=== PATIENT | male | born 1945 | race Caucasian/White ===

== ENCOUNTER → 2017-01-02 | Outpatient (CLI) | payer MEDICARE ==
[2017-01-02 13:09] VITALS: BP 129/74; PULSE 84; TEMP 98.2; BMI 38.0
--- NOTE | 2017-01-02 14:06 | P.HPBAR ---
Bariatric H&P - History & Physicial H&P Date: 01/02/17 History & Physicial: Visit/CC: inital bariatric visit Patient initial contact: Initial weight: Initial weight in pounds: Height: 6 ft 1 in Initial BMI: Last weight: Current weight: 130.952 kg Current weight in pounds: 288.70 Current BMI: 38.0 Marine body weight (based on NIH guidelines): 83.461 kg Excess body weight loss: The patient is a 71 year-old M who presents for Bariatric Assessment. Patient seen in the office today as a new patient for bariatric surgery. He is interested in sleeve gastrectomy. He has a niece who had a gastric bypass. He is not interested in that procedure because of the long-term changes to his body. He does have other individuals that he knows through his niece that had the sleeve and has done well. Denies DVT or dysphagia. No significant reflux symptoms. The patient is on Plavix for a suspected TIA in the past. He has a history of a previous open: E and has a small epigastric incisional hernia related to that. The patient's of her strong hypertension, type 2 diabetes which is diet controlled, hyper cholesterolemia, and chronic back pain. The patient's hopeful that ongoing weight loss will improve the symptoms. He is currently undergoing a supervised weight loss program. Over the last 2 months he has lost approximately 20 pounds. Most recent hemoglobin A1c was 7. He is leaving for [place] in June and will be gone for 3 months so he was hoping to have this done in early April. Review of Systems The patient denies any acute changes in vision or hearing, no dysphagia or odynophagia, no chest pain or shortness of breath, no dysuria or hematuria, no headache, no runny nose, no rectal bleeding or melena Past Medical History Past Medical History: Diabetes Mellitus, Hypertension, Thyroid Disorder Additional Past Medical History / Comment(s): FELL 7-20-15(HIT HEAD HAD CONCUSSION BUT CT SCAN WAS OK), PSORIASES, HEMORRHOIDS, LT SHOULDER IMPINGMENT SYBDROME, HAD THRYOID NODLUE ON LT SIDE AND CYST ON RT SIDE OF THYROID-HAD BPH, SCIATICA History of Any Multi-Drug Resistant Organisms: None Reported Past Surgical History: Cholecystectomy, Hernia Repair Additional Past Surgical History / Comment(s): thyroidECTOMT, RK LASIK, COLONOSCOPY, LT INGUINAL HERNIA, UMBILICAL HERNIA Past Anesthesia/Blood Transfusion Reactions: No Reported Reaction Smoking Status: Never smoker - Past Family History Mother Family Medical History: Liver Disease Additional Family Medical History / Comment(s): MOM WHEN PT WAS 9 YEARS OLD FROM CIRRHOSIS Father Family Medical History: Myocardial Infarction ([place]) Additional Family Medical History / Comment(s): AGE 69 FROM [place] Surgical - Exam Vital Signs Temp Pulse BP 98.2 F 84 129/74 01/02/17 13:04 01/02/17 13:04 01/02/17 13:04 Physical exam: General: Well-developed, well-nourished HEENT: Normocephalic, sclerae nonicteric Abdomen: Nontender, nondistended, right subcostal incision noted, small umbilical and small to moderate incisional hernia noted Extremities: No edema Neuro: Alert and oriented Bariatric Assessment & Plan (1) Morbid obesity Narrative/Plan: The clinical scenario was discussed in detail with the patient. He is interested in sleeve gastrectomy. He and I both agree that he will continue his supervised diet and if he continues to lose weight he may consider holding off on surgery for now. The risks of surgery were discussed in detail but will be discussed with the patient again prior to surgery. We'll proceed with upper endoscopy in March in anticipation for surgery in April. Status: Acute Bariatric Checklist Checklist: Plan: Checklist: EGD: 1. Hiatal hernia: 2. H. Pylori: HgbA1c: Vitamin D: Smoking: Never smoker Primary care physician referral: dr lee Psychiatry clearance: Cardiology clearance: Sleep study: Diet journal: VTE risk score: VTE risk level: Rehab needs at discharge:
== END ==
LOC: BARWHC3 12:46
PROVIDERS: ATTEND Surgery
DX: Z48.815 Encounter for surgical aftercare following surgery on the digestive system (principal); E66.01 Morbid (severe) obesity due to excess calories; Z98.84 Bariatric surgery status
CPT/HCPCS: 99211

== ENCOUNTER 2017-03-03 15:19 | Inpatient (IN) | payer MEDICARE ==
[2017-03-03] MEDS ORDERED: NITROGLYCERIN OINT 1 INCH/GM PACKET TOPICAL STA (15:33)
[2017-03-03] MEDS ORDERED: SODIUM CHLORIDE 0.9% 500 ML IV STA (15:33)
[2017-03-03] MEDS ORDERED: ASPIRIN 81 MG PO STA (15:33)
[2017-03-03] MEDS ORDERED: ACETAMINOPHEN TAB 500 MG TAB PO STA (15:35)
--- NOTE | 2017-03-03 15:37 | ED ---
General Adult HPI - General Chief complaint: Chest Pain Stated complaint: Chest Pain Time Seen by Provider: 03/03/17 15:20 Source: patient, RN notes reviewed Mode of arrival: wheelchair Limitations: no limitations - History of Present Illness Initial comments: This is a 71-year-old male who presents emergency department with past medical history significant for diabetes hypertension high cholesterol. Patient also strong family history of heart disease. Patient presents today with chest pain in the middle of his chest radiating to his back. Patient states it started on and it gets worse with exertion. 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 Patient states currently lying in bed resting with oxygen on and is better than it has been. Patient denies any recent fever chills or cough. Patient denies any diaphoresis. Patient denies vomiting but has some nausea. Patient denies any headache patient denies any numbness or weakness. Patient denies lightheadedness dizziness or near syncopal episode. - Related Data Home Medications Medication Instructions Recorded Confirmed Levothyroxine Sodium [Synthroid] 200 mcg PO DAILY 06/23/14 03/03/17 amLODIPine BESYLATE/BENAZEPRIL 1 tab PO DAILY 03/03/15 03/03/17 [Amlodipine-Benazepril 10-20 mg] Previous Rx's Medication Instructions Recorded Atorvastatin Calcium [Lipitor] 10 mg PO DAILY #90 tab 03/05/15 Clopidogrel [Plavix] 75 mg PO DAILY #90 tablet 03/05/15 Allergies Allergy/AdvReac Type Severity Reaction Status Date / Time No Known Allergies Allergy Verified 03/03/17 15:35 Review of Systems ROS Statement: Those systems with pertinent positive or pertinent negative responses have been documented in the HPI. ROS Other: All systems not noted in ROS Statement are negative. Past Medical History Past Medical History: Diabetes Mellitus, Hypertension, Thyroid Disorder Additional Past Medical History / Comment(s): FELL 01-11-15(HIT HEAD HAD CONCUSSION BUT CT SCAN WAS OK), PSORIASES, HEMORRHOIDS, LT SHOULDER IMPINGMENT SYBDROME, HAD THRYOID NODLUE ON LT SIDE AND CYST ON RT SIDE OF THYROID-HAD BPH, SCIATICA History of Any Multi-Drug Resistant Organisms: None Reported Past Surgical History: Cholecystectomy, Hernia Repair Additional Past Surgical History / Comment(s): thyroidECTOMT, RK LASIK, COLONOSCOPY, LT INGUINAL HERNIA, UMBILICAL HERNIA Past Anesthesia/Blood Transfusion Reactions: No Reported Reaction Past Psychological History: No Psychological Hx Reported Smoking Status: Never smoker Past Alcohol Use History: Occasional Past Drug Use History: None Reported - Past Family History Mother Family Medical History: Liver Disease Additional Family Medical History / Comment(s): MOM WHEN PT WAS 9 YEARS OLD FROM CIRRHOSIS Father Family Medical History: Myocardial Infarction ([place]) Additional Family Medical History / Comment(s): AGE 69 FROM [place] General Exam - General Exam Comments Initial Comments: GENERAL: Patient is well-developed and well-nourished. Patient is nontoxic and well- hydrated and is in mild distress. ENT: Neck is soft and supple. No significant lymphadenopathy is noted. Oropharynx is clear. Moist mucous membranes. Neck has full range of motion without eliciting any pain. EYES: The sclera were anicteric and conjunctiva were pink and moist. Extraocular movements were intact and pupils were equal round and reactive to light. Eyelids were unremarkable. PULMONARY: Unlabored respirations. Good breath sounds bilaterally. No audible rales rhonchi or wheezing was noted. CARDIOVASCULAR: There is a regular rate and rhythm without any murmurs gallops or rubs. ABDOMEN: Soft and nontender with normal bowel sounds. SKIN: Skin is clear with no lesions or rashes and otherwise unremarkable. NEUROLOGIC: Patient is alert and oriented x3. Cranial nerves II through XII are grossly intact. Motor and sensory are also intact. Normal speech, volume and content. Symmetrical smile. MUSCULOSKELETAL: Normal extremities with adequate strength and full range of motion. LYMPHATICS: No significant lymphadenopathy is noted PSYCHIATRIC: Normal psychiatric evaluation. Normal interpersonal interactions appears functionally intact in deals appropriately with others. No signs of depression. No signs of anxiety. Limitations: no limitations Course Vital Signs 03/03/17 15:21 Temperature 97.8 F Pulse Rate 90 Respiratory 18 Rate Blood Pressure 138/74 O2 Sat by Pulse 95 Oximetry Medical Decision Making - Medical Decision Making EKG shows normal sinus rhythm at 95 bpm OK interval 260 QRS is 92 QT interval 356 QTC is 447. Patient's EKG shows no ST segment elevation or depression. Patient has Q waves in inferior leads II, III, and F aVF compared to an old EKG there are no new changes. Chest x-ray shows no acute abnormality. Patient's troponin was mildly elevated so started the patient on troponin. I spoke with Dr. Ramirez he agreed to admit the patient. I spoke with Dr. Beth and he wanted the patient put on heparin as well as nitroglycerin a beta cecilia as well as a statin. I spoke with Dr. Ramirez he agreed to admit the patient he admitted the patient I wrote admitting orders I consult cardiology and I continued heparin Nitropaste and aspirin on the floor. - Lab Data Result diagrams: 03/03/17 15:30 03/03/17 15:30 Lab Results 03/03/17 03/03/17 03/03/17 Range/Units 15:30 15:30 15:30 WBC 9.7 (3.8-10.6) k/uL RBC 4.78 (4.30-5.90) m/uL Hgb 16.0 (13.0-17.5) gm/dL Hct 45.2 (39.0-53.0) % MCV 94.5 (80.0-100.0) fL MCH 33.5 (25.0-35.0) pg MCHC 35.4 (31.0-37.0) g/dL RDW 12.3 (11.5-15.5) % Plt Count 297 (150-450) k/uL Neutrophils % 59 % Lymphocytes % 28 % Monocytes % 8 % Eosinophils % 3 % Basophils % 1 % Neutrophils # 5.7 (1.3-7.7) k/uL Lymphocytes # 2.8 (1.0-4.8) k/uL Monocytes # 0.7 (0-1.0) k/uL Eosinophils # 0.3 (0-0.7) k/uL Basophils # 0.1 (0-0.2) k/uL PT (9.0-12.0) sec INR (<1.2) APTT (22.0-30.0) sec Sodium 141 (137-145) mmol/L Potassium 4.3 (3.5-5.1) mmol/L Chloride 106 (98-107) mmol/L Carbon Dioxide 22 (22-30) mmol/L Anion Gap 13 mmol/L BUN 24 H (9-20) mg/dL Creatinine 1.67 H (0.66-1.25) mg/dL Est GFR (MDRD) Af Amer 50 (>60 ml/min/1.73 sqM) Est GFR (MDRD) Non-Af 41 (>60 ml/min/1.73 sqM) Glucose 119 H (74-99) mg/dL Calcium 9.8 (8.4-10.2) mg/dL Magnesium 1.9 (1.6-2.3) mg/dL Total Bilirubin 0.8 (0.2-1.3) mg/dL AST 37 (17-59) U/L ALT 46 (21-72) U/L Alkaline Phosphatase 69 (38-126) U/L Total Creatine Kinase 364 H (55-170) U/L CK-MB (CK-2) 5.0 H* (0.0-2.4) ng/mL CK-MB (CK-2) Rel Index 1.4 Troponin I 0.278 H* (0.000-0.034) ng/mL Total Protein 7.4 (6.3-8.2) g/dL Albumin 4.5 (3.5-5.0) g/dL 03/03/17 Range/Units 15:30 WBC (3.8-10.6) k/uL RBC (4.30-5.90) m/uL Hgb (13.0-17.5) gm/dL Hct (39.0-53.0) % MCV (80.0-100.0) fL MCH (25.0-35.0) pg MCHC (31.0-37.0) g/dL RDW (11.5-15.5) % Plt Count (150-450) k/uL Neutrophils % % Lymphocytes % % Monocytes % % Eosinophils % % Basophils % % Neutrophils # (1.3-7.7) k/uL Lymphocytes # (1.0-4.8) k/uL Monocytes # (0-1.0) k/uL Eosinophils # (0-0.7) k/uL Basophils # (0-0.2) k/uL PT 10.8 (9.0-12.0) sec INR 1.1 (<1.2) APTT 22.6 (22.0-30.0) sec Sodium (137-145) mmol/L Potassium (3.5-5.1) mmol/L Chloride (98-107) mmol/L Carbon Dioxide (22-30) mmol/L Anion Gap mmol/L BUN (9-20) mg/dL Creatinine (0.66-1.25) mg/dL Est GFR (MDRD) Af Amer (>60 ml/min/1.73 sqM) Est GFR (MDRD) Non-Af (>60 ml/min/1.73 sqM) Glucose (74-99) mg/dL Calcium (8.4-10.2) mg/dL Magnesium (1.6-2.3) mg/dL Total Bilirubin (0.2-1.3) mg/dL AST (17-59) U/L ALT (21-72) U/L Alkaline Phosphatase (38-126) U/L Total Creatine Kinase (55-170) U/L CK-MB (CK-2) (0.0-2.4) ng/mL CK-MB (CK-2) Rel Index Troponin I (0.000-0.034) ng/mL Total Protein (6.3-8.2) g/dL Albumin (3.5-5.0) g/dL Critical Care Time Critical Care Time: Yes Total Critical Care Time: 35 Disposition Clinical Impression: Non-STEMI (non-ST elevated myocardial infarction) Disposition: ADMITTED IP TO THIS HOSP Referrals: Alan Butler DO [Primary Care Provider] - 1-2 days Time of Disposition: 16:34
[2017-03-03 15:43] LABS: Basophils # (A) 0.1 k/uL (0-0.2); Basophils % (A) 1 %; CH 33.5; CHCM 35.5; Eosinophils # (A) 0.3 k/uL (0-0.7); Eosinophils % (A) 3 %; HCT 45.2 % (39.0-53.0); HDW 2.55; Luc # (Auto) 0.17; Luc % (Auto) 2; Lymphocytes # (A) 2.8 k/uL (1.0-4.8); Lymphocytes % (A) 28 %; MCH 33.5 pg (25.0-35.0); MCHC 35.4 g/dL (31.0-37.0); MCV 94.5 fL (80.0-100.0); Mean Platelet Volume 7.1; Monocytes # (A) 0.7 k/uL (0-1.0); Monocytes % (A) 8 %; Neutrophils # (A) 5.7 k/uL (1.3-7.7); Neutrophils % (A) 59 %; RBC 4.78 m/uL (4.30-5.90); RDW 12.3 % (11.5-15.5); WBC 9.7 k/uL (3.8-10.6); WBC (Perox) 9.17
[2017-03-03 15:53] LABS: Calcium 9.8 mg/dL (8.4-10.2); Magnesium 1.9 mg/dL (1.6-2.3); Potassium 4.3 mmol/L (3.5-5.1); Total Bilirubin 0.8 mg/dL (0.2-1.3); Total Protein 7.4 g/dL (6.3-8.2)
[2017-03-03 15:56] LABS: INR 1.1 (<1.2); Partial Thromboplastin Time 22.6 sec (22.0-30.0); Prothrombin Time 10.8 sec (9.0-12.0)
--- NOTE | 2017-03-03 16:05 | XR ---
EXAMINATION TYPE: XR chest 2V DATE OF EXAM: 03/03/2017 COMPARISON: NONE HISTORY: Chest pain TECHNIQUE: Frontal and lateral views of the chest are obtained on 4 images. FINDINGS: There is no focal air space opacity, pleural effusion, or pneumothorax seen. The cardiac silhouette size is Enlarged. There are overlying cardiac leads. Patient is rotated. Surgical clips present in the upper abdomen. The osseous structures are intact. IMPRESSION: Prominence of the cardiac silhouette could be technical.
[2017-03-03 16:18] LABS: Troponin I 0.278 ng/mL (0.000-0.034)
[2017-03-03] MEDS ORDERED: HEPARIN SODIUM,PORCINE 5,000 UNIT/ML 1 ML VIAL IV ONE (16:26)
[2017-03-03] MEDS ORDERED: HEPARIN SODIUM,PORCINE/D5W PMX 25,000 UNIT in DEXTROSE/WATER 1 500ML.BAG IV SCH (16:30)
[2017-03-03] MEDS ORDERED: NITROGLYCERIN SL TABS 0.4 MG TAB SUBLINGUAL PRN (16:35)
[2017-03-03] MEDS ORDERED: ALPRAZolam 0.25 MG TAB PO PRN (18:19)
[2017-03-03] MEDS ORDERED: TEMAZEPAM 15 MG CAP PO PRN (18:19)
[2017-03-03] MEDS: HYDROmorphone 1 MG/ML 1 ML SYRINGE IVP PRN (19:15)
[2017-03-03] MEDS: ATORVASTATIN 40 MG TAB PO SCH (19:40)
[2017-03-03] MEDS: NITROGLYCERIN OINT 1 INCH/GM PACKET TOPICAL SCH ×2 (19:40→23:19)
[2017-03-03] MEDS: METOPROLOL TARTRATE 25 MG TAB PO SCH (19:40)
[2017-03-03] MEDS: SODIUM CHLORIDE 0.9% 1,000 ML IV SCH (19:41)
[2017-03-03 21:19] LABS: Creatine Kinase MB 15.5 ng/mL (0.0-2.4); Troponin I 1.31 ng/mL (0.000-0.034)
[2017-03-03 21:28] LABS: Glucose,Whole Blood 155 mg/dL (75-99)
[2017-03-03 21:34] LABS: Appearance,Urine Clear (Clear); Bilirubin,Urine Negative (Negative); Glucose,Urine (UA) Negative (Negative); Ketones,Urine Negative (Negative); Leukocyte Esterase,Urine Negative (Negative); Nitrite,Urine Negative (Negative); Protein,Urine Negative (Negative); UA Billing (MACRO vs. MICRO) CHEM; Urobilinogen,Urine <2.0 mg/dL (<2.0)
[2017-03-03 21:40] VITALS: BMI 38.0
[2017-03-03] MEDS ORDERED: HEPARIN SODIUM,PORCINE 5,000 UNIT/ML 1 ML VIAL IV PRN (23:18)
[2017-03-03] MEDS: ACETAMINOPHEN TAB 325 MG TAB PO PRN (23:24)
[2017-03-04 03:46] LABS: Basophils # (A) 0.1 k/uL (0-0.2); Basophils % (A) 1 %; CH 33.9; CHCM 35.2; Eosinophils # (A) 0.3 k/uL (0-0.7); Eosinophils % (A) 4 %; HCT 41.7 % (39.0-53.0); HDW 2.46; HGB 14.3 gm/dL (13.0-17.5); Luc # (Auto) 0.14; Luc % (Auto) 2; Lymphocytes # (A) 2.2 k/uL (1.0-4.8); Lymphocytes % (A) 33 %; MCHC 34.2 g/dL (31.0-37.0); MCV 96.5 fL (80.0-100.0); Mean Platelet Volume 7.7; Monocytes # (A) 0.6 k/uL (0-1.0); Monocytes % (A) 9 %; Neutrophils # (A) 3.5 k/uL (1.3-7.7); Neutrophils % (A) 51 %; RBC 4.32 m/uL (4.30-5.90); RDW 13.3 % (11.5-15.5); WBC 6.7 k/uL (3.8-10.6); WBC (Perox) 7.43
[2017-03-04 04:20] LABS: Anion Gap 9 mmol/L; Blood Urea Nitrogen 22 mg/dL (9-20); Calcium 9.1 mg/dL (8.4-10.2); Carbon Dioxide 24 mmol/L (22-30); Chloride 106 mmol/L (98-107); Cholesterol 132 mg/dL (<200); Glucose 109 mg/dL (74-99); HDL Cholesterol 32 mg/dL (40-60); Non-African American GFR(MDRD) 60 (>60 ml/min/1.73 sqM); Potassium 4.2 mmol/L (3.5-5.1); Sodium 139 mmol/L (137-145)
[2017-03-04 04:47] LABS: Creatine Kinase MB 21.5 ng/mL (0.0-2.4); Troponin I 4.03 ng/mL (0.000-0.034)
[2017-03-04] MEDS: HYDROmorphone 1 MG/ML 1 ML SYRINGE IVP PRN (04:56)
[2017-03-04] MEDS: NITROGLYCERIN OINT 1 INCH/GM PACKET TOPICAL SCH ×2 (04:56→10:01)
[2017-03-04] MEDS: SODIUM CHLORIDE 0.9% 1,000 ML IV SCH ×2 (06:09→13:43)
[2017-03-04] MEDS: LEVOTHYROXINE 100 MCG TAB PO SCH (06:09)
[2017-03-04] MEDS: PANTOPRAZOLE 40 MG TABLET PO SCH (06:09)
[2017-03-04 06:55] LABS: Glucose,Whole Blood 124 mg/dL (75-99)
[2017-03-04] MEDS: amLODIPine 10 MG TAB PO SCH (08:33)
[2017-03-04] MEDS: CLOPIDOGREL 75 MG TAB PO SCH (08:33)
[2017-03-04] MEDS: METOPROLOL TARTRATE 25 MG TAB PO SCH (08:33)
[2017-03-04] MEDS: LISINOPRIL 20 MG TAB PO SCH (08:34)
[2017-03-04] MEDS ORDERED: ASPIRIN 325 MG TAB PO SCH (09:00)
--- NOTE | 2017-03-04 09:02 | P.CRDCN ---
History of Present Illness Consult date: 03/04/17 Consult reason: non-Q-wave [place] History of present illness: 71-year-old gentleman with history of hypertension hypothyroidism and dyslipidemia and TIA comes to Hospital complaining of chest pain. He has been having on and off episodes of chest pressure moderate intensity precordial that radiated to his back from . It was worse yesterday and hence patient came to hospital. It is associated with some shortness of breath. There is no diaphoresis. There is no prior history of coronary artery disease or congestive heart failure. There is no history of leg edema from cystoscopy nocturnal dyspnea or orthopnea. His EKG shows evidence of prior inferior wall myocardial infarction. However this was noted on an EKG done in 2014. On his initial presentation the troponin was slightly elevated the peak troponin was 4. At the time of my evaluation this morning he still has some chest discomfort but this has improved significantly from his initial presentation. His creatinine is slightly elevated at 1.2. Given his clinical presentation abnormal EKG and elevated cardiac enzymes I advised the patient to undergo cardiac catheterization. Given the ongoing chest discomfort I am going to perform the heart catheterization this morning . Patient had been explained of risk benefits and alternatives understood and accepted Coronary risk factors are in the form of hypertension and dyslipidemia Review of Systems Constitutional: Denies chills. Denies fever. Eyes: Denies blurred vision. Denies pain. Ears, nose, mouth and throat: Denies headache. Denies sore throat. Cardiovascular: has chest pain. Denies shortness of breath. Respiratory: Denies cough. Gastrointestinal: Denies abdominal pain. Denies diarrhea. Denies nausea. Denies vomiting. Musculoskeletal: Denies myalgias. Integumentary: Denies pruritus. Denies rash. Neurological: Denies numbness. Denies weakness. Psychiatric: Denies anxiety. Denies depression. Endocrine: Denies fatigue. Denies weight change. Genitourinary: Denies burning, hematuria, frequency of urination. Hematological: No anemia or excess bleeding. Past Medical History Past Medical History: Diabetes Mellitus, Hypertension, Thyroid Disorder Additional Past Medical History / Comment(s): FELL 7-20-15(HIT HEAD HAD CONCUSSION BUT CT SCAN WAS OK), PSORIASES, HEMORRHOIDS, LT SHOULDER IMPINGMENT SYBDROME, HAD THRYOID NODLUE ON LT SIDE AND CYST ON RT SIDE OF THYROID-HAD BPH, SCIATICA History of Any Multi-Drug Resistant Organisms: None Reported Past Surgical History: Cholecystectomy, Hernia Repair Additional Past Surgical History / Comment(s): thyroidectomy, RK LASIK, COLONOSCOPY, LT INGUINAL HERNIA, UMBILICAL HERNIA Past Anesthesia/Blood Transfusion Reactions: No Reported Reaction Past Psychological History: No Psychological Hx Reported Smoking Status: Never smoker Past Alcohol Use History: Occasional Past Drug Use History: None Reported - Past Family History Mother Family Medical History: Liver Disease Additional Family Medical History / Comment(s): MOM WHEN PT WAS 9 YEARS OLD FROM CIRRHOSIS Father Family Medical History: Myocardial Infarction ([place]) Additional Family Medical History / Comment(s): AGE 69 FROM [place] Medications and Allergies Home Medications Medication Instructions Recorded Confirmed Type Levothyroxine Sodium [Synthroid] 200 mcg PO DAILY 06/23/14 03/03/17 History amLODIPine BESYLATE/BENAZEPRIL 1 tab PO DAILY 03/03/15 03/03/17 History [Amlodipine-Benazepril 10-20 mg] Atorvastatin Calcium [Lipitor] 10 mg PO DAILY #90 tab 03/05/15 03/03/17 Rx Clopidogrel [Plavix] 75 mg PO DAILY #90 tablet 03/05/15 03/03/17 Rx Allergies Allergy/AdvReac Type Severity Reaction Status Date / Time No Known Allergies Allergy Verified 03/03/17 15:35 Physical Exam Vitals: Vital Signs Temp Pulse Pulse Resp BP BP Pulse Ox 03/04/17 03:46 97.0 F L 61 16 106/67 95 03/04/17 00:00 63 16 102/53 94 L 03/03/17 20:00 97.1 F L 71 18 120/72 94 L 03/03/17 16:58 74 18 130/74 96 03/03/17 16:48 97.1 F L 71 18 120/72 94 L 03/03/17 16:30 82 18 113/66 94 L 03/03/17 16:00 84 16 137/77 93 L 03/03/17 15:21 97.8 F 90 18 138/74 95 Intake and Output 03/03/17 03/04/17 03/04/17 22:59 06:59 14:59 Intake Total 360 131.667 Output Total 300 250 Balance 60 -118.333 Intake: Intake, IV Titration 131.667 Amount Heparin Sodium,Porcine/ 131.667 D5w Pmx 25,000 unit In Dextrose/Water 1 500ml. bag @ 7.875 UNITS/KG/HR 20 mls/hr IV .Q24H [facility] Rx #:[id number] Oral 360 Output: Urine 300 250 Other: Voiding Method Toilet Urinal # Voids 1 Weight 127.006 kg 130.3 kg General: The patient is awake and alert, in no distress, and does not appear acutely ill. Skin: Skin is warm and dry and no rashes or lesions are noted. Eye: Pupils are equal, round and reactive to light, extra-ocular movements are intact; there is normal conjunctiva bilaterally. Ears, nose, mouth and throat: There are moist mucous membranes and no oral lesions. Neck: The neck is supple, there is no tenderness or JVD. Cardiovascular: There is a regular rate and rhythm. No murmur, rub or gallop is appreciated. Respiratory: Lungs are clear to auscultation, respirations are non-labored, breath sounds are equal. Gastrointestinal: Soft, non-distended, non-tender abdomen without masses or organomegaly noted. There is no rebound or guarding present. Bowel sounds are unremarkable. Back: There is no tenderness to palpation in the midline. There is no obvious deformity. Musculoskeletal: Normal ROM, no tenderness, There is no pedal edema. There is no calf tenderness or swelling. Extremities: No edema. Vascular: Femoral pulse is normal. Posterior tibial pulses are normal .Dorsalis pedis is palpable. Neurological: CN II-XII intact. There are no obvious motor or sensory deficits. Speech is normal. Psychiatric: Cooperative, appropriate mood & affect, normal judgment. Results 03/04/17 03:21 03/04/17 03:21 Cardiac Enzymes 03/03/17 03/03/17 03/03/17 Range/Units 15:30 15:30 20:17 AST 37 (17-59) U/L CK-MB (CK-2) 5.0 H* 15.5 H* (0.0-2.4) ng/mL Troponin I 0.278 H* 1.310 H* (0.000-0.034) ng/mL 03/04/17 Range/Units 03:21 AST (17-59) U/L CK-MB (CK-2) 21.5 H* (0.0-2.4) ng/mL Troponin I 4.030 H* (0.000-0.034) ng/mL Coagulation 03/03/17 03/03/17 03/04/17 Range/Units 15:30 22:36 05:35 PT 10.8 (9.0-12.0) sec APTT 22.6 32.0 H 52.2 H (22.0-30.0) sec Lipids 03/04/17 Range/Units 03:21 Triglycerides 114 (<150) mg/dL Cholesterol 132 (<200) mg/dL HDL Cholesterol 32 L (40-60) mg/dL CBC 03/03/17 03/04/17 Range/Units 15:30 03:21 WBC 9.7 6.7 (3.8-10.6) k/uL RBC 4.78 4.32 (4.30-5.90) m/uL Hgb 16.0 14.3 (13.0-17.5) gm/dL Hct 45.2 41.7 (39.0-53.0) % Plt Count 297 241 (150-450) k/uL Comprehensive Metabolic Panel 03/03/17 03/04/17 Range/Units 15:30 03:21 Sodium 141 139 (137-145) mmol/L Potassium 4.3 4.2 (3.5-5.1) mmol/L Chloride 106 106 (98-107) mmol/L Carbon Dioxide 22 24 (22-30) mmol/L BUN 24 H 22 H (9-20) mg/dL Creatinine 1.67 H 1.20 (0.66-1.25) mg/dL Glucose 119 H 109 H (74-99) mg/dL Calcium 9.8 9.1 (8.4-10.2) mg/dL AST 37 (17-59) U/L ALT 46 (21-72) U/L Alkaline Phosphatase 69 (38-126) U/L Total Protein 7.4 (6.3-8.2) g/dL Albumin 4.5 (3.5-5.0) g/dL Current Medications Generic Name Dose Route Start Last Admin Trade Name Freq PRN Reason Stop Dose Admin Acetaminophen 650 mg 03/03/17 23:07 03/03/17 23:24 Tylenol Tab PO 650 mg Q6HR PRN Administration Fever and/ or MILD Pain Alprazolam 0.25 mg 03/03/17 18:19 Xanax PO TID PRN Anxiety Amlodipine Besylate 10 mg 03/04/17 09:00 03/04/17 08:33 Norvasc PO 10 mg DAILY [facility] Administration Aspirin 325 mg 03/04/17 09:00 03/04/17 08:34 Aspirin PO 325 mg DAILY [facility] Administration Atorvastatin Calcium 40 mg 03/03/17 21:00 03/03/17 19:40 Lipitor PO 40 mg HS [facility] Administration Clopidogrel Bisulfate 75 mg 03/04/17 09:00 03/04/17 08:33 Plavix PO 75 mg DAILY [facility] Administration Heparin Sodium (Porcine) 0 unit 03/03/17 23:18 03/03/17 23:25 Heparin IV 4,000 unit PER PROTOCOL PRN Administration Low PTT Protocol Hydromorphone HCl 0.5 mg 03/03/17 18:43 03/04/17 04:56 Dilaudid IVP 0.5 mg Q4HR PRN Administration Moderate to Severe Pain Heparin Sodium/Dextrose 25,000 500 mls @ 20 mls/hr 03/03/17 16:30 03/03/17 23 :28 unit/ IV Solution IV 10.8 units/kg/hr .Q24H [facility] 27.43 mls/hr Protocol Titration 7.875 UNITS/KG/HR Sodium Chloride 1,000 mls @ 75 mls/hr 03/03/17 18:45 03/04/17 06:09 Saline 0.9% IV 75 mls/hr .[id number] [facility] Administration Levothyroxine Sodium 200 mcg 03/04/17 06:30 03/04/17 06:09 Synthroid PO 200 mcg DAILY@0630 [facility] Administration Lisinopril 20 mg 03/04/17 09:00 03/04/17 08:34 Zestril PO 20 mg DAILY [facility] Administration Metoprolol Tartrate 25 mg 03/03/17 21:00 03/04/17 08:33 Lopressor PO 25 mg BID [facility] Administration Nitroglycerin 1 inch 03/03/17 20:00 03/04/17 04:56 Nitro-Bid Oint TOPICAL 1 inch Q6HR [facility] Administration Nitroglycerin 0.4 mg 03/03/17 16:35 Nitrostat SUBLINGUAL Q5M PRN Chest Pain Pantoprazole Sodium 40 mg 03/04/17 07:30 03/04/17 06:09 Protonix PO 40 mg [id number] [facility] Administration Temazepam 15 mg 03/03/17 18:19 Restoril PO HS PRN Insomnia Intake and Output 03/03/17 03/04/17 03/04/17 22:59 06:59 14:59 Intake Total 360 131.667 Output Total 300 250 Balance 60 -118.333 Intake: Intake, IV Titration 131.667 Amount Heparin Sodium,Porcine/ 131.667 D5w Pmx 25,000 unit In Dextrose/Water 1 500ml. bag @ 7.875 UNITS/KG/HR 20 mls/hr IV .Q24H [facility] Rx #:[id number] Oral 360 Output: Urine 300 250 Other: Voiding Method Toilet Urinal # Voids 1 Weight 127.006 kg 130.3 kg 03/04/17 03:21 03/04/17 03:21 EKG Interpretations (text) Normal sinus rhythm with inferior wall myocardial infarction old Assessment and Plan Plan: Acute non-ST segment elevation [place] Hypertension Dyslipidemia Patient is stable hemodynamically I advised him to undergo cardiac catheterization to evaluate his coronary anatomy and streamline his management. I have explained to him risk benefits and alternatives. Patient in the meantime we'll continue aspirin Plavix statins and papi inhibitors and beta blockers.
[2017-03-04] MEDS ORDERED: NITROGLYCERIN SL TABS 0.4 MG TAB SUBLINGUAL PRN ×2 (09:03→12:07)
[2017-03-04] MEDS ORDERED: ASPIRIN 325 MG TAB PO STA (09:03)
[2017-03-04] MEDS ORDERED: ALPRAZolam 0.25 MG TAB PO PRN (09:03)
[2017-03-04] MEDS ORDERED: ATORVASTATIN 80 MG TAB PO STA (09:03)
[2017-03-04] MEDS ORDERED: SODIUM CHLORIDE 0.9% 1,000 ML in EMPTY BAG 1 BAG IV ONE (09:03)
--- NOTE | 2017-03-04 10:28 | HP ---
HISTORY AND PHYSICAL I am covering for Dr. Butler. CHIEF COMPLAINT: Chest pain DATE OF SERVICE: 03/03/2017 HISTORY OF PRESENT ILLNESS: This 71-year-old gentleman with a past medical history of hypertension, hyperlipidemia, diabetes being followed by Dr. Alan Butler in the outpatient setting complaining of chest discomfort which is ongoing for the 2-3 days. This is felt in the anterior part of the chest, which was radiating to the back and the pain is getting worse on exertion and because of worsening pain the patient came to [facility] and admitted for further evaluation and treatment. EKG showed right bundle branch block as well as QS complexes in the II, III and aVF reported as inferior myocardial infarction but almost similar to the previous EKG. The creatinine was found to be 1.67, troponin 0.278. Cardiology was consulted from the ER and patient admitted for further evaluation and treatment. Dr. Mariscal talked to about the case with heat and frost insulator helper. There is no history of fever, rigors. No history of headache, loss of consciousness, seizures. The patient is started on IV heparin, nitroglycerin and patient is rating the pain as 2/10 at this time. PAST MEDICAL HISTORY: History of diabetes mellitus, hypertension, hyperlipidemia, hypothyroidism, cholecystectomy. MEDICATIONS: Prior to admission include: 1. Amlodipine benazepril 10/20 p.o. daily. 2. Synthroid 200 mcg daily. 3. Plavix 75 mg. 4. Lipitor 10 mg daily. ALLERGIES: None. FAMILY HISTORY: History of liver disease and cirrhosis. SOCIAL HISTORY: Occasional alcohol. No history of smoking. REVIEW OF SYSTEMS: ENT: No diminished hearing or vision. CARDIOVASCULAR: As mentioned earlier. RESPIRATORY: No cough or hemoptysis. GI: No nausea. : No dysuria. NERVOUS SYSTEM: No numbness or weakness. ALLERGY/IMMUNOLOGY: No asthma or hayfever. MUSCULOSKELETAL: As mentioned early. HEMATOLOGY: No history of anemia. ENDOCRINE: As mentioned earlier. CONSTITUTIONAL: As mentioned earlier. DERMATOLOGY: Negative. RHEUMATOLOGY: Negative. PSYCHIATRY: As mentioned earlier. PHYSICAL EXAMINATION: Alert and oriented x3. Pulse 75, blood pressure 127/74, respiration 18, temperature 97.8, pulse ox 94% on 2 L. HEENT: Conjunctivae normal. Oral mucosa moist. NECK: No jugular venous distention. No carotid bruit. No lymph node enlargement. CARDIOVASCULAR: S1, S2 muffled. No S3, no S4. RESPIRATORY: Breath sounds diminished in the bases. No rhonchi. No crackles. ABDOMEN: Soft, nontender. No mass palpable. No hepatosplenomegaly. LEGS: No edema. No swelling. NERVOUS SYSTEM: Higher functions as mentioned earlier. Moves all four limbs. No focal motor sensory deficits. LYMPHATICS: No lymphadenopathy in the neck, axillae or groin. SKIN: No rash, ulcer or bleeding. LAB: CBC within normal limits. Creatinine 1.67. Troponin 0.278. The chest x-ray reviewed showed no acute abnormality. ASSESSMENT: 1. Chest pain, possible unstable angina, for acute non ST-segment elevation myocardial infarction. 2. Troponin 0.278. 3. Right bundle branch block as well as QS complex in inferior leads. 4. Increased creatinine with possibly chronic kidney disease stage III. 5. Diabetes mellitus type 2. 6. Hypertension. 7. Hyperlipidemia. 8. Hypothyroidism. 9. Cholecystectomy. RECOMMENDATIONS AND DISCUSSION: In this 71-year-old gentleman who presented with multiple complex medical issues, will monitor the patient closely. Continue the current medications, continue symptomatic treatment. Resume the the home medications. Antiplatelet agents otherwise. Unstable angina protocol. Prognosis guarded because of multiple complex medical issues. Discussed with the patient who understands and agrees. Will follow the patient closely with Cardiology, who was consulted by Dr. Mariscal in the ER and further recommendations to follow. ELMA / IGORN: [id number] /
[2017-03-04] MEDS ORDERED: IV FLUID CONTINUATION 1,000 ML IV ONE (10:47)
[2017-03-04] MEDS ORDERED: LIDOCAINE 2% INJ 20 MG/ML (20 ML MDV) ONE ×2 (11:02→11:56)
[2017-03-04] MEDS ORDERED: MIDAZOLAM 2 MG/2 ML VIAL ONE (11:08)
[2017-03-04] MEDS ORDERED: diphenhydrAMINE 50 MG/ML 1 ML VIAL ONE (11:08)
[2017-03-04] MEDS ORDERED: MIDAZOLAM 2 MG/2 ML VIAL IV ONE (11:09)
[2017-03-04] MEDS ORDERED: diphenhydrAMINE 50 MG/ML 1 ML VIAL IVP ONE (11:11)
[2017-03-04] MEDS ORDERED: LIDOCAINE 2% INJ 20 MG/ML SQ ONE ×2 (11:14→11:58)
[2017-03-04] MEDS ORDERED: fentaNYL (PF) 50 MCG/ML 2 ML AMP ONE (11:15)
[2017-03-04] MEDS ORDERED: fentaNYL (PF) 50 MCG/ML 2 ML AMP IV ONE (11:16)
[2017-03-04] MEDS ORDERED: BIVALIRUDIN BOLUS 250 MG/50 ML IV ONE (11:33)
[2017-03-04] MEDS ORDERED: BIVALIRUDIN 250 MG in SODIUM CHLORIDE 0.9% 50 ML IV ONE (11:35)
[2017-03-04] MEDS ORDERED: NITROGLYCERIN 1000MCG/10ML SYRINGE INTRACORON ONE (11:52)
[2017-03-04] MEDS ORDERED: CLOPIDOGREL 75 MG TAB ONE (11:55)
[2017-03-04] MEDS ORDERED: IOHEXOL 350 MG/ML 125ML BOTTLE INJ ONE (12:00)
[2017-03-04] MEDS ORDERED: CLOPIDOGREL 75 MG TAB PO ONE (12:03)
[2017-03-04] MEDS ORDERED: RX INFO: IV CONTRAST WAS GIVEN 1 EACH MISC MISCELLANE PRN (12:07)
[2017-03-04] MEDS ORDERED: ATROPINE SULFATE 0.1 MG/ML 10ML SYRINGE IV PRN (12:07)
[2017-03-04] MEDS ORDERED: ZOLPIDEM 5 MG TAB PO PRN (12:07)
[2017-03-04] MEDS ORDERED: MAG HYDROX/AL HYDROX/SIMETH 30 ML CUP PO PRN (12:07)
--- NOTE | 2017-03-04 12:10 | P.OP ---
Date of Procedure: 03/04/17 Preoperative Diagnosis: Postoperative Diagnosis: Procedure(s) Performed: Implants: Anesthesia: MAC (Total sedation time was 15 minutes) Indications for Procedure: Non-ST segment elevation CA Operative Findings: Referring Physician: Indication: Non-ST segment elevation CA Procedure Note: After obtaining informed consent left heart catheterization and coronary angiogram were performed via the right femoral artery using standard Ángel catheters. Patient tolerated the procedure well without any obvious immediate complications. 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
--- NOTE | 2017-03-04 12:46 | LTR ---
Date: Dear Dr. Butler: Thank you for the opportunity to participate in the care of Mr. Duy Lyons. This gentleman presented with acute non ST elevation [place]. He underwent stenting of LAD. Excellent angiographic result was achieved. I expect he should be able to be discharged in next 48 hours if he remains stable. A 3.25 caliber 18 mm long drug-eluting stent was deployed. Thank you for your referral and please call for questions. With kindest regards, Sincerely yours. MMKEML / IJN: [id number] /
--- NOTE | 2017-03-04 12:52 | PTCA ---
PERCUTANEOUSTRANS CORORONARY ANGIOGRAPHY PROCEDURE PERFORMED: PTCA and stenting of mid LAD. PERFORMED BY: Dr. Srini Meyer. CLINICAL INFORMATION: Mr. Duy Lyons is a 71-year-old gentleman with history of hypertension, hyperlipidemia, who presented to hospital with chest pain and troponin elevation, was evaluated by Dr. Beth who performed a cardiac cath which revealed 95% mid LAD lesion involving an area of ulceration. This was a fairly long lesion. He was advised intervention in the same setting. PROCEDURE: The existing 6-Chinese introducer in the right femoral artery was used to perform the procedure. Standard left Ángel type guide catheter was used to cannulate the left coronary artery. A BMW wire was used to cross the lesion. Predilatation was performed using a 2.5 caliber 20 mm long Euphora balloon. I then deployed a 3.25 caliber 18 mm long Xience stent at 11-12 atmospheres. Patient did not have significant chest pain but had precordial ST elevation. Excellent angiographic result was achieved. Patient tolerated procedure well without complication. The sheath was taken out and I applied a Perclose device. I could not get a good hemostasis. The device was therefore not really applied and manual compression was used. Patient had transient vasovagal episode requiring IV fluids. Hemostasis was secured. A Femstop was applied. He was sent to the room in a stable condition. Excellent angiographic result without complication was achieved. The patient received Angiomax bolus and infusion as per protocol. He was already on Plavix and received an additional 300 units of Plavix orally as a loading dose. The patient was already on Plavix for a TIA that occurred about 2 years ago. Moderate conscious sedation was provided for a total duration of 45 minutes. Patient was monitored very closely. MMODL / IJN: [id number] /
[2017-03-04] MEDS: ACETAMINOPHEN TAB 325 MG TAB PO PRN ×2 (13:41→22:33)
[2017-03-04] MEDS: METOPROLOL TARTRATE 12.5 MG TAB PO SCH ×2 (13:42→20:00)
[2017-03-04 17:03] LABS: Glucose,Whole Blood 177 mg/dL (75-99)
[2017-03-04] MEDS: ALPRAZolam 0.5 MG TAB PO PRN (17:05)
[2017-03-04] MEDS: ATORVASTATIN 40 MG TAB PO SCH (20:00)
[2017-03-04 20:51] LABS: Glucose,Whole Blood 135 mg/dL (75-99)
--- NOTE | 2017-03-04 21:49 | PN ---
PROGRESS NOTE DATE OF SERVICE: 03/04/2017 This is a progress note. INTERVAL HISTORY: This 71-year-old gentleman who was admitted with chest pain. Had a possible acute non ST-segment elevation myocardial infarction. The patient underwent a cardiac catheterization. As well as stenting of the LAD. No chest pain. No palpitations. The patient is complaining of back pain but no chest pain. No palpitations at this time. Please refer to Cardiology note for further information. EXAM: Alert and oriented times three. Pulse 93, blood pressure is 119/72, respiration 18, temperature 97.4, pulse ox 94% on room air. HEENT: Conjunctivae normal. Oral mucosa moist. Neck is no jugular venous distention. No carotid bruit. No lymph node enlargement. Cardiovascular: S1, S2 muffled. Respiratory: Breath sounds diminished at the bases. No rhonchi. No crackles. ABDOMEN: Soft, nontender. Legs are no edema. No swelling. Central nervous system: No focal deficits. LABORATORY DATA: CBC within normal limits. Glucose 109, 124 and 77, troponin 4.030, HDL 32. ASSESSMENT: 1. Acute [id number] elevation anterior wall myocardial infarction, status post cardiac catheterization and LAD stenting. 2. Troponin 4.030. 3. Right bundle branch block as well as QRS complexes in the inferior leads. 4. Increased creatinine with possible chronic kidney disease stage 3. 5. Diabetes type 2. 6. Hypertension. 7. Hyperlipidemia. 8. Hypothyroidism. 9. History of cholecystectomy. RECOMMENDATIONS AND DISCUSSION: Continue current medications. Continue current management. Symptomatic treatment. Continue dual antiplatelet treatment. Continue with beta blockers. Closely follow with Cardiology and symptomatic treatment. Hemoglobin is 14.3 at this time. We will repeat the labs tomorrow as well. Further recommendations to follow. Dr. Butler will follow. Continue the telemetry and close monitoring. Dr. Butler will follow. MMODL / IJN: [id number] / MTDD
[2017-03-05] MEDS: SODIUM CHLORIDE 0.9% 1,000 ML IV SCH ×3 (01:14→18:13)
[2017-03-05] MEDS: ACETAMINOPHEN TAB 325 MG TAB PO PRN (05:38)
[2017-03-05 05:56] LABS: Basophils % (A) 0 %; CH 33.9; CHCM 35.5; Eosinophils # (A) 0.2 k/uL (0-0.7); Eosinophils % (A) 2 %; HCT 40.2 % (39.0-53.0); HDW 2.47; HGB 13.8 gm/dL (13.0-17.5); Luc % (Auto) 2; Lymphocytes # (A) 2.1 k/uL (1.0-4.8); Lymphocytes % (A) 23 %; MCH 32.9 pg (25.0-35.0); MCHC 34.4 g/dL (31.0-37.0); MCV 95.7 fL (80.0-100.0); Mean Platelet Volume 7.8; Monocytes # (A) 0.8 k/uL (0-1.0); Monocytes % (A) 8 %; Neutrophils # (A) 5.9 k/uL (1.3-7.7); Neutrophils % (A) 64 %; RBC 4.19 m/uL (4.30-5.90); RDW 13.2 % (11.5-15.5); WBC 9.3 k/uL (3.8-10.6); WBC (Perox) 8.91
[2017-03-05 06:30] LABS: Anion Gap 8 mmol/L; Blood Urea Nitrogen 17 mg/dL (9-20); Calcium 9.1 mg/dL (8.4-10.2); Carbon Dioxide 23 mmol/L (22-30); Chloride 105 mmol/L (98-107); Glucose 113 mg/dL (74-99); Non-African American GFR(MDRD) 60 (>60 ml/min/1.73 sqM); Potassium 4.5 mmol/L (3.5-5.1); Sodium 136 mmol/L (137-145)
[2017-03-05 06:41] LABS: Glucose,Whole Blood 116 mg/dL (75-99)
[2017-03-05] MEDS: PANTOPRAZOLE 40 MG TABLET PO SCH (06:50)
[2017-03-05] MEDS: LEVOTHYROXINE 100 MCG TAB PO SCH (06:50)
--- NOTE | 2017-03-05 09:18 | P.PN ---
Subjective Principal diagnosis: Non-ST segment elevation VA Patient presented to hospital with non-ST segment elevation VA underwent cardiac catheterization by me that revealed a 95% stenosis in mid LAD that was successfully stented. His post-stent course was complicated by problems with hemostasis. He developed a hematoma and extensive ecchymosis. The could not apply a Perclose device on him. This morning he has a firm stop on. And is free of symptoms otherwise. He is an optimal medical therapy including aspirin Plavix beta blockers nitrates and statins Objective - Vital Signs Vital signs: Vital Signs Temp 97.3 F L 03/05/17 04:45 Pulse 63 03/05/17 04:45 Resp 16 03/05/17 04:45 BP 104/55 03/05/17 04:45 Pulse Ox 95 03/05/17 04:45 Intake & Output 03/04/17 03/05/17 03/05/17 18:59 06:59 18:59 Intake Total 293.71 180 Output Total 0 400 Balance 293.71 -220 Intake: IV 293.71 Oral 180 Output: Urine 0 400 Other: Voiding Method Urinal # Voids 2 - Exam Patient is comfortable at rest vital signs are stable there is a jugular venous distention chest exam reveals good air entry bilaterally heart exam reveals first and second heart sounds no gallop abdomen is soft exam extremities did not reveal any edema per for pulses are felt right groin exam reveals extensive ecchymosis from stump is in place for pulses are intact. Hemoglobin is normal creatinine is 1.2 I'm going to review the EKG on him from this morning - Labs CBC & Chem 7: 03/05/17 05:40 03/05/17 05:40 Labs: Abnormal Lab Results - Last 24 Hours (Table) 03/04/17 03/04/17 03/05/17 Range/Units 16:57 20:49 05:40 RBC 4.19 L (4.30-5.90) m/uL Sodium (137-145) mmol/L Glucose (74-99) mg/dL POC Glucose (mg/dL) 177 H 135 H (75-99) mg/dL 03/05/17 03/05/17 Range/Units 05:40 06:39 RBC (4.30-5.90) m/uL Sodium 136 L (137-145) mmol/L Glucose 113 H (74-99) mg/dL POC Glucose (mg/dL) 116 H (75-99) mg/dL Assessment and Plan Plan: Acute non-ST segment elevation VA Status post cath and angioplasty of LAD Right groin hematoma Patient is doing well hemoglobin is stable on optimal medical therapy. Had been remote this morning. Ambulate him after couple of hours if he does well discharge home tomorrow
[2017-03-05] MEDS: CLOPIDOGREL 75 MG TAB PO SCH (09:32)
[2017-03-05] MEDS: METOPROLOL TARTRATE 12.5 MG TAB PO SCH ×2 (09:32→20:31)
[2017-03-05] MEDS: ASPIRIN 81 MG PO SCH (09:32)
[2017-03-05] MEDS: LISINOPRIL 20 MG TAB PO SCH (09:32)
[2017-03-05] MEDS: amLODIPine 10 MG TAB PO SCH (09:32)
--- NOTE | 2017-03-05 10:41 | P.PN ---
Subjective Principal diagnosis: This is a 71-year-old male seen and examined this morning on rounds with Dr. Butler. The patient was admitted for a NSTEMI. He underwent cardiac catheterization with stent placement. He states he is discouraged this morning because he thought he would be able to go home today. However, post cardiac catheterization there was difficulty achieving hemostasis. The patient developed a hematoma in the right groin and is currently wearing a fem-stop. He denies any chest pain or shortness of breath. He is tolerating his diet without nausea and vomiting. He states his appetite is fair. His laboratory values have been reviewed. He has been afebrile his vital signs have been stable. Objective - Vital Signs Vital signs: Vital Signs Temp 98.1 F 03/05/17 09:10 Pulse 66 03/05/17 09:10 Resp 16 03/05/17 09:10 BP 120/70 03/05/17 09:10 Pulse Ox 93 L 03/05/17 09:10 Intake & Output 03/04/17 03/05/17 03/05/17 18:59 06:59 18:59 Intake Total 293.71 180 Output Total 0 400 Balance 293.71 -220 Intake: IV 293.71 Oral 180 Output: Urine 0 400 Other: Voiding Method Urinal # Voids 2 - Exam GENERAL: Alert and oriented. Appears in no acute distress. Pleasant. RESPIRATORY: Lungs clear bilaterally. No use of accessory muscles. Patient maintaining oxygen saturation greater than 92% on room air. CARDIOVASCULAR: S1 and S2 noted. No murmurs auscultated. No JVD noted. EXTREMITIES: No edema noted. Palpable pedal pulses +2. ABDOMEN: No distention noted. Abdomen soft and round. Normal active bowel sounds auscultated 4 quadrants. No pain or tenderness noted upon palpation. SKIN: Large ecchymosis to right groin noted - Labs CBC & Chem 7: 03/06/17 05:57 03/05/17 05:40 Labs: Abnormal Lab Results - Last 24 Hours (Table) 03/04/17 03/04/17 03/05/17 Range/Units 16:57 20:49 05:40 RBC 4.19 L (4.30-5.90) m/uL Sodium (137-145) mmol/L Glucose (74-99) mg/dL POC Glucose (mg/dL) 177 H 135 H (75-99) mg/dL 03/05/17 03/05/17 Range/Units 05:40 06:39 RBC (4.30-5.90) m/uL Sodium 136 L (137-145) mmol/L Glucose 113 H (74-99) mg/dL POC Glucose (mg/dL) 116 H (75-99) mg/dL Assessment and Plan Plan: ASSESSMENT: NSTEMI, s/p cardiac catheterization with stent placement to the LAD Right groin hematoma, resolving, s/p cardiac catheterization and difficulty achieving hemostasis Elevated troponins, present on admission, related to NSTEMI History of diabetes mellitus, type II History of hyperlipidemia Essential hypertension Acute on chronic renal failure, baseline Cr. 1.2-1.4. Creatinine on admission 1.67 PLAN: -Continue to monitor right groin cardiac catheterization site -Continue Plavix, beta blockers, aspirin, and statin per cardiology recommendations -GI prophylaxis: Protonix 40 mg daily -DVT prophylaxis: Receiving aspirin and Plavix. Heparin on hold due to right groin hematoma and difficulty achieving hemostasis -Monitor labs -Monitor vital signs and address as appropriate -Anticipate discharge within the next 24 hours The above impression and plan of care have been discussed and directed by signing physician. Amira Obrien, nurse practitioner, acting as scribe for signing physician.
--- NOTE | 2017-03-05 11:27 | ECHOF ---
Referral Reason:Ant NSTEMI MEASUREMENTS -------- HEIGHT: 182.9 cm WEIGHT: 130.2 kg BP: 104/55 RVIDd: 2.7 cm (< 3.3) IVSd: 1.5 cm (0.6 - 1.1) LVIDd: 5.5 cm (3.9 - 5.3) LVPWd: 1.4 cm (0.6 - 1.1) IVSs: 1.7 cm LVIDs: 3.2 cm LVPWs: 1.4 cm Ao Diam: 3.3 cm (2.0 - 3.7) AV Cusp: 1.5 cm (1.5 - 2.6) LA Diam: 3.9 cm (2.7 - 3.8) MV EXCURSION: 16.898 mm (> 18.000) MV EF SLOPE: 52 mm/s (70 - 150) EPSS: 0.9 cm MV E Tip: 0.61 m/s MV DecT: 220 ms MV A Tip: 0.80 m/s MV E/A Ratio: 0.76 AV maxP.93 mmHg AV meanP.48 mmHg RAP: 5.00 mmHg RVSP: 14.84 mmHg FINDINGS -------- Sinus rhythm. Morbid Obesity The left ventricular size is normal. There is mild concentric left ventricular hypertrophy. Overall left ventricular systolic function is low-normal with, an EF between 50 - 55 %. Apical lateral LV wall motion is hypokinetic. The right ventricle is normal in size. The left atrial size is normal. The right atrial size is normal. There is mild aortic stenosis present. Peak/mean gradient across the Aortic Valve is 22.93mmHg / 12.48mmHg. Mild mitral annular calcification present. Mild mitral regurgitation is present. Mild tricuspid regurgitation present. There is no evidence of pulmonary hypertension. The right ventricular systolic pressure, as measured by Doppler, is 14.84mmHg. Trace/mild (physiologic) pulmonic regurgitation. The aortic root size is normal. Echo free space may represent effusion or a pericardial fat pad. CONCLUSIONS -------- 1. Morbid Obesity 2. Mild tricuspid regurgitation present. 3. There is no evidence of pulmonary hypertension. 4. The right ventricular systolic pressure, as measured by Doppler, is 14.84mmHg. 5. Trace/mild (physiologic) pulmonic regurgitation. 6. The aortic root size is normal. 7. Echo free space may represent effusion or a pericardial fat pad. 8. The left ventricular size is normal. 9. There is mild concentric left ventricular hypertrophy. 10. Overall left ventricular systolic function is low-normal with, an EF between 50 - 55 %. 11. Apical lateral LV wall motion is hypokinetic. 12. There is mild aortic stenosis present. 13. Peak/mean gradient across the Aortic Valve is 22.93mmHg / 12.48mmHg. 14. Mild mitral annular calcification present. 15. Mild mitral regurgitation is present. GLOVE STITCHER: Jenny Faye RDCS
[2017-03-05 11:47] LABS: Glucose,Whole Blood 151 mg/dL (75-99)
--- NOTE | 2017-03-05 14:20 | CDI ---
In responding to this query, please exercise your independent professional judgment. The [facility] Coding Staff and Clinical Documentation Specialists appreciate your assistance in clarifying documentation, maintaining compliance with coding guidelines, accurately documenting patients condition and capturing severity of illness. The fact that a question is asked does not imply that any particular answer is desired or expected. Communication forms are a method of clarifying documentation and are not made part of the Legal Health Record. Thank you in advance for your clarification. Last Revision, April 2015 Tommy Sotelo [address] [facility] [place] [address] Documentation Clarification Form Date: 03/05/2017 1:57:00 PM From: [facility] Admit Date: 03/03/2017 4:37:00 PM Patient Name: Duy Lyons Visit Number: [id number] Dr. Alan Butler/Amira Obrien NP Patient presents with a BUN/CR/GFR of: 24/1.67/41 History/Risk Factors: DM type 2, HTN, HLD, Hypothyroid, admitted with NSTEMI Clinical Indicators: Labs: see admitting above 03/05: 17/1.20/60 H&P and Progress note on 03/04: 'increased creatinine with possible CKD stage 3' Progress note on 03/05: 'elevated creatinine, poa, resolving' Treatment: IV fluids In order to capture the severity of condition, please clarify if the condition signifies: Acute renal failure Please specify (if known): Cortical, Medullary, or Tubular Necrosis? Acute on chronic renal failure Chronic kidney disease (CKD) and please stage Stage 2 GFR 60-89 Stage 3 GFR 30-59 Unable to determine Other, please specify Please document in your progress notes and discharge summary in order to capture severity of illness and risk of mortality. Include clinical findings that support your diagnosis. FYI: Press F11 to launch patient chart. ANSHU
[2017-03-05 16:38] LABS: Glucose,Whole Blood 107 mg/dL (75-99)
[2017-03-05] MEDS ORDERED: Acetaminophen-Codeine 300-30mg TAB PO PRN (16:47)
[2017-03-05] MEDS: ATORVASTATIN 40 MG TAB PO SCH (20:31)
[2017-03-05 21:19] LABS: Glucose,Whole Blood 111 mg/dL (75-99)
[2017-03-06 03:46] VITALS: RESP 16
[2017-03-06] MEDS: SODIUM CHLORIDE 0.9% 1,000 ML IV SCH (05:57)
[2017-03-06 06:15] LABS: Glucose,Whole Blood 116 mg/dL (75-99)
[2017-03-06] MEDS: LEVOTHYROXINE 100 MCG TAB PO SCH (06:55)
[2017-03-06 07:02] LABS: Basophils % (A) 0 %; CH 33.1; CHCM 35.2; Eosinophils # (A) 0.2 k/uL (0-0.7); Eosinophils % (A) 3 %; HCT 41.8 % (39.0-53.0); HDW 2.49; HGB 14.7 gm/dL (13.0-17.5); Luc # (Auto) 0.16; Luc % (Auto) 2; Lymphocytes # (A) 1.8 k/uL (1.0-4.8); Lymphocytes % (A) 21 %; MCH 33.2 pg (25.0-35.0); MCHC 35.1 g/dL (31.0-37.0); MCV 94.4 fL (80.0-100.0); Monocytes # (A) 0.8 k/uL (0-1.0); Monocytes % (A) 9 %; Neutrophils # (A) 5.5 k/uL (1.3-7.7); Neutrophils % (A) 65 %; RBC 4.43 m/uL (4.30-5.90); RDW 12.2 % (11.5-15.5); WBC 8.4 k/uL (3.8-10.6)
[2017-03-06 07:24] LABS: Anion Gap 9 mmol/L; Blood Urea Nitrogen 16 mg/dL (9-20); Calcium 9.1 mg/dL (8.4-10.2); Carbon Dioxide 23 mmol/L (22-30); Chloride 107 mmol/L (98-107); Glucose 111 mg/dL (74-99); Non-African American GFR(MDRD) >60 (>60 ml/min/1.73 sqM); Potassium 4.2 mmol/L (3.5-5.1); Sodium 139 mmol/L (137-145)
[2017-03-06 08:22] VITALS: TEMP 97.8
[2017-03-06] MEDS: amLODIPine 10 MG TAB PO SCH (08:23)
[2017-03-06] MEDS: LISINOPRIL 20 MG TAB PO SCH (08:23)
[2017-03-06] MEDS: CLOPIDOGREL 75 MG TAB PO SCH (08:23)
[2017-03-06] MEDS: ASPIRIN 81 MG PO SCH (08:23)
[2017-03-06] MEDS: METOPROLOL TARTRATE 12.5 MG TAB PO SCH (08:23)
[2017-03-06] MEDS: PANTOPRAZOLE 40 MG TABLET PO SCH (08:24)
--- NOTE | 2017-03-06 09:04 | US ---
EXAMINATION TYPE: US groin extremity RT DATE OF EXAM: 03/06/2017 COMPARISON: NONE CLINICAL HISTORY: r/o psuedoaneurysm. Right groin heart cath 2 days ago 4.3 x 1.4 x 2.5 cm pseudo within right groin that is predominantly thrombosed/ Small amount of flow visualized within pseudo at stalk/ To-Fro flow within stalk/ CFV flow wnl Grayscale, color Doppler, spectral Doppler imaging performed. IMPRESSION: Pseudoaneurysm is thrombosed however there is a tubular appearing area coursing towards this region which shows some persistent flow. No evident arteriovenous Doppler malformation. Suggest vascular surgery consult.
[2017-03-06] MEDS ORDERED: HEPARIN SODIUM,PORCINE 5,000 UNIT/ML 1 ML VIAL IV PRN (10:41)
[2017-03-06] MEDS: ALPRAZolam 0.5 MG TAB PO PRN (10:47)
--- NOTE | 2017-03-06 10:56 | P.PN ---
Subjective Principal diagnosis: NSTEMI This is a 71-year-old gentleman with history of diabetes, hypertension , hyperlipidemia, who presented to the hospital with a non-ST elevation myocardial infarction. He underwent angioplasty with stenting of the LAD. His post procedure course was complicated by hemostasis, requiring compression on several occasions. Patient did undergo an ultrasound of the right groin this morning which revealed evidence of a pseudoaneurysm which was thrombosed however there still was a remaining area showing some persistent flow. For this reason a consultation with Dr. Terrazas as been requested. Overall the patient feels well, denies any chest pain, no difficulty in breathing. Hemodynamically stable. Hemoglobin today 14.7, BUN 16, creatinine 1.1. Objective - Vital Signs Vital signs: Vital Signs Temp 97.8 F 03/06/17 08:21 Pulse 78 03/06/17 08:21 Resp 16 03/06/17 08:21 BP 130/75 03/06/17 08:21 Pulse Ox 92 L 03/06/17 08:21 Intake & Output 03/05/17 03/06/17 03/06/17 18:59 06:59 18:59 Intake Total 180 180 Output Total 400 1100 Balance -220 -1100 180 Weight 121.5 kg Intake: Oral 180 180 Output: Urine 400 1100 Other: Voiding Method Urinal Urinal # Voids 1 - Exam PHYSICAL EXAMINATION: HEENT: Head is atraumatic, normocephalic. Pupils equal, round. Neck is supple. There is no elevated jugular venous pressure. HEART EXAMINATION: Heart S1, S2 normal. No murmur or gallop heard. CHEST EXAMINATION: Lungs are clear to auscultation and precussion. No chest wall tenderness is noted on palpation or with deep breathing. ABDOMEN: Soft, nontender. Bowel sounds are heard. No organomegaly noted. Right groin, soft, significant area of ecchymosis, no evidence of any bruit or hematoma. EXTREMITIES: 2+ peripheral pulses with no evidence of peripheral edema and no calf tenderness noted. NEUROLOGIC patient is awake, alert and oriented -3. . - Labs CBC & Chem 7: 03/06/17 05:57 03/06/17 05:57 Labs: Abnormal Lab Results - Last 24 Hours (Table) 03/05/17 03/05/17 03/05/17 Range/Units 11:42 16:36 21:17 Glucose (74-99) mg/dL POC Glucose (mg/dL) 151 H 107 H 111 H (75-99) mg/dL 03/06/17 03/06/17 Range/Units 05:57 06:13 Glucose 111 H (74-99) mg/dL POC Glucose (mg/dL) 116 H (75-99) mg/dL Assessment and Plan (1) Presence of stent in LAD coronary artery Status: Acute (2) Diabetes Status: Acute (3) HTN (hypertension) Status: Acute (4) Hyperlipemia Status: Acute (5) Non-STEMI (non-ST elevated myocardial infarction) Status: Acute (6) Morbid obesity Status: Acute Plan: From cardiology's perspective, we will request Dr. Terrazas to see the patient regarding the pseudoaneurysm. Patient is to remain on bedrest until then. Further recommendations to follow. DNP note has been reviewed, I agree with a documented findings and plan of care. Patient was seen and examined.
[2017-03-06] MEDS ORDERED: HEPARIN SODIUM,PORCINE/D5W PMX 25,000 UNIT in DEXTROSE/WATER 1 500ML.BAG IV SCH (11:00)
--- NOTE | 2017-03-06 11:01 | P.PN ---
Subjective Principal diagnosis: This is a 71-year-old male seen and examined by Dr. Butler. The patient was admitted for a NSTEMI. He underwent cardiac catheterization with stent placement. Post cardiac catheterization there was difficulty achieving hemostasis. The patient developed a hematoma in the right groin. The patient had a fem-stop in place yesterday. It was noted that yesterday afternoon the patient asked to take a shower and a small hematoma was noted below the incision site. Pressure was held by nursing staff for 5 minutes. A doppler of the right groin was ordered and revealed: Pseudoaneurysm is thrombosed, however there is a tubular appearing area coursing towards this region which show some persistent flow. Vascular surgery was consulted to see the patient. He denies any chest pain or shortness of breath. He is tolerating his diet without nausea and vomiting. He states his appetite is fair. His laboratory values have been reviewed. He has been afebrile his vital signs have been stable. The patient is anxious to be discharged and frustrated about his condition. Objective - Vital Signs Vital signs: Vital Signs Temp 97.8 F 03/06/17 08:21 Pulse 78 03/06/17 08:21 Resp 16 03/06/17 08:21 BP 130/75 03/06/17 08:21 Pulse Ox 92 L 03/06/17 08:21 Intake & Output 03/05/17 03/06/17 03/06/17 18:59 06:59 18:59 Intake Total 180 180 Output Total 400 1100 Balance -220 -1100 180 Weight 121.5 kg Intake: Oral 180 180 Output: Urine 400 1100 Other: Voiding Method Urinal Urinal # Voids 1 - Exam GENERAL: Alert and oriented. Appears in no acute distress. Pleasant. RESPIRATORY: Lungs clear bilaterally. No use of accessory muscles. Patient maintaining oxygen saturation greater than 92% on room air. CARDIOVASCULAR: S1 and S2 noted. No murmurs auscultated. No JVD noted. EXTREMITIES: No edema noted. Palpable pedal pulses +2. ABDOMEN: No distention noted. Abdomen soft and round. Normal active bowel sounds auscultated 4 quadrants. No pain or tenderness noted upon palpation. SKIN: Large ecchymosis to right groin noted - Labs CBC & Chem 7: 03/06/17 05:57 03/06/17 05:57 Labs: Abnormal Lab Results - Last 24 Hours (Table) 03/05/17 03/05/17 03/05/17 Range/Units 11:42 16:36 21:17 Glucose (74-99) mg/dL POC Glucose (mg/dL) 151 H 107 H 111 H (75-99) mg/dL 03/06/17 03/06/17 Range/Units 05:57 06:13 Glucose 111 H (74-99) mg/dL POC Glucose (mg/dL) 116 H (75-99) mg/dL Assessment and Plan Plan: ASSESSMENT: NSTEMI, s/p cardiac catheterization with stent placement to the LAD Right groin hematoma, resolving, s/p cardiac catheterization and difficulty achieving hemostasis Elevated troponins, present on admission, related to NSTEMI History of diabetes mellitus, type II History of hyperlipidemia Essential hypertension Acute on chronic renal failure, baseline Cr. 1.2-1.4. Creatinine on admission 1.67 PLAN: -Vascular surgery consulted due to US of right groin results. Await recommendations and input. -Continue to monitor right groin cardiac catheterization site -Continue Plavix, beta blockers, aspirin, and statin per cardiology recommendations -GI prophylaxis: Protonix 40 mg daily -DVT prophylaxis: Receiving aspirin and Plavix. Heparin on hold due to right groin hematoma and difficulty achieving hemostasis -Monitor labs -Monitor vital signs and address as appropriate The above impression and plan of care have been discussed and directed by signing physician. Amira Obrien, nurse practitioner, acting as scribe for signing physician.
--- NOTE | 2017-03-06 14:04 | P.PN ---
Progress Note - Text This is an addendum to the cardiology progress note dictated earlier today. Consultation was requested with Dr. Terrazas who reviewed the patient's ultrasound and felt that the pseudoaneurysm was thrombosed with very minimal if any flow. His recommendation was to discharge the patient home. He will see the patient in follow-up in the office on at noon, repeat ultrasound will be performed at that time. Therefore patient may be able to be discharged home from our perspective and a follow-up appointment will be made with Dr. Beth in the office 2 weeks following. DNP note has been reviewed, I agree with a documented findings and plan of care. Patient was seen and examined.
--- NOTE | 2017-03-06 14:12 | P.DS ---
Providers Date of admission: 03/03/17 16:37 Expected date of discharge: 03/06/17 Attending physician: Alan Butler Consults: 03/03/17 16:35 Consult Physician Urgent Consulting Provider: [facility] Consult Reason/Comments: Non-STEMI Do you want consulting provider notified?: Yes 03/04/17 12:07 Consult Physician Routine Consulting Provider: [facility] Consult Reason/Comments: Post Interventional patient Do you want consulting provider notified?: Already Contacted 03/06/17 10:35 Consult Physician Stat Consulting Provider: Hernandez Terrazas Consult Reason/Comments: right groin psuedoaneurysm Do you want consulting provider notified?: Yes Primary care physician: Alan Butler [facility] Course: This is a 71 year old male who presented to the emergency room with chest pain on 03-03-17. The chest pain was in the middle of the patients chest and radiated to his back. The pain increased with exertion. His troponins were elevated in the ER. He was admitted with a NSTEMI. Cardiology was consulted. The patient underwent a cardiac catheterization on 03/04/17. A stent was placed in the mid LAD which was found to be 95% occluded. Post cardiac catheterization there was difficulty achieving hemostasis. The patient developed a hematoma in the right groin. The patient had a fem-stop in place yesterday. It was noted that yesterday afternoon the patient asked to take a shower and a small hematoma was noted below the incision site. Pressure was held by nursing staff for 5 minutes. A doppler of the right groin was ordered and revealed: Pseudoaneurysm is thrombosed, however there is a tubular appearing area coursing towards this region which show some persistent flow. Vascular surgery was consulted to see the patient. Dr Silver, vascular surgery, saw the patient today and stated he was okay to be discharged from his standpoint and to follow up with him in the office this week. Lexi Fried NP with cardiology stated patient is cleared to be discharged from their standpoint and to follow up with Dr. Beth in two weeks. The patient is medically cleared to be discharged from a medical standpoint. He is to follow up with Dr Butler this week as well. DISCHARGE DIAGNOSIS: NSTEMI, s/p cardiac catheterization with stent placement to the LAD Right groin hematoma, resolving, s/p cardiac catheterization and difficulty achieving hemostasis Elevated troponins, present on admission, related to NSTEMI History of diabetes mellitus, type II History of hyperlipidemia Essential hypertension Acute on chronic renal failure, baseline Cr. 1.2-1.4. Creatinine on admission 1.67 The above impression and plan of care have been discussed and directed by signing physician. Amira Obrien, nurse practitioner, acting as scribe for signing physician. Patient Condition at Discharge: Stable Plan - Discharge Summary New Discharge Prescriptions: New amLODIPine [Norvasc] 10 mg PO DAILY #30 tab Atorvastatin [Lipitor] 40 mg PO HS #30 tab Metoprolol Tartrate [Lopressor] 12.5 mg PO BID #60 tab Aspirin [Adult Low Dose Aspirin EC] 81 mg PO DAILY #30 tablet. Continue Levothyroxine Sodium [Synthroid] 200 mcg PO DAILY Clopidogrel [Plavix] 75 mg PO DAILY #90 tablet Discontinued amLODIPine BESYLATE/BENAZEPRIL [Amlodipine-Benazepril 10-20 mg] 1 tab PO DAILY Atorvastatin Calcium [Lipitor] 10 mg PO DAILY #90 tab Discharge Medication List Levothyroxine Sodium [Synthroid] 200 mcg PO DAILY 06/23/14 [History] Clopidogrel [Plavix] 75 mg PO DAILY #90 tablet 03/05/15 [Rx] Aspirin [Adult Low Dose Aspirin EC] 81 mg PO DAILY #30 tablet. 03/06/17 [Rx] Atorvastatin [Lipitor] 40 mg PO HS #30 tab 03/06/17 [Rx] Metoprolol Tartrate [Lopressor] 12.5 mg PO BID #60 tab 03/06/17 [Rx] amLODIPine [Norvasc] 10 mg PO DAILY #30 tab 03/06/17 [Rx] Follow up Appointment(s)/Referral(s): Alan Butler DO [Primary Care Provider] - 1-2 days Hernandez Terrazas MD [STAFF PHYSICIAN] - 03/08/17 12:30 pm Tu Beth MD [STAFF PHYSICIAN] - 03/22/17 11:00 am Patient Instructions/Handouts: *Surgery [facility] - After Heart Catheterization - Medical Registrar Instructions Activity/Diet/Wound Care/Special Instructions: Patient to have US of the groin with Dr. Navarro in his office at his follow up visit Discharge Disposition: HOME SELF-CARE
[2017-03-06 14:13] VITALS: BP 123/77; PULSE 66
[2017-03-06 15:54] LABS: Glucose,Whole Blood 123 mg/dL (75-99)
--- NOTE | 2017-03-06 18:18 | CONS ---
DATE OF CONSULTATION: 03/06/2017 This is a 71-year-old gentleman. I was consulted for pseudoaneurysm of the right common femoral artery post heart catheterization and coronary artery stent placement on Sunday. Patient developed some ecchymosis and ultrasound showed a pseudoaneurysm. I have reviewed the ultrasound with Dr. Sammy Carrero. The aneurysm has thrombosed. There is a trickle of flow. At this point, patient does not ( ) surgical intervention ; has to be watched very closely. MEDICAL HISTORY: 1. History of borderline diabetes. 2. Hypertension. 3. Post coronary artery stent. PERSONAL HISTORY: Non-smoker. SURGICAL HISTORY: Patient had thyroid surgery and gallbladder surgery in the past. PHYSICAL EXAMINATION: Patient was seen in his room, lying comfortably in bed. Neck is supple. No bruit appreciated. Chest is clear on auscultation. First and second sounds are normal. Abdomen is soft, nontender. Patient has inguinal masses noted in the right groin area. Femoral pulses are palpable. Posterior tibial pulses palpable. IMPRESSION: Pseudoaneurysm, thrombosed, post heart catheterization. PLAN: The patient is going home today and is advised to do no heavy lifting. Ice pack in the right groin. Will see him on . We will repeat the ultrasound. Discussed with Dr. Tu Beth, We all agreed. MMODL / IJN: [id number] / ANSHU
== END 2017-03-06 16:00 | disposition home or self-care (01) | DRG 247 ==
LOC: EC 15:19 → 6SEL 16:37
PROVIDERS: ADMIT Family Medicine; ATTEND Family Medicine
PROC: B2111ZZ Fluoroscopy of Multiple Coronary Arteries using Low Osmolar Contrast (ICD-10-PCS; 2017-03-04)
PROC: B2151ZZ Fluoroscopy of Left Heart using Low Osmolar Contrast (ICD-10-PCS; 2017-03-04)
PROC: 027034Z Dilation of Coronary Artery, One Artery with Drug-eluting Intraluminal Device, Percutaneous Approach (ICD-10-PCS; principal; 2017-03-04 11:00)
PROC: 4A023N7 Measurement of Cardiac Sampling and Pressure, Left Heart, Percutaneous Approach (ICD-10-PCS; 2017-03-04 11:00)
DX: I21.4 Non-ST elevation (NSTEMI) myocardial infarction (principal); N17.9 Acute kidney failure, unspecified; E11.22 Type 2 diabetes mellitus with diabetic chronic kidney disease; I45.10 Unspecified right bundle-branch block; E66.01 Morbid (severe) obesity due to excess calories; I97.630 Postprocedural hematoma of a circulatory system organ or structure following a cardiac catheterization; I12.9 Hypertensive chronic kidney disease with stage 1 through stage 4 chronic kidney disease, or unspecified chronic kidney disease; E78.5 Hyperlipidemia, unspecified; N18.3 Chronic kidney disease, stage 3 (moderate); I25.2 Old myocardial infarction; M54.9 Dorsalgia, unspecified; R11.0 Nausea; R55 Syncope and collapse; E89.0 Postprocedural hypothyroidism; N40.0 Benign prostatic hyperplasia without lower urinary tract symptoms; Z79.899 Other long term (current) drug therapy; Z79.02 Long term (current) use of antithrombotics/antiplatelets; Z82.49 Family history of ischemic heart disease and other diseases of the circulatory system; Z90.49 Acquired absence of other specified parts of digestive tract; Z86.73 Personal history of transient ischemic attack (TIA), and cerebral infarction without residual deficits; Z83.79 Family history of other diseases of the digestive system; Z91.81 History of falling; Z87.820 Personal history of traumatic brain injury; Z87.2 Personal history of diseases of the skin and subcutaneous tissue; Z87.19 Personal history of other diseases of the digestive system; Z87.39 Personal history of other diseases of the musculoskeletal system and connective tissue; Y83.8 Other surgical procedures as the cause of abnormal reaction of the patient, or of later complication, without mention of misadventure at the time of the procedure; Y71.3 Surgical instruments, materials and cardiovascular devices (including sutures) associated with adverse incidents
CPT/HCPCS: 36415; 71020; 80048; 80053; 80061; 81003; 82550; 82553; 83735; 84484; 85025; 85610; 85730; 93005; 93306; 93458; 93975; 96361; 96374; 99291

== ENCOUNTER 2017-06-28 05:53 | Day surgery (SDC) | payer MEDICARE ==
[2017-06-27 23:23] VITALS: BMI 38.9
[~2017-06-28 05:53] MED LIST: ALPRAZolam 0.5 MG TAB PO PRN
[2017-06-28] MEDS ORDERED: ASPIRIN 325 MG TAB PO ONE (06:00)
[2017-06-28] MEDS ORDERED: ALPRAZolam 0.25 MG TAB PO PRN (06:00)
[2017-06-28] MEDS ORDERED: SODIUM CHLORIDE 0.9% 1,000 ML in EMPTY BAG 1 BAG IV ONE (06:00)
[2017-06-28] MEDS ORDERED: SODIUM CHLORIDE 0.9% 1,000 ML IV SCH ×2 (06:00→08:30)
[2017-06-28] MEDS ORDERED: LIDOCAINE 2% INJ 20 MG/ML IV ONE (07:37)
[2017-06-28] MEDS ORDERED: fentaNYL (PF) 50 MCG/ML 2 ML AMP IV ONE (07:37)
[2017-06-28] MEDS: VERAPAMIL SYRINGE (5 MG/10 ML) INTRAARTER ONE ×2 (07:41→08:08)
[2017-06-28] MEDS ORDERED: HEPARIN SODIUM 1,000 UN/ML (10ML VL) IV ONE (07:50)
[2017-06-28] MEDS ORDERED: ADENOSINE 180 MG in SODIUM CHLORIDE 0.9% 30 ML IVP ONE (07:59)
[2017-06-28] MEDS ORDERED: IODIXANOL 320 MG/ML 100 ML INTRAARTER ONE (08:12)
[2017-06-28] MEDS ORDERED: RX INFO: IV CONTRAST WAS GIVEN 1 EACH MISC MISCELLANE PRN (08:26)
[2017-06-28] MEDS ORDERED: CLOPIDOGREL 75 MG TAB PO SCH (09:00)
[2017-06-28] MEDS ORDERED: NON-FORMULARY DRUG (Levothyroxine Sodium [Synthroid] 200 MCG) PO SCH (09:00)
[2017-06-28] MEDS ORDERED: amLODIPine 10 MG TAB PO SCH (09:00)
[2017-06-28] MEDS ORDERED: NON-FORMULARY DRUG (Aspirin [Adult Low Dose Aspirin Ec] 81 MG) PO SCH (09:00)
[2017-06-28] MEDS ORDERED: METOPROLOL TARTRATE 12.5 MG TAB PO SCH (09:00)
--- NOTE | 2017-06-28 09:45 | LTR ---
DATE OF SERVICE: 06/28/2017 RE: Duy Lyons Dear Dr. Butler; I had the pleasure to perform cardiac catheterization on Mr. Lyons at [facility] on June 28, 2017 and a full copy of the procedure note will be forwarded to you. In brief, he was found to have a moderate disease proximal to the stented segment in the LAD and because of that and his symptoms, he underwent fractional flow reserve measurement that revealed benign hemodynamic significant lesion and based on those findings, I have recommended to continue medical therapy with aggressive risk modifications being initiated. Thank you again for allowing me to participate in your patient's care. Please feel free to call for any questions. Sincerely yours, MD CINTIA ManzanaresL / IGORN: [id number] /
--- NOTE | 2017-06-28 09:45 | CC ---
CARDIAC CATHETERIZATION REPORT Mr. Lyons is a 71-year-old male with known history of hypertension, hyperlipidemia, diabetes mellitus, who has underwent stenting of his proximal LAD in February of this year. He has been complaining of episode of chest discomfort, at times exertional and he had a stress test recently when he had chest discomfort on the treadmill. In view of that, recommendation made regarding cardiac catheterization. The procedure, risks and complication were discussed with the patient who is in full understanding and agreement. PROCEDURE: Patient was brought to the [employer] in a fasting semi-sedated state after receiving fentanyl and Benadryl and achieving moderate conscious sedated state. Using Xylocaine anesthesia and Seldinger technique, a 6-Swedish sheath was introduced in the right radial artery. Selective right and left angiography performed using 5-Swedish 3.5 bend right and left Ángel catheter. Multiple views of the coronary artery including hemiaxial views obtained. Following that, a 6-Swedish 3.5 bend left Ángel catheter introduced into the system and after cannulating the left main, a Doppler flow wire was introduced in the LAD, positioned distally. Subsequently, IFR and FFR were measured after an infusion of adenosine per protocol intravenously. Following that, catheter removed and a 5-Swedish tight pigtail catheter was introduced into the left ventricle and pressures were calculated. Following that, catheter and sheath were removed. Hemostasis was obtained with deployment of a TR band. There was no immediate complication. Patient is returned to his room in stable condition. Of note, patient received 5000 units of intravenous heparin as well as intra-arterial verapamil. FINDINGS: 1. LEFT MAIN: This is a short-size vessel bifurcating into left circumflex, left anterior descending artery, left main coronary artery is without any evidence of high-grade stenosis. 2. LEFT ANTERIOR DESCENDING ARTERY: This is a large-sized vessel reaching toward the apex with a wraparound apex segment, giving rise to a diagonal branch of moderate caliber. The left anterior descending artery stented segment is patent without any evidence of restenosis. Proximal to the stent, there is an eccentric 50% plaque. The rest of the vessel has no high-grade stenosis. 3. LEFT CIRCUMFLEX: This is a nondominant vessel giving rise to a large obtuse marginal branch. The left circumflex as well as branches have no evidence of obstructive disease. 4. RIGHT CORONARY ARTERY: This is a large dominant vessel bifurcating distally into PDA, posterolateral segment and branches. The right coronary artery and its branches have no evidence of obstructive coronary disease. 5. Fractional flow reserve measurement of the LAD was 84% and IFR was 93%. 6. LEFT VENTRICULOGRAM: Left ventriculogram was not performed. 7. HEMODYNAMICS: There was no significant gradient across the aortic valve. The left ventricle end-diastolic pressure was 8 to 10 mmHg. CONCLUSION: Moderate disease proximal to the stented segment in the proximal left anterior descending artery with a non-hemodynamic significant IFR and FFR. RECOMMENDATION: In view of the finding., I do not see any evidence of significant obstructive disease. I would recommend medical therapy. Those findings and recommendation were discussed with the patient and his family who are in full understanding and agreement. DURATION OF THE PROCEDURE: 33 minutes. ELMA / IGORN: [id number] / ANSHU
[2017-06-28 16:27] VITALS: BP 128/72; PULSE 70; RESP 18; TEMP 98.1
[2017-06-28] MEDS ORDERED: ATORVASTATIN 40 MG TAB PO SCH (21:00)
== END 2017-06-28 13:22 | disposition home or self-care (01) ==
LOC: CATHCVL 05:53
PROVIDERS: ATTEND Internal Medicine Interventional Cardiology
DX: I25.10 Atherosclerotic heart disease of native coronary artery without angina pectoris (principal); R07.89 Other chest pain; R94.39 Abnormal result of other cardiovascular function study; E78.00 Pure hypercholesterolemia, unspecified; Z95.5 Presence of coronary angioplasty implant and graft; I10 Essential (primary) hypertension; E11.9 Type 2 diabetes mellitus without complications; E78.2 Mixed hyperlipidemia; Z82.49 Family history of ischemic heart disease and other diseases of the circulatory system; I25.2 Old myocardial infarction; Z79.02 Long term (current) use of antithrombotics/antiplatelets; Z79.82 Long term (current) use of aspirin; Z79.51 Long term (current) use of inhaled steroids; Z79.899 Other long term (current) drug therapy
CPT/HCPCS: 93458; C1887; C1894; C1769; J2001; Q9967; J3010; J1644; J0153

== ENCOUNTER → 2018-12-17 | Outpatient (CLI) | payer MEDICARE | END | disposition home or self-care (01) | LOC: LABWHC1 08:14 | PROVIDERS: ATTEND Nurse Practitioner Adult Health | DX: E78.2 Mixed hyperlipidemia (principal) | CPT/HCPCS: 36415; 80061; 84450; 84460 ==

== ENCOUNTER → 2020-12-28 | Outpatient (CLI) | payer MEDICARE ==
[2020-12-28 13:07] LABS: African American GFR (CKD) 62.3 (60.0-200.0); Albumin 4.2 g/dL (3.80-4.90); Anion Gap 6.8 mmol/L (4.00-12.00); BUN/Creat Ratio 14.62 Ratio (12.00-20.00); Carbon Dioxide 25.2 mmol/L (21.6-31.8); Chol/HDL Ratio 3.68; Globulin 2.1 g/dL (1.6-3.3); Non-African American GFR(CKD) 53.8 (60.0-200.0); Potassium 4.8 mmol/L (3.5-5.5); Total Bilirubin 0.7 mg/dL (0.2-1.2); Total Protein 6.3 g/dL (6.2-8.2)
== END | disposition home or self-care (01) ==
LOC: LABWHC1 07:57
PROVIDERS: ATTEND Internal Medicine Interventional Cardiology
DX: E78.2 Mixed hyperlipidemia (principal)
CPT/HCPCS: 36415; 80053; 80061

== ENCOUNTER 2021-04-01 09:16 | Day surgery (SDC) | payer MEDICARE ==
[2021-03-31 13:36] VITALS: BMI 35.9
[~2021-04-01 09:16] MED LIST changes: -ALPRAZolam 0.5 MG TAB PO PRN; +LACTATED RINGERS 1,000 ML IV SCH
[2021-04-01 10:33] VITALS: RESP 16; TEMP 98.4
[2021-04-01 10:56] LABS: Glucose,Whole Blood 133 mg/dL (75-99)
[2021-04-01] MEDS ORDERED: PROPOFOL 10 MG/ML 20 ML VIAL IV ONE (11:03)
--- NOTE | 2021-04-01 11:32 | P.HPIHPCON ---
History of Present Illness H&P Date: 04/01/21 75-year-old male presents today for screening colonoscopy. He denies any blood in his stool. He states he has had multiple colonoscopies in the past and has never had polyps. Consent for Procedure: I have explained the operation/procedure to the patient, including the risks, benefits, side effects, alternative therapies (including not receiving the proposed treatment or service), the likelihood of the patient achieving his/her goals, and potential recuperation problems for the procedure/sedation/analgesia, as well as any blood products, if indicated. I also explained to the patient the risks, benefits and side effects of the alternatives, as well as the risks rela mario to not receiving the proposed procedure, care, treatment, or services. - Review of Systems All systems: negative Past Medical History Past Medical History: Diabetes Mellitus, Hypertension, Musculoskeletal Disorder, Prostate Disorder, Thyroid Disorder Additional Past Medical History / Comment(s): covid May 2020,CONCUSSION 2014; PSORIASES, HEMORRHOIDS, LT SHOULDER IMPINGMENT SYNDROME,THRYOID NODLUE ;BPH,SCIATICA History of Any Multi-Drug Resistant Organisms: MRSA Date of last positivie culture/infection: 2014 MDRO Source:: Buttocks Past Surgical History: Cholecystectomy, Heart Catheterization With Stent, Hernia Repair Additional Past Surgical History / Comment(s): thyroidectomy, RK LASIK, COLONOSCOPY, LT INGUINAL HERNIA, UMBILICAL HERNIA,lt cataract Past Anesthesia/Blood Transfusion Reactions: No Reported Reaction Date of Last Stent Placement:: 2016 Smoking Status: Never smoker - Past Family History Mother Family Medical History: Liver Disease Additional Family Medical History / Comment(s): MOM WHEN PT WAS 9 YEARS OLD FROM CIRRHOSIS Father Family Medical History: Myocardial Infarction ([place]) Additional Family Medical History / Comment(s): AGE 69 FROM [place] Medications and Allergies Home Medications Medication Instructions Recorded Confirmed Type Levothyroxine Sodium [Synthroid] 200 mcg PO QAM 06/23/14 03/31/21 History Aspirin [Adult Low Dose Aspirin EC] 81 mg PO DAILY #30 tablet. 03/06/17 03/31/21 Rx Atorvastatin [Lipitor] 40 mg PO HS #30 tab 03/06/17 03/31/21 Rx Metoprolol Tartrate [Lopressor] 12.5 mg PO BID #60 tab 03/06/17 03/31/21 Rx Ezetimibe [Zetia] 10 mg PO DAILY 10/07/21 10/07/21 History Mirabegron [Myrbetriq] 50 mg PO DAILY 03/31/21 03/31/21 History Sertraline HCl [Zoloft] 25 mg PO QAM 03/31/21 03/31/21 History Tamsulosin HCl [Flomax] 0.4 mg PO HS 03/31/21 03/31/21 History amLODIPine [Norvasc] 10 mg PO QAM 03/31/21 03/31/21 History metFORMIN HCL 500 mg PO BID 03/31/21 03/31/21 History Allergies Allergy/AdvReac Type Severity Reaction Status Date / Time No Known Allergies Allergy Verified 03/31/21 13:08 Surgical - Exam Osteopathic Statement: *. No significant issues noted on an osteopathic structural exam other than those noted in the History and Physical/Consult. Vital Signs Temp Pulse Resp BP Pulse Ox 98.4 F 79 16 131/79 94 L 04/01/21 10:27 04/01/21 10:27 04/01/21 10:27 04/01/21 10:27 04/01/21 10:27 - General no distress - Eyes normal ocular movement - ENT normal mucosa - Neck trachea midline - Abdomen Abdomen: soft, non tender Results - Labs Abnormal Lab Results - Last 24 Hours (Table) 04/01/21 Range/Units 10:52 POC Glucose (mg/dL) 133 H (75-99) mg/dL Assessment and Plan Plan: 75-year-old male presents for scanning colonoscopy. Risks, benefits and alternatives were provided to the patient. Further recommendations after procedure.
--- NOTE | 2021-04-01 11:33 | P.PCN ---
Date of Procedure: 04/01/21 Preoperative Diagnosis: Screening Postoperative Diagnosis: Diverticulosis Procedure(s) Performed: Colonoscopy Anesthesia: MAC Surgeon: Fan Monte Pathology: none sent Condition: stable Disposition: same day Indications for Procedure: 75-year-old male presents for screening colonoscopy. Risks, benefits and alternatives were provided to the patient. He did provide consent prior to attending the endoscopy suite. Operative Findings: Diverticulosis Description of Procedure: The patient was brought to the endoscopy suite and placed in left lateral decubitus position and adequate sedation was achieved using conscious sedation. A digital rectal exam was performed and internal hemorrhoids palpated. An endoscope was then placed in the rectum and advanced to the cecum as identified by landmarks including the appendiceal orifice and the ileocecal valve. The prep was good. The colonoscope was then slowly withdrawn, examining for any mucosal malleus. The cecum, ascending, transverse, descending and sigmoid colon were visualized adequately. No large neoplastic lesion was noted. There were no obvious polyps noted throughout the. Moderate amount of diverticulosis was noted scattered throughout the sigmoid colon. Retroflexion was performed in the rectum and internal hemorrhoids were visible. Excess air was removed, the colonoscope withdrawn and the procedure terminated. The patient was then transferred to the recovery unit in stable condition. Repeat colonoscopy should be performed based on symptoms due to the patient's age.
[2021-04-01 11:57] VITALS: BP 114/71; PULSE 63
== END 2021-04-01 12:15 | disposition home or self-care (01) ==
LOC: ORWHC2ENDO 09:16
PROVIDERS: ATTEND Surgery
DX: Z12.11 Encounter for screening for malignant neoplasm of colon (principal); K57.90 Diverticulosis of intestine, part unspecified, without perforation or abscess without bleeding; I10 Essential (primary) hypertension; E07.9 Disorder of thyroid, unspecified; I25.2 Old myocardial infarction; E78.5 Hyperlipidemia, unspecified; I25.10 Atherosclerotic heart disease of native coronary artery without angina pectoris; F41.9 Anxiety disorder, unspecified; F32.9 Major depressive disorder, single episode, unspecified; E11.9 Type 2 diabetes mellitus without complications; Z79.84 Long term (current) use of oral hypoglycemic drugs; Z79.899 Other long term (current) drug therapy; Z79.890 Hormone replacement therapy; Z95.818 Presence of other cardiac implants and grafts
CPT/HCPCS: G0121; J2704

== ENCOUNTER → 2021-11-17 | Outpatient (CLI) | payer MEDICARE ==
--- NOTE | 2021-11-17 14:42 | XR ---
KUB HISTORY: Right flank pain Frontal KUB submitted on 3 images Correlation to prior abdomen dated 08/31/2012 Probable vascular calcifications are noted within the pelvis. Surgical clips present in the right upp er quadrant. No evident bowel obstruction or pneumoperitoneum. Degenerative disc changes are present in the visualized spine. Exam somewhat limited by patient body habitus. IMPRESSION: Exam is somewhat limited technically. Indeterminate pelvic calcifications, difficult to e xclude distal ureteral calcification.
[2021-11-17 23:03] LABS: HCT 44.8 % (39.6-50.0); HGB 14.8 g/dL (13.0-17.0); MCH 33.3 pg (27.0-32.0); MCV 100.9 fL (80.0-97.0); Mean Platelet Volume 10.2 fL (9.5-12.2); NRBC Per 100 WBC 0 /100 WBCS (0.0-0.0); Platelet Count 250 X 10*3/uL (140-440); RBC 4.44 X 10*6/uL (4.40-5.60); RDW 12.1 % (11.5-14.5); WBC 7.04 X 10*3/uL (4.50-10.00)
[2021-11-17 23:51] LABS: ALT 29 U/L (10-49); AST 22 U/L (14-35); African American GFR (CKD) 59.5 (60.0-200.0); Albumin 4.5 g/dL (3.8-4.9); Albumin/Globulin Ratio 2.02 (1.60-3.17); Alkaline Phosphatase 64 U/L (41-126); BUN/Creat Ratio 14.52 Ratio (12.00-20.00); Blood Urea Nitrogen 19.6 mg/dL (9.0-27.0); Calcium 9.6 mg/dL (8.7-10.3); Carbon Dioxide 23.6 mmol/L (20.0-27.5); Chloride 102 mmol/L (96-109); Chol/HDL Ratio 3.06 Ratio; Globulin 2.2 g/dL (1.6-3.3); Glucose 153 mg/dL (70-110); LDL Cholesterol,Calculated 43.7 mg/dL (0.0-131.0); Non-African American GFR(CKD) 51.4 (60.0-200.0); Potassium 4.9 mmol/L (3.5-5.5); Sodium 135 mmol/L (135-145); Total Protein 6.7 g/dL (6.2-8.2)
== END | disposition home or self-care (01) ==
LOC: LABWHC1 09:03
PROVIDERS: ATTEND Nurse Practitioner Adult Health
DX: Z00.00 Encounter for general adult medical examination without abnormal findings (principal); I10 Essential (primary) hypertension; R10.9 Unspecified abdominal pain; E03.9 Hypothyroidism, unspecified; E11.9 Type 2 diabetes mellitus without complications; E78.2 Mixed hyperlipidemia
CPT/HCPCS: 36415; 74018; 80053; 80061; 83036; 84153; 84439; 84443; 85027

== ENCOUNTER → 2022-04-11 | Outpatient (CLI) | payer MEDICARE ==
--- NOTE | 2022-04-11 13:35 | XR ---
EXAMINATION TYPE: XR abdomen 2V DATE OF EXAM: 04/11/2022 COMPARISON: NONE HISTORY: Constipation TECHNIQUE: Two view abdominal series FINDINGS: The osseous structures are intact. The bowel gas pattern is nonspecific. No evidence of obstruction. There is significant retained fecal debris throughout colon. Surgical clips. Hypertrophic and degene rative changes spine. No definite suspicious calcifications. Arthropathy of the hips. IMPRESSION: 1. Correlate for constipation
== END | disposition home or self-care (01) ==
LOC: RADXRMAIN 12:41
PROVIDERS: ATTEND Nurse Practitioner Family
DX: K59.00 Constipation, unspecified (principal)
CPT/HCPCS: 74019

== ENCOUNTER → 2022-11-14 | Outpatient (CLI) | payer MEDICARE ==
--- NOTE | 2022-11-15 00:39 | MR ---
EXAMINATION TYPE: MR brain and iac wo/w con DATE OF EXAM: 11/14/2022 COMPARISON: None HISTORY: Bilateral hearing loss, worse on right. Trouble with balance. CONTRAST: Performed utilizing 11.5 mL intravenous Gadavist gadolinium contrast. TECHNIQUE: Multiplanar, multiecho imaging on a 3.0 Kayla magnet is performed through the brain. Atte ntion is paid to the internal auditory canals with thin section imaging. Postcontrast imaging is per formed through the internal auditory canals. FINDINGS:Craniovertebral junction is normal. The pituitary is normal. Optic chiasm as visualized ap pear normal. Cerebellar pontine angles are normal. Diffusion-weighted imaging is performed. No suspicious hyperintensity is present to suggest an acute intracranial infarct or acute ischemic area. Signal within the brain has scattered areas of hyperintensity which are non-specific but could be rel ated to microvascular ischemic changes.. Some mild increased signal may be within the brainstem. Ther e is mild prominence of ventricles and sulci compatible with atrophy. Thin section imaging is performed through the internal auditory canals and cerebellar pontine angles. No cerebellar pontine angle masses are evident. The internal auditory canals appear normal without expansion or erosion. Small amount of fluid is within the inferior mastoid air cells. Remaining paranasal sinuses and some mild without air-fluid levels. Postcontrast imaging was performed. No suspicious enhancement is evident within the internal audito ry canals or the included portions of the brain. IMPRESSIONS: 1. Scattered deep white matter hyperintensities on T2 weighted sequences in amount. Chronic white mat ter ischemic change should be considered. 2. No suspicious abnormality of the internal auditory canals. 3. Mild fluid within the mastoid air cells. Correlate for mild bilateral mastoiditis.
== END | disposition home or self-care (01) ==
LOC: RADMRIMAIN 17:21
PROVIDERS: ATTEND Otolaryngology
DX: H91.93 Unspecified hearing loss, bilateral (principal); R90.82 White matter disease, unspecified; I67.82 Cerebral ischemia
CPT/HCPCS: 70553; A9585

== ENCOUNTER 2023-12-18 23:06 | Inpatient (IN) | payer OTHER, MEDICARE ==
--- NOTE | 2023-12-18 23:31 | ED ---
Extremity Problem HPI - General Chief complaint: Extremity Injury, Lower Stated complaint: Left Foot Infection Time Seen by Provider: 12/18/23 23:17 Source: patient, RN notes reviewed, old records reviewed Mode of arrival: wheelchair Limitations: no limitations - History of Present Illness Initial comments: This is a 78-year-old male to the ER for evaluation today. Patient presents today for evaluation regards to severe left foot pain swelling redness. Pains been going on for few days now getting progressively worse with redness swelling to the ankle. No trauma. No fevers. Patient does have diabetes MD Complaint: extremity pain, extremity swelling, cold extremity -: days(s) Location: left, toe, other (foot pain) -: Yes myalgia, Yes arthralgia Radiation: proximal Severity scale (1-10): 10 Quality: burning, stabbing Consistency: constant Improves with: nothing Worsens with: weight bearing Associated Symptoms: denies other symptoms - Related Data Home Medications Medication Instructions Recorded Confirmed Ezetimibe [Zetia] 10 mg PO DAILY@0803/31/21 12/19/23 Tamsulosin HCl [Flomax] 0.4 mg PO HS@209903/31/21 12/19/23 metFORMIN HCL 500 mg PO BID@0800,209903/31/21 12/19/23 Ascorbic Acid [Vitamin C] 500 mg PO DAILY@89912/19/23 12/19/23 Aspirin [Adult Low Dose Aspirin EC] 81 mg PO HS@209912/19/23 12/19/23 Atorvastatin [Lipitor] 40 mg PO HS@209912/19/23 12/19/23 Benazepril [Lotensin] 10 mg PO DAILY@79912/19/23 12/19/23 Cinnamon Bark [Cinnamon] 500 mg PO DAILY@89912/19/23 12/19/23 Cyanocobalamin [Vitamin B-12] 500 mcg PO DAILY@89912/19/23 12/19/23 Esomeprazole Magnesium [NexIUM] 20 mg PO DAILY@79912/19/23 12/19/23 L.acidoph,Paracasei, B.lactis 1 cap PO DAILY@89912/19/23 12/19/23 [Probiotic] Levothyroxine Sodium [Synthroid] 175 mcg PO DAILY@79912/19/23 12/19/23 Loratadine [Claritin] 10 mg PO HS@209912/19/23 12/19/23 Metoprolol Tartrate [Lopressor] 12.5 mg PO HS@209912/19/23 12/19/23 Multivitamins, Thera [Multivitamin 1 tab PO DAILY@0900 12/19/23 12/19/23 (formulary)] Sertraline [Zoloft] 50 mg PO DAILY@0812/19/23 12/19/23 Trospium Chloride 20 mg PO BID@0800,209912/19/23 12/19/23 Vitamin E Mixed [Vitamin E] 1,000 unit PO DAILY@0912/19/23 12/19/23 Zinc Gluconate [Zinc] 50 mg PO DAILY@0912/19/23 12/19/23 Previous Rx's Medication Instructions Recorded Amoxic-Pot Clav 875-125Mg 1 tab PO BID 10 Days #20 tab 12/25/23 [Augmentin 875-125] Sennosides-Docusate Sodium 2 each PO BID tab 12/25/23 [Senokot-S] polyethylene glycoL 3350 [Miralax] 17 gm PO DAILY packet 12/25/23 traMADol HCl [Ultram] 50 mg PO Q8H PRN #9 tab 12/25/23 Allergies Allergy/AdvReac Type Severity Reaction Status Date / Time No Known Allergies Allergy Verified 12/23/23 18:43 Review of Systems ROS Statement: Those systems with pertinent positive or pertinent negative responses have been documented in the HPI. ROS Other: All systems not noted in ROS Statement are negative. Past Medical History Past Medical History: Diabetes Mellitus, Hypertension, Musculoskeletal Disorder, Prostate Disorder, Thyroid Disorder Additional Past Medical History / Comment(s): covid May 2020,CONCUSSION 2014; PSORIASES, HEMORRHOIDS, LT SHOULDER IMPINGMENT SYNDROME,THRYOID NODLUE ;BPH,SCIATICA History of Any Multi-Drug Resistant Organisms: MRSA Date of last positivie culture/infection: 2014 MDRO Source:: Buttocks Past Surgical History: Cholecystectomy, Heart Catheterization With Stent, Hernia Repair Additional Past Surgical History / Comment(s): thyroidectomy, RK LASIK, COLONOSCOPY, LT INGUINAL HERNIA, UMBILICAL HERNIA,lt cataract Past Anesthesia/Blood Transfusion Reactions: No Reported Reaction Date of Last Stent Placement:: 2016 Past Psychological History: No Psychological Hx Reported Smoking Status: Never smoker Past Alcohol Use History: Rare Past Drug Use History: None Reported - Past Family History Mother Family Medical History: Liver Disease Additional Family Medical History / Comment(s): MOM WHEN PT WAS 9 YEARS OLD FROM CIRRHOSIS Father Family Medical History: Myocardial Infarction ([place]) Additional Family Medical History / Comment(s): AGE 69 FROM [place] General Exam - General Exam Comments Initial Comments: Erythema and redness of the left foot from the great toe into the ankle Limitations: no limitations General appearance: alert, in no apparent distress Head exam: Present: atraumatic, normocephalic, normal inspection Eye exam: Present: normal appearance, PERRL, EOMI. Absent: scleral icterus, conjunctival injection, periorbital swelling ENT exam: Present: normal exam, mucous membranes moist Neck exam: Present: normal inspection. Absent: tenderness, meningismus, lymphadenopathy Respiratory exam: Present: normal lung sounds bilaterally. Absent: respiratory distress, wheezes, rales, rhonchi, stridor Cardiovascular Exam: Present: regular rate, normal rhythm, normal heart sounds. Absent: systolic murmur, diastolic murmur, rubs, gallop, clicks GI/Abdominal exam: Present: soft, normal bowel sounds. Absent: distended, t enderness, guarding, rebound, rigid Extremities exam: Present: normal inspection, full ROM, normal capillary refill. Absent: tenderness, pedal edema, joint swelling, calf tenderness Back exam: Present: normal inspection Neurological exam: Present: alert, oriented X3, CN II-XII intact Psychiatric exam: Present: normal affect, normal mood Skin exam: Present: warm, dry, intact, normal color. Absent: rash Course Vital Signs 12/18/23 12/18/23 12/19/23 23:08 23:20 01:32 Temperature 98.8 F 100.6 F H Pulse Rate 91 76 78 Respiratory 18 16 16 Rate Blood Pressure 119/73 117/68 119/60 O2 Sat by Pulse 95 97 97 Oximetry 12/19/23 12/19/23 12/19/23 02:12 03:29 04:52 Temperature 98.8 F Pulse Rate 97 69 66 Respiratory 16 14 17 Rate Blood Pressure 127/66 106/76 O2 Sat by Pulse 96 95 92 L Oximetry 12/19/23 05:50 Temperature 98.1 F Pulse Rate 67 Respiratory 15 Rate Blood Pressure 115/77 O2 Sat by Pulse 96 Oximetry - Reevaluation(s) Reevaluation #1: 12/19/23 01:42 Echo records reviewed 12/19/23 01:42 Medical records reviewed Reevaluation #2: 12/19/23 01:42 Patient symptoms improved Reevaluation #3: 12/19/23 01:42 Patient informed of results and questions answered Reevaluation #4: 12/19/23 01:43 Was pt. sent in by a medical professional or institution (, [facility], CITY DESIGNER, urgent care, hospital, or retirement...) When possible be specific @ -no Did you speak to anyone other than the patient for history (EMS, parent, family, police, friend...)? What history was obtained from this source @ -no Did you review nursing and triage notes (agree or disagree)? Why? @ -agree Are old charts reviewed (outside hosp., previous admission, EMS record, old EKG, old radiological studies, urgent care reports/EKG's, retirement records)? R eport findings @ -yes Differential Diagnosis (chest pain, altered mental status, abdominal pain women, abdominal pain men, vaginal bleeding, weakness, fever, dyspnea, syncope, headache, dizziness, GI bleed, back pain, seizure, CVA, palpatations, mental health, musculoskeletal)? @ -prior EKG interpreted by me (3pts min.). @ -yes X-rays interpreted by me (1pt min.). @ -yes negative for acute disease CT interpreted by me (1pt min.). @ -no U/S interpreted by me (1pt. min.). @ -no What testing was considered but not performed or refused? (CT, X-rays, U/S, labs)? Why? @ -none What meds were considered but not given or refused? Why? @ -none Did you discuss the management of the patient with other professionals (professionals i.e. [facility] Obrien, CITY DESIGNER, lab, RT, psych nurse, social services aide, clinical transformation specialist, teacher, vessel traffic officer, case management associate)? Give summary @ -no Was smoking cessation discussed for >3mins.? @ -no Was critical care preformed (if so, how long)? @ -no Were there social determinants of health that impacted care today? How? (Homelessness, low income, unemployed, alcoholism, drug addiction, transportation, low edu. Level, literacy, decrease access to med. care, senior care, rehab)? @ -none Was there de-escalation of care discussed even if they declined (Discuss DNR or withdrawal of care, Hospice)? DNR status @ -no What co-morbidities impacted this encounter? (DM, HTN, Smoking, COPD, CAD, Cancer, CVA, ARF, Chemo, Hep., AIDS, mental health diagnosis, sleep apnea, morbid obesity)? @ -none Was patient admitted / discharged? Hospital course, mention meds given and route, prescriptions, significant lab abnormalities, going to OR and other pertinent info. @ - 78 male with significant cellulitis of the left foot diabetic foot cellulitis, patient will admit for IV antibiotics Admitted Undiagnosed new problem with uncertain prognosis? @ -no Drug Therapy requiring intensive monitoring for toxicity (Heparin, Nitro, Insulin, Cardizem)? @ -no Were any procedures done? @ -no Diagnosis/symptom? @ -Diabetic foot cellulitis Acute, or Chronic, or Acute on Chronic? @ -Acute Uncomplicated (without systemic symptoms) or Complicated (systemic symptoms)? @ -Complicated Side effects of treatment? @ -no Exacerbation, Progression, or Severe Exacerbation? @ -exacerbation Poses a threat to life or bodily function? How? (Chest pain, [place], [place], pneumonia, PE, COPD, DKA, ARF, appy, cholecystitis, CVA, Diverticulitis, Homicidal, Suicidal, threat to staff... and all critical care pts) @ -yes extremes of age - Consultations Consultation #1: With Dr. Butler who agrees to admit this patient Medical Decision Making - Medical Decision Making 78 male with significant cellulitis of the left foot diabetic foot cellulitis, patient will admit for IV antibiotics - Lab Data Result diagrams: 12/24/23 05:25 12/24/23 05:25 Lab Results 12/18/23 12/18/23 12/18/23 Range/Units 23:55 23:55 23:55 WBC 14.7 H (3.8-10.6) k/uL RBC 4.17 L (4.30-5.90) m/uL Hgb 13.6 (13.0-17.5) gm/dL Hct 42.5 (39.0-53.0) % MCV 102.0 H (80.0-100.0) fL MCH 32.7 (25.0-35.0) pg MCHC 32.0 (31.0-37.0) g/dL RDW 11.9 (11.5-15.5) % Plt Count 183 (150-450) k/uL MPV 8.0 Neutrophils % 81 % Lymphocytes % 10 % Monocytes % 7 % Eosinophils % 2 % Basophils % 0 % Neutrophils # 11.9 H (1.3-7.7) k/uL Lymphocytes # 1.4 (1.0-4.8) k/uL Monocytes # 1.0 (0-1.0) k/uL Eosinophils # 0.2 (0-0.7) k/uL Basophils # 0.1 (0-0.2) k/uL PT 10.8 (10.0-12.5) sec INR 1.0 (<1.2) APTT 23.8 (22.0-30.0) sec Sodium 133 L (137-145) mmol/L Potassium 4.6 (3.5-5.1) mmol/L Chloride 107 (98-107) mmol/L Carbon Dioxide 19 L (22-30) mmol/L Anion Gap 7 mmol/L BUN 29 H (9-20) mg/dL Creatinine 1.19 (0.66-1.25) mg/dL Est GFR (CKD-EPI)AfAm 68 (>60 ml/min/1.73 sqM) Est GFR (CKD-EPI)NonAf 59 (>60 ml/min/1.73 sqM) Glucose 166 H (74-99) mg/dL Plasma Lactic Acid Deuce (0.7-2.0) mmol/L Calcium 8.8 (8.4-10.2) mg/dL Phosphorus 2.9 (2.5-4.5) mg/dL Magnesium 1.8 (1.6-2.3) mg/dL Total Bilirubin 1.2 (0.2-1.3) mg/dL AST 25 (17-59) U/L ALT 22 (4-49) U/L Alkaline Phosphatase 85 (38-126) U/L Troponin I (0.000-0.034) ng/mL C-Reactive Protein 16.2 H (<1.0) mg/dL NT-Pro-B Natriuret Pep 280 pg/mL Total Protein 6.2 L (6.3-8.2) g/dL Albumin 3.9 (3.5-5.0) g/dL 12/18/23 12/18/23 Range/Units 23:55 23:55 WBC (3.8-10.6) k/uL RBC (4.30-5.90) m/uL Hgb (13.0-17.5) gm/dL Hct (39.0-53.0) % MCV (80.0-100.0) fL MCH (25.0-35.0) pg MCHC (31.0-37.0) g/dL RDW (11.5-15.5) % Plt Count (150-450) k/uL MPV Neutrophils % % Lymphocytes % % Monocytes % % Eosinophils % % Basophils % % Neutrophils # (1.3-7.7) k/uL Lymphocytes # (1.0-4.8) k/uL Monocytes # (0-1.0) k/uL Eosinophils # (0-0.7) k/uL Basophils # (0-0.2) k/uL PT (10.0-12.5) sec INR (<1.2) APTT (22.0-30.0) sec Sodium (137-145) mmol/L Potassium (3.5-5.1) mmol/L Chloride (98-107) mmol/L Carbon Dioxide (22-30) mmol/L Anion Gap mmol/L BUN (9-20) mg/dL Creatinine (0.66-1.25) mg/dL Est GFR (CKD-EPI)AfAm (>60 ml/min/1.73 sqM) Est GFR (CKD-EPI)NonAf (>60 ml/min/1.73 sqM) Glucose (74-99) mg/dL Plasma Lactic Acid Deuce 1.3 (0.7-2.0) mmol/L Calcium (8.4-10.2) mg/dL Phosphorus (2.5-4.5) mg/dL Magnesium (1.6-2.3) mg/dL Total Bilirubin (0.2-1.3) mg/dL AST (17-59) U/L ALT (4-49) U/L Alkaline Phosphatase (38-126) U/L Troponin I <0.012 (0.000-0.034) ng/mL C-Reactive Protein (<1.0) mg/dL NT-Pro-B Natriuret Pep pg/mL Total Protein (6.3-8.2) g/dL Albumin (3.5-5.0) g/dL - EKG Data -: EKG Interpreted by Me (EKG is sinus 79 TN 173 QRS 151 QTc 416) - Radiology Data Radiology results: report reviewed (Very left foot is negative for acute disease), image reviewed Disposition Clinical Impression: Pain of left great toe, Cellulitis of left foot, Leukocytosis, Morbid obesity, Diabetes Disposition: ADMITTED IP TO THIS HOSP Condition: Stable Is patient prescribed a controlled substance at d/c from ED?: No Time of Disposition: 01:45
[2023-12-19 00:09] LABS: Basophils # (A) 0.1 k/uL (0-0.2); Basophils % (A) 0 %; Eosinophils # (A) 0.2 k/uL (0-0.7); Eosinophils % (A) 2 %; HCT 42.5 % (39.0-53.0); HGB 13.6 gm/dL (13.0-17.5); Lymphocytes # (A) 1.4 k/uL (1.0-4.8); Lymphocytes % (A) 10 %; MCH 32.7 pg (25.0-35.0); Monocytes % (A) 7 %; Neutrophils # (A) 11.9 k/uL (1.3-7.7); Neutrophils % (A) 81 %; Platelet Count 183 k/uL (150-450); RBC 4.17 m/uL (4.30-5.90); RDW 11.9 % (11.5-15.5); WBC 14.7 k/uL (3.8-10.6)
[2023-12-19 00:30] LABS: ALT 22 U/L (4-49); African American GFR (CKD) 68 (>60 ml/min/1.73 sqM); Albumin 3.9 g/dL (3.5-5.0); Anion Gap 7 mmol/L; Blood Urea Nitrogen 29 mg/dL (9-20); Calcium 8.8 mg/dL (8.4-10.2); Carbon Dioxide 19 mmol/L (22-30); Chloride 107 mmol/L (98-107); Glucose 166 mg/dL (74-99); Non-African American GFR(CKD) 59 (>60 ml/min/1.73 sqM); Sodium 133 mmol/L (137-145); Total Bilirubin 1.2 mg/dL (0.2-1.3); Total Protein 6.2 g/dL (6.3-8.2)
[2023-12-19 00:33] LABS: Partial Thromboplastin Time 23.8 sec (22.0-30.0); Prothrombin Time 10.8 sec (10.0-12.5)
[2023-12-19 00:36] LABS: NT-Pro-B-Type Natriuretic Pept 280 pg/mL
[2023-12-19 00:56] LABS: Phosphorus 2.9 mg/dL (2.5-4.5); Potassium 4.6 mmol/L (3.5-5.1)
[2023-12-19 00:57] LABS: AST 25 U/L (17-59); Alkaline Phosphatase 85 U/L (38-126); C Reactive Protein 16.2 mg/dL (<1.0); Magnesium 1.8 mg/dL (1.6-2.3)
--- NOTE | 2023-12-19 01:05 | XR ---
EXAMINATION TYPE: XR foot complete LT DATE OF EXAM: 12/19/2023 CLINICAL HISTORY: Pain and swelling with redness TECHNIQUE: Frontal, lateral, and oblique images of the left foot are obtained. COMPARISON: None FINDINGS: There is no acute fracture/dislocation evident in the left foot. No suspicious bony destr uction. The joint spaces in the left foot appear within normal limits. Arterial vascular calcificatio n is seen. Tiny inferior calcaneal spur. Bony projection or enthesopathy posterior superior calcaneus at distal Achilles tendon insertion is noted. IMPRESSION: As above.
[2023-12-19] MEDS: KETOROLAC 15 MG/ML 1 ML VIAL IVP STA (01:27)
[2023-12-19] MEDS ORDERED: VANCOMYCIN IV PER PHARMACY 1 EACH MISC MISCELLANE PRN (01:27)
[2023-12-19] MEDS: DEXAMETHASONE SOD PHOSPHATE 4 MG/ML 1 ML VIAL IVP STA (01:28)
[2023-12-19] MEDS: SODIUM CHLORIDE 0.9% 1,000 ML IV STA (01:28)
[2023-12-19] MEDS ORDERED: NALOXONE 0.4 MG/ML 1 ML VIAL IV PRN (01:54)
[2023-12-19] MEDS ORDERED: MORPHINE SULFATE 4 MG/ML SYRINGE IV PRN (01:54)
[2023-12-19] MEDS ORDERED: ONDANSETRON 4 MG/2 ML VIAL IVP PRN (01:54)
[2023-12-19] MEDS: MORPHINE SULFATE 4 MG/ML SYRINGE IVP STA (02:16)
[2023-12-19] MEDS: ACETAMINOPHEN TAB 500 MG TAB PO STA (02:25)
[2023-12-19] MEDS: SODIUM CHLORIDE 0.9% 1,000 ML IV SCH (03:28)
[2023-12-19] MEDS: VANCOMYCIN 1,750 MG in SODIUM CHLORIDE 0.9% 500 ML 500 ML IVPB ONE (03:29)
[2023-12-19 06:21] LABS: Glucose,Whole Blood 186 mg/dL (70-110)
[2023-12-19 07:07] LABS: Appearance,Urine Clear (Clear); Bilirubin,Urine Negative (Negative); Blood,Urine Negative (Negative); Color,Urine Yellow; Glucose,Urine (UA) Trace (Negative); Ketones,Urine Negative (Negative); Leukocyte Esterase,Urine Moderate (Negative); Mucus,Urine Rare /hpf; Nitrite,Urine Negative (Negative); Protein,Urine Trace (Negative); RBC,Urine 2 /hpf (0-5); Specific Gravity,Urine 1.023 (1.001-1.035); Squamous Epithelial Cell,Urine 1 /hpf (0-4); WBC,Urine 12 /hpf (0-5)
[2023-12-19] MEDS ORDERED: DEXTROSE 50% SYRINGE 50 ML IVP PRN ×2 (07:45)
[2023-12-19] MEDS: IBUPROFEN 800 MG TAB PO STA (10:48)
[2023-12-19 12:37] LABS: Glucose,Whole Blood 316 mg/dL (70-110)
[2023-12-19] MEDS: INSULIN ASPART (NovoLOG) 100 UNIT/ML VIAL SQ SCH (13:00)
[2023-12-19] MEDS: INSULIN DETEMIR (LEVEMIR) 100 UNIT/ML SYR SQ SCH (14:25)
[2023-12-19] MEDS: LEVOTHYROXINE 100 MCG TAB PO SCH (14:25)
[2023-12-19] MEDS: SERTRALINE 50 MG TAB PO SCH (14:58)
[2023-12-19] MEDS: VANCOMYCIN 1,750 MG in SODIUM CHLORIDE 0.9% 500 ML 500 ML IVPB SCH (14:59)
[2023-12-19] MEDS: LEVOTHYROXINE 75 MCG TAB PO SCH (14:59)
[2023-12-19] MEDS: ACETAMINOPHEN TAB 500 MG TAB PO PRN (16:05)
--- NOTE | 2023-12-19 16:57 | P.HPIM ---
History of Present Illness H&P Date: 12/19/23 Chief Complaint: Left foot cellulitis Is a 78-year-old gentleman admitted with progressive left foot pain accompanied by redness, edema, and the patient with past medical history significant for obesity, diabetes mellitus, hypertension, CAD, [place], hypothyroidism, diverticulosis, prostate disorder, former nicotine dependence and multiple other medical issues. Reports Sunday developed some mild swelling and redness on the ball of his left foot without pain. Redness and edema continued worsening beginning to travel up his leg and by Sunday pain intensified, worsened by w eightbearing. Denies drainage. denies trauma to the affected extremity. Denies fevers or chills. Denies lightheadedness, dizziness or focal deficits. EKG reported sinus rhythm with a right bundle branch block, left ante, troponin negative x 1 .denies chest pain, palpitations or shortness of breath. Maintaining O2 sats of mid 90s on room air. On admission afebrile, vital signs stable with elevated WBC of 14.7. Isolated fever developed shortly after admission, 100.6. Hemoglobin 13.6, platelets 183, MCV 102. Sodium 133, potassium 4.6, bicarb 19, BUN 29, creatinine 1.19. Blood sugars on admission 166, this morning 186. UA reported moderate leukocytes, negative nitrates, 12 WBCs. Left foot x-ray reported no acute fracture, dislocation, no suspicious bony distraction, joint spaces appear within normal limits. Arterial vascular calcification seen, tiny inferior calcaneal spur. Bony projection or enthesopathy posterior superior calcaneus at distal Achilles tendon insertion is noted. IV antibiotics initiated in the ER. Review of Systems ROS Statement: Those systems with pertinent positive or pertinent negative responses have been documented in the HPI. ROS Other: All systems not noted in ROS Statement are negative. Past Medical History Past Medical History: CVA/TIA, Diabetes Mellitus, Hypertension, Myocardial Infarction ([place]), Musculoskeletal Disorder, Prostate Disorder, Thyroid Disorder Additional Past Medical History / Comment(s): covid May 2020,CONCUSSION 2014; PSORIASES, HEMORRHOIDS, LT SHOULDER IMPINGMENT SYNDROME,THRYOID NODLUE ;BPH,SCIATICA Last Myocardial Infarction Date:: 03/03/2017 History of Any Multi-Drug Resistant Organisms: MRSA Date of last positivie culture/infection: 2014 MDRO Source:: Buttocks Past Surgical History: Cholecystectomy, Heart Catheterization With Stent, Hernia Repair Additional Past Surgical History / Comment(s): thyroidectomy, RK LASIK, COLONOSCOPY, LT INGUINAL HERNIA, UMBILICAL HERNIA,lt cataract Past Anesthesia/Blood Transfusion Reactions: No Reported Reaction Date of Last Stent Placement:: 2016 Past Psychological History: No Psychological Hx Reported Smoking Status: Former smoker Past Alcohol Use History: Rare Additional Past Alcohol Use History / Comment(s): past smoker has not smoked since s. Past Drug Use History: None Reported - Past Family History Mother Family Medical History: Liver Disease Additional Family Medical History / Comment(s): MOM WHEN PT WAS 9 YEARS OLD FROM CIRRHOSIS Father Family Medical History: Myocardial Infarction ([place]) Additional Family Medical History / Comment(s): AGE 69 FROM [place] Medications and Allergies Home Medications Medication Instructions Recorded Confirmed Type Ezetimibe [Zetia] 10 mg PO DAILY@0803/31/21 12/19/23 History Tamsulosin HCl [Flomax] 0.4 mg PO HS@209903/31/21 12/19/23 History metFORMIN HCL 500 mg PO BID@799,209903/31/21 12/19/23 History Ascorbic Acid [Vitamin C] 500 mg PO DAILY@89912/19/23 12/19/23 History Aspirin [Adult Low Dose Aspirin EC] 81 mg PO HS@209912/19/23 12/19/23 History Atorvastatin [Lipitor] 40 mg PO HS@209912/19/23 12/19/23 History Benazepril [Lotensin] 10 mg PO DAILY@79912/19/23 12/19/23 History Cinnamon Bark [Cinnamon] 500 mg PO DAILY@89912/19/23 12/19/23 History Cyanocobalamin [Vitamin B-12] 500 mcg PO DAILY@89912/19/23 12/19/23 History Esomeprazole Magnesium [NexIUM] 20 mg PO DAILY@79912/19/23 12/19/23 History L.acidoph,Paracasei, B.lactis 1 cap PO DAILY@89912/19/23 12/19/23 History [Probiotic] Levothyroxine Sodium [Synthroid] 175 mcg PO DAILY@79912/19/23 12/19/23 History Loratadine [Claritin] 10 mg PO HS@209912/19/23 12/19/23 History Metoprolol Tartrate [Lopressor] 12.5 mg PO HS@2100 12/19/23 12/19/23 History Multivitamins, Thera [Multivitamin 1 tab PO DAILY@0900 12/19/23 12/19/23 History (formulary)] Sertraline [Zoloft] 50 mg PO DAILY@0800 12/19/23 12/19/23 History Trospium Chloride 20 mg PO BID@0800,2100 12/19/23 12/19/23 History Vitamin E Mixed [Vitamin E] 1,000 unit PO DAILY@0912/19/23 12/19/23 History Zinc Gluconate [Zinc] 50 mg PO DAILY@0912/19/23 12/19/23 History Allergies Allergy/AdvReac Type Severity Reaction Status Date / Time No Known Allergies Allergy Verified 12/19/23 05:53 Physical Exam Vitals: Vital Signs Temp Pulse Pulse Resp BP BP Pulse Ox 12/19/23 06:25 97.7 F 71 18 118/73 96 12/19/23 05:50 98.1 F 67 15 115/77 96 12/19/23 04:52 66 17 92 L 12/19/23 03:29 98.8 F 69 14 106/76 95 12/19/23 02:12 97 16 127/66 96 12/19/23 01:32 100.6 F H 78 16 119/60 97 12/18/23 23:20 76 16 117/68 97 12/18/23 23:08 98.8 F 91 18 119/73 95 Intake and Output 12/18/23 12/19/23 12/19/23 22:59 06:59 14:59 Other: # Voids 1 Weight 115.666 kg PHYSICAL EXAM: VITAL SIGNS: [As above] GENERAL: Alert and oriented x 3, sitting up in bed, no acute distress HEENT: Normocephalic, atraumatic, conjunctivae normal. eyes normal. NECK: Supple, no JVD. No thyroid enlargement. No LNs CARDIOVASCULAR: S1, S2 regular.. No murmur RESPIRATION: Unlabored, equal air entry, CTA ABDOMEN: Soft, nontender . No guarding. no masses palpable. No ascites, No hepatosplenomegaly.Bowel sounds heard. LEGS: Left foot redness, edema, positive DP NERVOUS SYSTEM: Cranial N 2-12 grossly normal. No focal deficits. Strength and sensation grossly intact.. Skin: Warm and dry Results CBC & Chem 7: 12/20/23 06:34 12/20/23 06:34 Labs: Abnormal Lab Results - Last 24 Hours (Table) 12/18/23 12/18/23 12/19/23 Range/Units 23:55 23:55 06:10 WBC 14.7 H (3.8-10.6) k/uL RBC 4.17 L (4.30-5.90) m/uL MCV 102.0 H (80.0-100.0) fL Neutrophils # 11.9 H (1.3-7.7) k/uL Sodium 133 L (137-145) mmol/L Carbon Dioxide 19 L (22-30) mmol/L BUN 29 H (9-20) mg/dL Glucose 166 H (74-99) mg/dL POC Glucose (mg/dL) (70-110) mg/dL C-Reactive Protein 16.2 H (<1.0) mg/dL Total Protein 6.2 L (6.3-8.2) g/dL Urine Protein Trace H (Negative) Urine Glucose (UA) Trace H (Negative) Ur Leukocyte Esterase Moderate H (Negative) Urine WBC 12 H (0-5) /hpf Urine Mucus Rare H (None) /hpf 12/19/23 Range/Units 06:17 WBC (3.8-10.6) k/uL RBC (4.30-5.90) m/uL MCV (80.0-100.0) fL Neutrophils # (1.3-7.7) k/uL Sodium (137-145) mmol/L Carbon Dioxide (22-30) mmol/L BUN (9-20) mg/dL Glucose (74-99) mg/dL POC Glucose (mg/dL) 186 H (70-110) mg/dL C-Reactive Protein (<1.0) mg/dL Total Protein (6.3-8.2) g/dL Urine Protein (Negative) Urine Glucose (UA) (Negative) Ur Leukocyte Esterase (Negative) Urine WBC (0-5) /hpf Urine Mucus (None) /hpf Thrombosis Risk Factor Assmnt - Choose All That Apply Each Risk Factor Represents 3 Points: Age 75 years or older Thrombosis Risk Factor Assessment Total Risk Factor Score: 3 Thrombosis Risk Factor Assessment Level: Moderate Risk Assessment and Plan Assessment: Sepsis secondary to cellulitis of left foot, ruling out gout, puncture wound appearance on plantar. Left foot x-ray reports bony projection or enthesopathy posterior superior calcaneus at distal Achilles tendon. History of MRSA Diabetes mellitus type 2, uncontrolled, hemoglobin A1c pending Obesity, BMI 35 Chronic renal failure III, baseline 1.1-1.2 Hypothyroidism CAD, history of [place] Hypertension Hyperlipidemia History of CVA Former nicotine dependence Plan: Continue on current medication resume ,monitoring and symptomatic treatment. Uric acid level pending. Discussed with RN,outline wound, elevate left foot. Avoid weightbearing of the left foot -use walker .gentle IV fluid hydration. IV antibiotics as per infectious disease in a patient with chronic kidney disease, history of MRSA , at high risk for nephrotoxicity. close monitoring of renal function with repeat labs ordered for a.m. tight blood sugar control, sliding scale plus Levemir insulin added to med regimen with close monitoring of Accu-Cheks. Hemoglobin A1c pending. The impression and plan of care has been dictated as directed. : I performed a history and examination of this patient, discussed the same with the dictator. I agree with the dictator's note ,documented as a scribe. Any additional findings or plans will be noted.
[2023-12-19 17:07] LABS: Glucose,Whole Blood 136 mg/dL (70-110)
[2023-12-19 20:14] LABS: Glucose,Whole Blood 240 mg/dL (70-110)
[2023-12-19] MEDS: TROSPIUM CHLORIDE 20 MG TABLET PO SCH (21:07)
[2023-12-19] MEDS: traMADol 50 MG TAB PO PRN (21:07)
[2023-12-19] MEDS: METOPROLOL TARTRATE 12.5 MG TAB PO SCH (21:07)
[2023-12-19] MEDS: LORATADINE 10 MG TAB PO SCH (21:07)
[2023-12-19] MEDS: ASPIRIN 81 MG PO SCH (21:07)
[2023-12-19] MEDS: TAMSULOSIN 0.4 MG CAP.ER.24H PO SCH (21:07)
[2023-12-19] MEDS: ATORVASTATIN 40 MG TAB PO SCH (21:07)
--- NOTE | 2023-12-19 22:11 | P.CONS ---
History of Present Illness - Reason for Consult Consult date: 12/19/23 Left foot cellulitis Requesting physician: Sarah Goff - Chief Complaint Increasing swelling redness to the left foot x 3 days - History of Present Illness Patient is a 78-year-old male past medical history significant for diabetes mellitus hypertension [place] hypothyroidism COVID-19 presenting to the hospital for evaluation of right foot pain swelling and redness symptoms started on Sunday that is 3 days before presentation to the hospital and mostly to the undersurface of the right big toe patient mention has been going up and down evaluate her a lot but did not recall any trauma or any puncture wound subsequent noticed to having diffuse swelling and redness to the right foot area for the patient was brought into the hospital patient was complaining of pain to be sharp moderate intensity without any radiation currently do not have any bowel movement or any drainage on presentation to the hospital patient did have a fever of 100.6 F patient was not tachycardic hypotensive or hypoxic patient did have a white count of 14.7 with a left shift creatinine is 1.19 electrolytes has been normal liver enzymes are normal blood cultures obtained which are currently pending patient did have x-ray of the foot no acute fracture or dislocation no suspicious bony destruction or no evidence of any foreign body patient was started on vancomycin infectious disease was consulted for further management of antibiotic therapy Review of Systems Positive point and negatives has been mentioned in the HPI, complete review of systems was performed and all other systems are negative Past Medical History Past Medical History: CVA/TIA, Diabetes Mellitus, Hypertension, Myocardial Infarction ([place]), Musculoskeletal Disorder, Prostate Disorder, Thyroid Disorder Additional Past Medical History / Comment(s): covid May 2020,CONCUSSION 2014; PSORIASES, HEMORRHOIDS, LT SHOULDER IMPINGMENT SYNDROME,THRYOID NODLUE ;BPH,SCIATICA Last Myocardial Infarction Date:: 03/03/2017 History of Any Multi-Drug Resistant Organisms: MRSA Year Discovered:: 2014 MDRO Source:: Buttocks Past Surgical History: Cholecystectomy, Heart Catheterization With Stent, Hernia Repair Additional Past Surgical History / Comment(s): thyroidectomy, RK LASIK, COLONOSCOPY, LT INGUINAL HERNIA, UMBILICAL HERNIA,lt cataract Past Anesthesia/Blood Transfusion Reactions: No Reported Reaction Date of Last Stent Placement:: 2016 Past Psychological History: No Psychological Hx Reported Smoking Status: Former smoker Past Alcohol Use History: Rare Additional Past Alcohol Use History / Comment(s): past smoker has not smoked since 1960's. Past Drug Use History: None Reported - Past Family History Mother Family Medical History: Liver Disease Additional Family Medical History / Comment(s): MOM WHEN PT WAS 9 YEARS OLD FROM CIRRHOSIS Father Family Medical History: Myocardial Infarction ([place]) Additional Family Medical History / Comment(s): AGE 69 FROM [place] Medications and Allergies Home Medications Medication Instructions Recorded Confirmed Type Ezetimibe [Zetia] 10 mg PO DAILY@79903/31/21 12/19/23 History Tamsulosin HCl [Flomax] 0.4 mg PO HS@209903/31/21 12/19/23 History metFORMIN HCL 500 mg PO BID@799,209903/31/21 12/19/23 History Ascorbic Acid [Vitamin C] 500 mg PO DAILY@89912/19/23 12/19/23 History Aspirin [Adult Low Dose Aspirin EC] 81 mg PO HS@209912/19/23 12/19/23 History Atorvastatin [Lipitor] 40 mg PO HS@209912/19/23 12/19/23 History Benazepril [Lotensin] 10 mg PO DAILY@79912/19/23 12/19/23 History Cinnamon Bark [Cinnamon] 500 mg PO DAILY@89912/19/23 12/19/23 History Cyanocobalamin [Vitamin B-12] 500 mcg PO DAILY@89912/19/23 12/19/23 History Esomeprazole Magnesium [NexIUM] 20 mg PO DAILY@79912/19/23 12/19/23 History L.acidoph,Paracasei, B.lactis 1 cap PO DAILY@89912/19/23 12/19/23 History [Probiotic] Levothyroxine Sodium [Synthroid] 175 mcg PO DAILY@79912/19/23 12/19/23 History Loratadine [Claritin] 10 mg PO HS@209912/19/23 12/19/23 History Metoprolol Tartrate [Lopressor] 12.5 mg PO HS@209912/19/23 12/19/23 History Multivitamins, Thera [Multivitamin 1 tab PO DAILY@89912/19/23 12/19/23 History (formulary)] Sertraline [Zoloft] 50 mg PO DAILY@79912/19/23 12/19/23 History Trospium Chloride 20 mg PO BID@0800,2100 12/19/23 12/19/23 History Vitamin E Mixed [Vitamin E] 1,000 unit PO DAILY@0900 12/19/23 12/19/23 History Zinc Gluconate [Zinc] 50 mg PO DAILY@0900 12/19/23 12/19/23 History Allergies Allergy/AdvReac Type Severity Reaction Status Date / Time No Known Allergies Allergy Verified 12/19/23 05:53 Physical Exam Vitals: Vital Signs Temp Pulse Pulse Resp BP BP Pulse Ox 12/19/23 19:44 99.0 F 77 18 127/69 94 L 12/19/23 12:32 98.2 F 87 16 148/62 94 L 12/19/23 08:40 87 16 12/19/23 06:25 97.7 F 71 18 118/73 96 12/19/23 05:50 98.1 F 67 15 115/77 96 12/19/23 04:52 66 17 92 L 12/19/23 03:29 98.8 F 69 14 106/76 95 12/19/23 02:12 97 16 127/66 96 12/19/23 01:32 100.6 F H 78 16 119/60 97 12/18/23 23:20 76 16 117/68 97 12/18/23 23:08 98.8 F 91 18 119/73 95 Intake and Output 12/19/23 12/19/23 12/19/23 06:59 14:59 22:59 Intake Total 240 Balance 240 Intake: Oral 240 Other: Voiding Method Toilet # Voids 1 3 Weight 115.666 kg GENERAL DESCRIPTION: Elderly male lying in bed, no distress. No tachypnea or accessory muscle of respiration use. HEENT: Shows Pallor , no scleral icterus. Oral mucous membrane is dry. No pharyngeal erythema or thrush NECK: Trachea central, no thyromegaly. LUNGS: Unlabored breathing. Clear to auscultation anteriorly. No wheeze or crackle. HEART: S1, S2, regular rate and rhythm. No loud murmur ABDOMEN: Soft, no tenderness , guarding or rigidity, no organomegaly EXTREMITIES: Left foot did have diffuse swelling and redness patient did have a little tenderness at the base of the first metatarsal but no evidence of any fluctuation or drainage SKIN: No rash, no masses palpable. NEUROLOGICAL: The patient is awake, alert, oriented x3, mood and affect normal. Results CBC & Chem 7: 12/20/23 06:34 12/20/23 06:34 Labs: Abnormal Lab Results - Last 24 Hours (Table) 12/18/23 12/18/23 12/19/23 Range/Units 23:55 23:55 06:10 WBC 14.7 H (3.8-10.6) k/uL RBC 4.17 L (4.30-5.90) m/uL MCV 102.0 H (80.0-100.0) fL Neutrophils # 11.9 H (1.3-7.7) k/uL Sodium 133 L (137-145) mmol/L Carbon Dioxide 19 L (22-30) mmol/L BUN 29 H (9-20) mg/dL Glucose 166 H (74-99) mg/dL POC Glucose (mg/dL) (70-110) mg/dL C-Reactive Protein 16.2 H (<1.0) mg/dL Total Protein 6.2 L (6.3-8.2) g/dL Urine Protein Trace H (Negative) Urine Glucose (UA) Trace H (Negative) Ur Leukocyte Esterase Moderate H (Negative) Urine WBC 12 H (0-5) /hpf Urine Mucus Rare H (None) /hpf 12/19/23 12/19/23 12/19/23 Range/Units 06:17 12:35 17:06 WBC (3.8-10.6) k/uL RBC (4.30-5.90) m/uL MCV (80.0-100.0) fL Neutrophils # (1.3-7.7) k/uL Sodium (137-145) mmol/L Carbon Dioxide (22-30) mmol/L BUN (9-20) mg/dL Glucose (74-99) mg/dL POC Glucose (mg/dL) 186 H 316 H 136 H (70-110) mg/dL C-Reactive Protein (<1.0) mg/dL Total Protein (6.3-8.2) g/dL Urine Protein (Negative) Urine Glucose (UA) (Negative) Ur Leukocyte Esterase (Negative) Urine WBC (0-5) /hpf Urine Mucus (None) /hpf 12/19/23 Range/Units 20:12 WBC (3.8-10.6) k/uL RBC (4.30-5.90) m/uL MCV (80.0-100.0) fL Neutrophils # (1.3-7.7) k/uL Sodium (137-145) mmol/L Carbon Dioxide (22-30) mmol/L BUN (9-20) mg/dL Glucose (74-99) mg/dL POC Glucose (mg/dL) 240 H (70-110) mg/dL C-Reactive Protein (<1.0) mg/dL Total Protein (6.3-8.2) g/dL Urine Protein (Negative) Urine Glucose (UA) (Negative) Ur Leukocyte Esterase (Negative) Urine WBC (0-5) /hpf Urine Mucus (None) /hpf Assessment and Plan (1) Sepsis Current Visit: Yes Status: Acute Code(s): A41.9 - SEPSIS, UNSPECIFIED ORGANISM SNOMED Code(s): 73750975 (2) Leukocytosis Current Visit: Yes Status: Acute Code(s): D72.829 - ELEVATED WHITE BLOOD CELL COUNT, UNSPECIFIED SNOMED Code(s): 878886204 (3) Cellulitis of left foot Current Visit: Yes Status: Acute Code(s): L03.116 - CELLULITIS OF LEFT LOWER LIMB SNOMED Code(s): 05116588256727176 Plan: 1patient presented to hospital with sepsis in this patient who did have fever elevated white count source is left foot cellulitis in this patient did have diffuse swelling and redness and did have a puncture wound on the plantar aspect of the left foot at the base of the first metatarsal more likely source of entry of bacteria and cellulitis and likely streptococcal disease clinical suspicion is low for MRSA 2-discontinue vancomycin decrease risk of nephrotoxicity 3-we will start the patient cefazolin 3 g every 8 hours 4-we will repeat a CBC with a.m. lab to make sure white count is trending down We will follow on clinical condition and cultures to further adjust medication if needed Thank you for this consultation we will follow the patient along with you Dictation was produced using goodideazsation software. please excuse any grammatical, word or spelling errors. Time with Patient: Greater than 30
[2023-12-20 01:38] LABS: Glucose,Whole Blood 152 mg/dL (70-110)
[2023-12-20 08:23] LABS: Glucose,Whole Blood 145 mg/dL (70-110)
[2023-12-20] MEDS: LACTOBACILLUS ACIDOPHILUS/PECT 1 EACH CAPSULE PO SCH (09:10)
[2023-12-20] MEDS: ZINC SULFATE 220 MG CAP PO SCH (09:10)
[2023-12-20] MEDS: lisinopriL 10 MG TAB PO SCH (09:10)
[2023-12-20] MEDS: ASCORBIC ACID 500 MG TAB PO SCH (09:10)
[2023-12-20] MEDS: MULTIVITAMINS, THERA 1 EACH TAB PO SCH (09:10)
[2023-12-20] MEDS: PANTOPRAZOLE 40 MG TABLET PO SCH (09:10)
[2023-12-20] MEDS: CYANOCOBALAMIN 500 MCG TAB PO SCH (09:10)
[2023-12-20] MEDS: EZETIMIBE 10 MG TAB PO SCH (09:11)
[2023-12-20 10:31] LABS: Basophils # (A) 0.04 X 10*3/uL (0.00-0.10); Basophils % (A) 0.3 %; Eosinophils # (A) 0.16 X 10*3/uL (0.04-0.35); Eosinophils % (A) 1.4 %; HCT 36.4 % (39.6-50.0); HGB 11.9 g/dL (13.0-17.0); Lymphocytes % (A) 16.4 %; MCH 32.9 pg (27.0-32.0); MCHC 32.7 g/dL (32.0-37.0); MCV 100.6 FL (80.0-97.0); Mean Platelet Volume 10.9 FL (9.5-12.2); Monocytes # (A) 1.02 X 10*3/uL (0.20-1.00); Monocytes % (A) 8.8 %; NRBC Per 100 WBC 0 X 10*3/uL (0.00-0.01); Neutrophils # (A) 8.41 X 10*3/uL (1.80-7.70); Neutrophils % (A) 72.7 %; Platelet Count 173 X 10*3/uL (140-440); RBC 3.62 X 10*6/uL (4.40-5.60); RDW 11.9 % (11.5-14.5); WBC 11.58 X 10*3/uL (4.50-10.00)
[2023-12-20 10:41] LABS: ALT 16 U/L (10-49); AST 16 U/L (14-35); Albumin 3.6 g/dL (3.8-4.9); Albumin/Globulin Ratio 1.89 Ratio (1.60-3.17); Alkaline Phosphatase 46 U/L (41-126); BUN/Creat Ratio 14.85 Ratio (12.00-20.00); Blood Urea Nitrogen 19.3 mg/dL (9.0-27.0); Calcium 8.3 mg/dL (8.7-10.3); Carbon Dioxide 22.4 mmol/L (21.6-31.8); Chloride 107 mmol/L (96-109); Globulin 1.9 g/dL (1.6-3.3); Glucose 148 mg/dL (70-110); Potassium 4.6 mmol/L (3.5-5.5); Sodium 138 mmol/L (135-145); Total Bilirubin 0.5 mg/dL (0.3-1.2); Total Protein 5.5 g/dL (6.2-8.2)
[2023-12-20 12:09] LABS: Glucose,Whole Blood 140 mg/dL (70-110)
--- NOTE | 2023-12-20 14:35 | P.PN ---
Subjective Progress Note Date: 12/20/23 H&P Date: 12/19/23 Chief Complaint: Left foot cellulitis Is a 78-year-old gentleman admitted with progressive left foot pain accompanied by redness, edema, and the patient with past medical history significant for obesity, diabetes mellitus, hypertension, CAD, DC, hypothyroidism, diverticulosis, prostate disorder, former nicotine dependence and multiple other medical issues. Reports Sunday developed some mild swelling and redness on the ball of his left foot without pain. Redness and edema continued worsening beginning to travel up his leg and by Sunday pain intensified, worsened by weightbearing. Denies drainage. denies trauma to the affected extremity. Denies fevers or chills. Denies lightheadedness, dizziness or focal deficits. EKG reported sinus rhythm with a right bundle branch block, left ante, troponin negative x 1 .denies chest pain, palpitations or shortness of breath. Maintaining O2 sats of mid 90s on room air. On admission afebrile, vital signs stable with elevated WBC of 14.7. Isolated fever developed shortly after adm ission, 100.6. Hemoglobin 13.6, platelets 183, MCV 102. Sodium 133, potassium 4.6, bicarb 19, BUN 29, creatinine 1.19. Blood sugars on admission 166, this morning 186. UA reported moderate leukocytes, negative nitrates, 12 WBCs. Left foot x-ray reported no acute fracture, dislocation, no suspicious bony distraction, joint spaces appear within normal limits. Arterial vascular calcification seen, tiny inferior calcaneal spur. Bony projection or enthesopathy posterior superior calcaneus at distal Achilles tendon insertion is noted. IV antibiotics initiated in the ER. 12/20/23 Uric Acid 3.9. Antibiotics adjusted by ID.currently on cefazolin. Foot improving.Afebrile.Labs pending.BS better controlled.Denies chest pain, palpitations or shortness of breath. Objective - Vital Signs Vital signs: Vital Signs Temp 97.4 F L 12/20/23 07:08 Pulse 65 12/20/23 07:08 Resp 16 12/20/23 07:08 BP 136/77 12/20/23 07:08 Pulse Ox 96 12/20/23 07:08 FiO2 Intake & Output 12/19/23 12/20/23 12/20/23 18:59 06:59 18:59 Intake Total 240 Balance 240 Intake: Oral 240 Other: Voiding Method Toilet Toilet Toilet # Voids 3 1 - Exam PHYSICAL EXAM: VITAL SIGNS: [As above] GENERAL: Alert and oriented x 3, sitting up in bed, no acute distress HEENT: Normocephalic, atraumatic, conjunctivae normal. eyes normal. MMM. NECK: Supple, no JVD. CARDIOVASCULAR: S1, S2 regular.. No murmur RESPIRATION: Unlabored, equal air entry, CTA ABDOMEN: Soft, nontender . No guarding. no masses palpable. Bowel sounds heard. LEGS: Affected site outlined with decreasing Left foot redness, edema, positive DP NERVOUS SYSTEM: Cranial N 2-12 grossly normal. No focal deficits. Strength and sensation grossly intact. Skin: Warm and dry - Labs CBC & Chem 7: 12/20/23 06:34 12/20/23 06:34 Labs: Abnormal Lab Results - Last 24 Hours (Table) 12/19/23 12/19/23 12/19/23 Range/Units 12:35 17:06 20:12 POC Glucose (mg/dL) 316 H 136 H 240 H (70-110) mg/dL 12/20/23 12/20/23 Range/Units 01:35 08:22 POC Glucose (mg/dL) 152 H 145 H (70-110) mg/dL Assessment and Plan Assessment: Sepsis secondary to cellulitis of left foot, gout ruled out, puncture wound appearance on plantar. Left foot x-ray reports bony projection or enthesopathy posterior superior calcaneus at distal Achilles tendon. History of MRSA Diabetes mellitus type 2, uncontrolled, hemoglobin A1c 7.3 Obesity, BMI 35 Acute on Chronic renal failure III, baseline 1.1-1.2,vancomycin induced. Hypothyroidism CAD, history of DC Hypertension Hyperlipidemia History of CVA Former nicotine dependence Plan: Continue on current medication resume ,monitoring and symptomatic treatment. Antibx. as per ID.Continue avoiding weightbearing of left foot. Avoid nephrotoxins.Continue gentle IV fluid hydration. Close monitoring of renal function with repeat labs ordered for a.m. Maintain tight blood sugar control with close monitoring of Accu-Cheks. Plan of care discussed at bedside with patient and daughter. Questions and concerns addressed. The impression and plan of care has been dictated as directed. : I performed a history and examination of this patient, discussed the same with the dictator. I agree with the dictator's note ,documented as a scribe. Any additional findings or plans will be noted.
[2023-12-20] MEDS: DAPTOMYCIN IVPB SCH (15:05)
[2023-12-20] MEDS: SODIUM CHLORIDE 0.9% IVPB SCH (15:05)
--- NOTE | 2023-12-20 15:06 | P.PN ---
Subjective Progress Note Date: 12/20/23 Principal diagnosis: Reason for follow-up is left foot cellulitis concerning for possible abscess Patient is a 78-year-old male past medical history significant for diabetes mellitus hypertension [place] hypothyroidism COVID-19 presenting to the hospital for evaluation of left foot pain swelling and redness has been diagnosed with the left foot cellulitis, x-rays were negative for any bony changes or foreign body. On today's evaluation that is 12/20/2023,the patient denies any fever or any chills, patient is breathing comfortably on room air, the patient denies chest pain shortness of breath and no significant cough, patient denies abdominal pain, no nausea vomiting or diarrhea. Patient be complaining of more discomfort to the left foot plantar aspect especially at the big toe site but no drainage. Patient white count is down to 11.58, creatinine is 1.3 blood cultures pending Objective - Vital Signs Vital signs: Vital Signs Temp 97.4 F L 12/20/23 07:08 Pulse 65 12/20/23 07:08 Resp 16 12/20/23 07:08 BP 136/77 12/20/23 07:08 Pulse Ox 96 12/20/23 11:10 FiO2 21 12/20/23 11:10 Intake & Output 12/19/23 12/20/23 12/20/23 18:59 06:59 18:59 Intake Total 240 Balance 240 Intake: Oral 240 Other: Voiding Method Toilet Toilet Toilet # Voids 3 1 - Exam GENERAL DESCRIPTION: An elderly male lying in bed in no distress RESPIRATORY SYSTEM: Unlabored breathing , decreased breath sounds at bases HEART: S1 S2 regular rate and rhythm , ABDOMEN: Soft , no tenderness EXTREMITIES: Left foot swelling is predominantly on the plantar aspect of the left foot at the base of the first metatarsal which is tender to touch but no drainage - Labs CBC & Chem 7: 12/20/23 06:34 12/20/23 06:34 Labs: Abnormal Lab Results - Last 24 Hours (Table) 12/19/23 12/19/23 12/19/23 Range/Units 12:35 17:06 20:12 WBC (4.50-10.00) X 10*3/uL RBC (4.40-5.60) X 10*6/uL Hgb (13.0-17.0) g/dL Hct (39.6-50.0) % MCV (80.0-97.0) FL MCH (27.0-32.0) pg Immature Gran # (0.00-0.04) X 10*3/uL Neutrophils # (1.80-7.70) X 10*3/uL Monocytes # (0.20-1.00) X 10*3/uL Est GFR (CKD-EPI) (>=60) Glucose (70-110) mg/dL POC Glucose (mg/dL) 316 H 136 H 240 H (70-110) mg/dL Hemoglobin A1c (<=6.0) % Calcium (8.7-10.3) mg/dL Total Protein (6.2-8.2) g/dL Albumin (3.8-4.9) g/dL 12/20/23 12/20/23 12/20/23 Range/Units 01:35 06:34 06:34 WBC 11.58 H (4.50-10.00) X 10*3/uL RBC 3.62 L (4.40-5.60) X 10*6/uL Hgb 11.9 L (13.0-17.0) g/dL Hct 36.4 L (39.6-50.0) % MCV 100.6 H (80.0-97.0) FL MCH 32.9 H (27.0-32.0) pg Immature Gran # 0.05 H (0.00-0.04) X 10*3/uL Neutrophils # 8.41 H (1.80-7.70) X 10*3/uL Monocytes # 1.02 H (0.20-1.00) X 10*3/uL Est GFR (CKD-EPI) (>=60) Glucose (70-110) mg/dL POC Glucose (mg/dL) 152 H (70-110) mg/dL Hemoglobin A1c 7.3 H (<=6.0) % Calcium (8.7-10.3) mg/dL Total Protein (6.2-8.2) g/dL Albumin (3.8-4.9) g/dL 12/20/23 12/20/23 12/20/23 Range/Units 06:34 08:22 12:08 WBC (4.50-10.00) X 10*3/uL RBC (4.40-5.60) X 10*6/uL Hgb (13.0-17.0) g/dL Hct (39.6-50.0) % MCV (80.0-97.0) FL MCH (27.0-32.0) pg Immature Gran # (0.00-0.04) X 10*3/uL Neutrophils # (1.80-7.70) X 10*3/uL Monocytes # (0.20-1.00) X 10*3/uL Est GFR (CKD-EPI) 57 L (>=60) Glucose 148 H (70-110) mg/dL POC Glucose (mg/dL) 145 H 140 H (70-110) mg/dL Hemoglobin A1c (<=6.0) % Calcium 8.3 L (8.7-10.3) mg/dL Total Protein 5.5 L (6.2-8.2) g/dL Albumin 3.6 L (3.8-4.9) g/dL Assessment and Plan (1) Sepsis Current Visit: Yes Status: Acute Code(s): A41.9 - SEPSIS, UNSPECIFIED ORGANISM SNOMED Code(s): 49605815 (2) Leukocytosis Current Visit: Yes Status: Acute Code(s): D72.829 - ELEVATED WHITE BLOOD CELL COUNT, UNSPECIFIED SNOMED Code(s): 626288408 (3) Cellulitis of left foot Current Visit: Yes Status: Acute Code(s): L03.116 - CELLULITIS OF LEFT LOWER LIMB SNOMED Code(s): 27521549313510334 Plan: 1patient presented to hospital with sepsis in this patient who did have fever elevated white count source is left foot cellulitis in this patient did have diffuse swelling and redness and did have a puncture wound on the plantar aspect of the left foot at the base of the first metatarsal more likely source of entry of bacteria and cellulitis with initial concern for possible cellulitis but now forming more into an abscess and possible staphylococcal aureus infection 2-we will obtain a CT of the left foot to make sure no evidence of any abscess that may need to be drained 3-we will discontinue cefazolin start the patient on daptomycin while waiting for the workup to be completed at the bedside questions were also Dictation was produced using dragon dictation software. please excuse any gra mmatical, word or spelling errors. Time with Patient: Greater than 30
[2023-12-20 17:18] LABS: Glucose,Whole Blood 163 mg/dL (70-110)
[2023-12-20 19:52] LABS: Glucose,Whole Blood 185 mg/dL (70-110)
[2023-12-21 06:59] LABS: Glucose,Whole Blood 133 mg/dL (70-110)
[2023-12-21 08:28] LABS: Basophils # (A) 0.06 X 10*3/uL (0.00-0.10); Basophils % (A) 0.6 %; Eosinophils # (A) 0.25 X 10*3/uL (0.04-0.35); Eosinophils % (A) 2.4 %; HCT 38.8 % (39.6-50.0); HGB 13.1 g/dL (13.0-17.0); Lymphocytes # (A) 1.87 X 10*3/uL (0.90-5.00); Lymphocytes % (A) 18.2 %; MCH 33.6 pg (27.0-32.0); MCHC 33.8 g/dL (32.0-37.0); MCV 99.5 FL (80.0-97.0); Mean Platelet Volume 10.8 FL (9.5-12.2); Monocytes # (A) 1.06 X 10*3/uL (0.20-1.00); Monocytes % (A) 10.3 %; NRBC Per 100 WBC 0 X 10*3/uL (0.00-0.01); Neutrophils # (A) 6.99 X 10*3/uL (1.80-7.70); Neutrophils % (A) 67.9 %; Platelet Count 206 X 10*3/uL (140-440); RDW 11.8 % (11.5-14.5); WBC 10.29 X 10*3/uL (4.50-10.00)
[2023-12-21 08:44] LABS: BUN/Creat Ratio 13.07 Ratio (12.00-20.00); Blood Urea Nitrogen 18.3 mg/dL (9.0-27.0); Carbon Dioxide 23.1 mmol/L (21.6-31.8); Chloride 103 mmol/L (96-109); Glucose 132 mg/dL (70-110); Potassium 4.8 mmol/L (3.5-5.5); Sodium 136 mmol/L (135-145)
--- NOTE | 2023-12-21 08:51 | CT ---
EXAMINATION TYPE: CT foot LT w con CT DLP: 306.9 mGycm, Automated exposure control for dose reduction was used. DATE OF EXAM: 12/20/2023 5:32 PM COMPARISON: Extremity radiograph same day. CLINICAL INDICATION:Male, 78 years old with history of abscess at base of big toe; PHH, abscess at ba se of big toe TECHNIQUE: Axial images were obtained of the CT foot LT w con, Additional coronal and sagittal reform atted images and soft tissue and bone window were obtained for review. 3-D reconstruction was created on a separate workstation. Contrast used:80ml mL of Isovue 300 with IV Contrast, (None if empty) Oral contrast used: (None if empty) FINDINGS: Phlegmonous changes with possible small fluid collection near the first digit metatarsal ph alangeal joint plantar surface measuring 15 x 13 x 7 mm. No osseous erosion. Multifocal degeneration changes throughout the joints of the foot. There is no evidence of fracture, subluxation, or dislocat ion. No significant soft tissue swelling or joint effusion is identified. No focal muscular atrophy or edema is identified. No radiopaque foreign body identified. IMPRESSION: Phlegmonous changes with possible small fluid collection near the first digit metatarsal phalangeal j oint plantar surface measuring 15 x 13 x 7 mm. Phlegmonous change/cellulitis also noted. Findings cou ld be confirmed with ultrasound if clinically warranted.
[2023-12-21 11:55] LABS: Glucose,Whole Blood 146 mg/dL (70-110)
--- NOTE | 2023-12-21 13:13 | PN ---
PROGRESS NOTE DATE OF SERVICE: 12/21/2023 I am covering for Dr. Butler. SUBJECTIVE: This is a 78-year-old gentleman who was admitted with left foot cellulitis, also had injury with tempered glass. Apparently, the patient's table blow-up and accidentally stepped on this of glass and the patient has significant pain and swelling of the left foot, the dorsum ventral part and also there is streaking, redness going up the medial and lateral parts as well. The CAT scan of the foot showed phlegmonous changes with possible small fluid collection near the first digital metatarsophalangeal joint. Orthopedic evaluation is at this time. White count is elevated at 10.29. The patient is seeing Infectious Disease. The patient is currently on IV daptomycin. Cultures are negative so far. PAST MEDICAL HISTORY: Reviewed. REVIEW OF SYSTEMS: A 14-point review is negative except as mentioned earlier. CURRENT MEDICATIONS: Reviewed include daptomycin. PHYSICAL EXAMINATION: VITAL SIGNS: Pulse 70, blood pressure 122/60, respirations 20. HEENT: Conjunctivae normal. NECK: No jugular venous distention. RESPIRATIONS: Diminished at the bases. ABDOMEN: Soft, nontender. LEGS: Left foot swelling and tenderness, erythema present as mentioned earlier, some extension to the upper part. LABORATORY STUDIES: WBC is 10.2, rest of the labs are noted. ASSESSMENT: 1. Sepsis secondary to cellulitis of the left foot with possibly abscess secondary to puncture wound and rule out foreign body. 2. History of MRSA. 3. Diabetes mellitus type 2, uncontrolled. 4. Acute on chronic renal failure. 5. Hypothyroidism. 6. Hypertension. 7. Hyperlipidemia. RECOMMENDATIONS: Recommended to continue current medications, continue symptomatic treatment. Continue the antibiotics. Recommended orthopedic evaluation for surgical intervention. Follow closely with Infectious Disease, DVT prophylaxis. Further recommendations to follow. Monitor blood sugars closely. MMODL / IJN: [id number] / ANSHU
[2023-12-21] MEDS: LIDOCAINE 1% INJ 10MG/ML (20 ML MDV) SQ STA (14:56)
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
--- NOTE | 2023-12-21 16:44 | P.PN ---
Subjective Progress Note Date: 12/21/23 Principal diagnosis: Reason for follow-up is left foot cellulitis concerning for possible abscess Patient is a 78-year-old male past medical history significant for diabetes mellitus hypertension [place] hypothyroidism COVID-19 presenting to the hospital for evaluation of left foot pain swelling and redness has been diagnosed with the left foot cellulitis, x-rays were negative for any bony changes or foreign body. On today's evaluation that is 12/21/2023,the patient remains to be afebrile, patient is on room air not requiring supplemental oxygen and denies any shortne ss of breath no chest pain or cough.Patient denies having any nausea or vomiting, no abdominal pain and no diarrhea has been complaining of pain mostly to the left foot at the base of big toe current open wound or any drainage Patient white count is 10.29, creatinine is 1.4 blood culture currently pending Objective - Vital Signs Vital signs: Vital Signs Temp 98.2 F 12/21/23 06:57 Pulse 68 12/21/23 06:57 Resp 16 12/21/23 06:57 BP 133/80 12/21/23 06:57 Pulse Ox 96 12/21/23 06:57 FiO2 21 12/20/23 11:10 Intake & Output 12/20/23 12/21/23 12/21/23 18:59 06:59 18:59 Output Total 200 400 Balance -200 -400 Output: Urine 200 400 Other: Voiding Method Toilet Toilet Toilet - Exam GENERAL DESCRIPTION: An elderly male lying in bed in no distress RESPIRATORY SYSTEM: Unlabored breathing , decreased breath sounds at bases HEART: S1 S2 regular rate and rhythm , ABDOMEN: Soft , no tenderness EXTREMITIES: Left foot swelling is predominantly on the plantar aspect of the left foot at the base of the first metatarsal which is tender to touch but no drainage - Labs CBC & Chem 7: 12/21/23 05:05 12/21/23 05:05 Labs: Abnormal Lab Results - Last 24 Hours (Table) 12/20/23 12/20/23 12/20/23 Range/Units 12:08 17:16 19:50 WBC (4.50-10.00) X 10*3/uL RBC (4.40-5.60) X 10*6/uL Hct (39.6-50.0) % MCV (80.0-97.0) FL MCH (27.0-32.0) pg Immature Gran # (0.00-0.04) X 10*3/uL Monocytes # (0.20-1.00) X 10*3/uL Est GFR (CKD-EPI) (>=60) Glucose (70-110) mg/dL POC Glucose (mg/dL) 140 H 163 H 185 H (70-110) mg/dL 12/21/23 12/21/23 12/21/23 Range/Units 05:05 05:05 06:58 WBC 10.29 H (4.50-10.00) X 10*3/uL RBC 3.90 L (4.40-5.60) X 10*6/uL Hct 38.8 L (39.6-50.0) % MCV 99.5 H (80.0-97.0) FL MCH 33.6 H (27.0-32.0) pg Immature Gran # 0.06 H (0.00-0.04) X 10*3/uL Monocytes # 1.06 H (0.20-1.00) X 10*3/uL Est GFR (CKD-EPI) 52 L (>=60) Glucose 132 H (70-110) mg/dL POC Glucose (mg/dL) 133 H (70-110) mg/dL Microbiology - Last 24 Hours (Table) 12/19/23 01:45 Blood Culture - Preliminary Blood 12/19/23 02:10 Blood Culture - Preliminary Blood Assessment and Plan (1) Sepsis Current Visit: Yes Status: Acute Code(s): A41.9 - SEPSIS, UNSPECIFIED ORGANISM SNOMED Code(s): 45243023 (2) Leukocytosis Current Visit: Yes Status: Acute Code(s): D72.829 - ELEVATED WHITE BLOOD CELL COUNT, UNSPECIFIED SNOMED Code(s): 443259522 (3) Cellulitis of left foot Current Visit: Yes Status: Acute Code(s): L03.116 - CELLULITIS OF LEFT LOWER LIMB SNOMED Code(s): 24579633583125317 Plan: 1patient presented to hospital with sepsis in this patient who did have fever elevated white count source is left foot cellulitis in this patient did have diffuse swelling and redness and did have a puncture wound on the plantar aspect of the left foot at the base of the first metatarsal more likely source of entry of bacteria and cellulitis with initial concern for possible cellulitis but now forming more into an abscess and possible staphylococcal aureus infection 2-patient did have CT of the left foot with concern for small abscess right has been consulted for I&D and deep culture 3-patient to continue with daptomycin while waiting for culture to finalize . Discussed with the family Dictation was produced using [employer] dictation software. please excuse any grammatical, word or spelling errors. Time with Patient: Less than 30
[2023-12-21 17:05] LABS: Glucose,Whole Blood 155 mg/dL (70-110)
[2023-12-21 20:10] LABS: Glucose,Whole Blood 192 mg/dL (70-110)
[2023-12-22 07:07] LABS: Glucose,Whole Blood 129 mg/dL (70-110)
[2023-12-22 09:19] LABS: Basophils # (A) 0.06 X 10*3/uL (0.00-0.10); Basophils % (A) 0.6 %; Eosinophils # (A) 0.23 X 10*3/uL (0.04-0.35); Eosinophils % (A) 2.3 %; HCT 36.5 % (39.6-50.0); HGB 12.4 g/dL (13.0-17.0); Lymphocytes % (A) 17.2 %; MCH 33.6 pg (27.0-32.0); MCV 98.9 FL (80.0-97.0); Mean Platelet Volume 10.2 FL (9.5-12.2); Monocytes % (A) 11.2 %; NRBC Per 100 WBC 0 X 10*3/uL (0.00-0.01); Neutrophils # (A) 6.72 X 10*3/uL (1.80-7.70); Neutrophils % (A) 68.2 %; Platelet Count 214 X 10*3/uL (140-440); RBC 3.69 X 10*6/uL (4.40-5.60); RDW 11.7 % (11.5-14.5); WBC 9.86 X 10*3/uL (4.50-10.00)
[2023-12-22 09:41] LABS: BUN/Creat Ratio 12.86 Ratio (12.00-20.00); Calcium 8.5 mg/dL (8.7-10.3); Carbon Dioxide 23.4 mmol/L (21.6-31.8); Chloride 105 mmol/L (96-109); Glucose 145 mg/dL (70-110); Potassium 4.5 mmol/L (3.5-5.5); Sodium 138 mmol/L (135-145)
[2023-12-22 12:07] LABS: Glucose,Whole Blood 177 mg/dL (70-110)
--- NOTE | 2023-12-22 14:35 | P.PN ---
Subjective Progress Note Date: 12/22/23 Principal diagnosis: Reason for follow-up is left foot cellulitis concerning for possible abscess Patient is a 78-year-old male past medical history significant for diabetes mellitus hypertension [place] hypothyroidism COVID-19 presenting to the hospital for evaluation of left foot pain swelling and redness has been diagnosed with the left foot cellulitis, x-rays were negative for any bony changes or foreign body.Patient is status post evaluation by podiatry and did have I&D of the left foot small piece of fiberglass was removed did not mention any pocket of pus deep culture obtained which are currently pending. On today's evaluation that is 12/22/2023, the patient continues to be afebrile, the patient is on room air and breathing comfortably, the Pt denies having any chest pain or cough, the patient denies having any abdominal pain no vomiting or any diarrhea, pain to the left foot has decreased in intensity. Patient white count normalized to 9.86 creatinine is 1.4 cultures currently pending Objective - Vital Signs Vital signs: Vital Signs Temp 98.0 F 12/22/23 07:05 Pulse 70 12/22/23 07:05 Resp 17 12/22/23 07:05 BP 146/79 12/22/23 07:05 Pulse Ox 98 12/22/23 07:05 FiO2 21 12/20/23 11:10 Intake & Output 12/21/23 12/22/23 12/22/23 18:59 06:59 18:59 Intake Total 650 Output Total 225 Balance 650 -225 Intake: Intake, IV Titration 650 Amount DAPTOmycin 400 mg In 50 Sodium Chloride 0.9% 50 ml @ 100 mls/hr IVPB Q24HR [facility] Rx#:[id number] Sodium Chloride 0.9% 1, 600 000 ml @ 60 mls/hr IV . [id number] [facility] Rx#:[id number] Output: Urine 225 Other: Voiding Method Toilet # Voids 3 - Exam GENERAL DESCRIPTION: An elderly male lying in bed in no distress RESPIRATORY SYSTEM: Unlabored breathing , decreased breath sounds at bases HEART: S1 S2 regular rate and rhythm , ABDOMEN: Soft , no tenderness EXTREMITIES: Left foot currently dressed - Labs CBC & Chem 7: 12/22/23 04:30 12/22/23 04:30 Labs: Abnormal Lab Results - Last 24 Hours (Table) 12/21/23 12/21/23 12/22/23 Range/Units 17:03 20:07 04:30 RBC 3.69 L (4.40-5.60) X 10*6/uL Hgb 12.4 L (13.0-17.0) g/dL Hct 36.5 L (39.6-50.0) % MCV 98.9 H (80.0-97.0) FL MCH 33.6 H (27.0-32.0) pg Immature Gran # 0.05 H (0.00-0.04) X 10*3/uL Monocytes # 1.10 H (0.20-1.00) X 10*3/uL Est GFR (CKD-EPI) (>=60) Glucose (70-110) mg/dL POC Glucose (mg/dL) 155 H 192 H (70-110) mg/dL Calcium (8.7-10.3) mg/dL 12/22/23 12/22/23 12/22/23 Range/Units 04:30 07:06 12:05 RBC (4.40-5.60) X 10*6/uL Hgb (13.0-17.0) g/dL Hct (39.6-50.0) % MCV (80.0-97.0) FL MCH (27.0-32.0) pg Immature Gran # (0.00-0.04) X 10*3/uL Monocytes # (0.20-1.00) X 10*3/uL Est GFR (CKD-EPI) 52 L (>=60) Glucose 145 H (70-110) mg/dL POC Glucose (mg/dL) 129 H 177 H (70-110) mg/dL Calcium 8.5 L (8.7-10.3) mg/dL Microbiology - Last 24 Hours (Table) 12/21/23 15:40 Gram Stain - Preliminary Foot - Left 12/19/23 01:45 Blood Culture - Preliminary Blood 12/19/23 02:10 Blood Culture - Preliminary Blood Assessment and Plan (1) Sepsis Current Visit: Yes Status: Acute Code(s): A41.9 - SEPSIS, UNSPECIFIED ORGANISM SNOMED Code(s): 58082750 (2) Leukocytosis Current Visit: Yes Status: Acute Code(s): D72.829 - ELEVATED WHITE BLOOD CELL COUNT, UNSPECIFIED SNOMED Code(s): 931747684 (3) Cellulitis of left foot Current Visit: Yes Status: Acute Code(s): L03.116 - CELLULITIS OF LEFT LOWER LIMB SNOMED Code(s): 28427421960439600 Plan: 1patient presented to hospital with sepsis in this patient who did have fever elevated white count source is left foot cellulitis in this patient did have diffuse swelling and redness and did have a puncture wound on the plantar aspect of the left foot at the base of the first metatarsal more likely source of entry of bacteria and cellulitis with initial concern for possible cellulitis but now forming more into an abscess and possible staphylococcal aureus infection 2-patient did have CT of the left foot with concern for small abscess patient has been evaluated by podiatry did have I&D of the removal of small piece of fiberglass and culture which are currently pending 3-patient to continue with daptomycin while waiting for culture to finalize Discussed with the patient and the importance of staying in the hospital till cultures are finalized Dictation was produced using [employer] dictation software. please excuse any grammatical, word or spelling errors. Time with Patient: Less than 30
[2023-12-22] MEDS: KETOROLAC 15 MG/ML 1 ML VIAL IVP SCH (16:33)
[2023-12-22 17:02] LABS: Glucose,Whole Blood 166 mg/dL (70-110)
[2023-12-22 20:29] LABS: Glucose,Whole Blood 190 mg/dL (70-110)
--- NOTE | 2023-12-23 01:58 | PN ---
PROGRESS NOTE DATE OF SERVICE: 12/22/2023 I am covering for Dr. Butler. SUBJECTIVE: This 78-year-old gentleman was admitted with significant left foot cellulitis, had a bedside evaluation and drainage by Dr. Valdes. The patient is improving significantly, but still has some erythema. No chest pain. No palpitation. PHYSICAL EXAMINATION: VITAL SIGNS: Pulse is 74, blood pressure 130/62, respirations 16. CHEST: Clear to auscultation. CARDIOVASCULAR: S1, S2. ABDOMEN: Soft. EXTREMITIES: Left foot has erythema present in the dorsum as well as the sole. LABORATORY DATA: WBC is 9.8. ASSESSMENT: 1. Sepsis, secondary to cellulitis of the left foot with possibly abscess, secondary to puncture wound, status post incision and drainage. 2. History of methicillin-resistant Staphylococcus aureus. 3. Diabetes mellitus type 2, uncontrolled. 4. Acute on chronic renal failure. 5. Hypothyroidism. 6. Hypertension. 7. Hyperlipidemia. RECOMMENDATIONS: Recommended to continue current management, continue symptomatic treatment. Otherwise, at this time, the patient is on IV daptomycin. We will continue to monitor. If the white count is improving, I would recommend some anti-inflammatory medications also. MMODL / IJN: [id number] /
[2023-12-23 07:03] LABS: Glucose,Whole Blood 147 mg/dL (70-110)
[2023-12-23 09:33] LABS: Basophils # (A) 0.05 X 10*3/uL (0.00-0.10); Basophils % (A) 0.6 %; Eosinophils % (A) 3.4 %; HGB 12.2 g/dL (13.0-17.0); Lymphocytes # (A) 1.86 X 10*3/uL (0.90-5.00); Lymphocytes % (A) 21.2 %; MCH 33.6 pg (27.0-32.0); MCHC 33.9 g/dL (32.0-37.0); MCV 99.2 FL (80.0-97.0); Mean Platelet Volume 10.1 FL (9.5-12.2); Monocytes # (A) 0.92 X 10*3/uL (0.20-1.00); Monocytes % (A) 10.5 %; NRBC Per 100 WBC 0 X 10*3/uL (0.00-0.01); Neutrophils # (A) 5.57 X 10*3/uL (1.80-7.70); Neutrophils % (A) 63.4 %; Platelet Count 215 X 10*3/uL (140-440); RBC 3.63 X 10*6/uL (4.40-5.60); RDW 11.6 % (11.5-14.5); WBC 8.78 X 10*3/uL (4.50-10.00)
[2023-12-23 10:19] LABS: BUN/Creat Ratio 15.73 Ratio (12.00-20.00); Blood Urea Nitrogen 23.6 mg/dL (9.0-27.0); Calcium 8.4 mg/dL (8.7-10.3); Carbon Dioxide 22.8 mmol/L (21.6-31.8); Chloride 103 mmol/L (96-109); Glucose 139 mg/dL (70-110); Potassium 4.5 mmol/L (3.5-5.5); Sodium 136 mmol/L (135-145)
[2023-12-23 12:01] LABS: Glucose,Whole Blood 119 mg/dL (70-110)
--- NOTE | 2023-12-23 12:27 | PN ---
PROGRESS NOTE DATE OF SERVICE: 12/23/2023 I am covering for Dr. Butler. SUBJECTIVE: This 78-year-old gentleman was admitted with significant cellulitis of the foot and sepsis, slightly improving today. No chest pain, no palpitations. OBJECTIVE: VITAL SIGNS: Pulse is 52, blood pressure 115/55, respirations 16. CHEST: Clear to auscultation. CARDIOVASCULAR: S1, S2. ABDOMEN: Soft. LEGS: Left foot is erythematous status post incision and drainage on the dorsum. LABORATORY DATA: WBC 8.78, rest of the labs are reviewed. ASSESSMENT: 1. Sepsis, secondary to cellulitis of the left foot with possibly abscess secondary to puncture wound, status post incision and drainage. 2. History of MRSA. 3. Diabetes mellitus type 2, uncontrolled. 4. Acute on chronic renal failure. 5. Multiple complex medical issues. RECOMMENDATIONS: Recommended to continue current management, continue symptomatic treatment. Cultures are negative today. Continue with IV daptomycin. I would recommend to repeat labs and closely follow with Infectious Disease. Further recommendations to follow. Possible discharge in the next 24 to 48 hours. MMODL / IJN: [id number] /
--- NOTE | 2023-12-23 15:19 | P.PN ---
Subjective Progress Note Date: 12/23/23 Principal diagnosis: Reason for follow-up is left foot cellulitis concerning for possible abscess Patient is a 78-year-old male past medical history significant for diabetes mellitus hypertension [place] hypothyroidism COVID-19 presenting to the hospital for evaluation of left foot pain swelling and redness has been diagnosed with the left foot cellulitis, x-rays were negative for any bony changes or foreign body.Patient is status post evaluation by podiatry and did have I&D of the left foot small piece of fiberglass was removed did not mention any pocket of pus deep culture obtained which are currently pending. On today's evaluation that is 12/23/2023, Patient is afebrile patient is currently on room air and denies having any shortness of breath, the patient denies any chest pain or cough, the patient denies any nausea vomiting did not have any abdominal pain and no diarrhea, denies any worsening pain to the left foot. Patient white count is 8.78, creatinine is 1.5 cultures currently pending Objective - Vital Signs Vital signs: Vital Signs Temp 98.1 F 12/23/23 07:02 Pulse 62 12/23/23 07:02 Resp 16 12/23/23 07:02 BP 141/70 12/23/23 07:02 Pulse Ox 97 12/23/23 07:02 FiO2 21 12/20/23 11:10 Intake & Output 12/22/23 12/23/23 12/23/23 18:59 06:59 18:59 Intake Total 1260 590 Output Total 200 Balance 1260 390 Intake: Oral 1260 590 Output: Urine 200 - Exam GENERAL DESCRIPTION: An elderly male lying in bed in no distress RESPIRATORY SYSTEM: Unlabored breathing , decreased breath sounds at bases HEART: S1 S2 regular rate and rhythm , ABDOMEN: Soft , no tenderness EXTREMITIES: Left foot plantar aspect did have a small wound with some drainage on the dressing still having erythema on the dorsum aspect of the left foot - Labs CBC & Chem 7: 12/23/23 05:22 12/23/23 05:22 Labs: Abnormal Lab Results - Last 24 Hours (Table) 12/22/23 12/22/23 12/23/23 Range/Units 17:01 20:28 05:22 RBC 3.63 L (4.40-5.60) X 10*6/uL Hgb 12.2 L (13.0-17.0) g/dL Hct 36.0 L (39.6-50.0) % MCV 99.2 H (80.0-97.0) FL MCH 33.6 H (27.0-32.0) pg Immature Gran # 0.08 H (0.00-0.04) X 10*3/uL Est GFR (CKD-EPI) (>=60) Glucose (70-110) mg/dL POC Glucose (mg/dL) 166 H 190 H (70-110) mg/dL Calcium (8.7-10.3) mg/dL 12/23/23 12/23/23 12/23/23 Range/Units 05:22 07:02 11:59 RBC (4.40-5.60) X 10*6/uL Hgb (13.0-17.0) g/dL Hct (39.6-50.0) % MCV (80.0-97.0) FL MCH (27.0-32.0) pg Immature Gran # (0.00-0.04) X 10*3/uL Est GFR (CKD-EPI) 48 L (>=60) Glucose 139 H (70-110) mg/dL POC Glucose (mg/dL) 147 H 119 H (70-110) mg/dL Calcium 8.4 L (8.7-10.3) mg/dL Microbiology - Last 24 Hours (Table) 12/21/23 15:40 Gram Stain - Preliminary Foot - Left Wound Culture - Preliminary 12/19/23 01:45 Blood Culture - Preliminary Blood 12/19/23 02:10 Blood Culture - Preliminary Blood Assessment and Plan (1) Sepsis Current Visit: Yes Status: Acute Code(s): A41.9 - SEPSIS, UNSPECIFIED ORGANISM SNOMED Code(s): 25635979 (2) Leukocytosis Current Visit: Yes Status: Acute Code(s): D72.829 - ELEVATED WHITE BLOOD CELL COUNT, UNSPECIFIED SNOMED Code(s): 741514064 (3) Cellulitis of left foot Current Visit: Yes Status: Acute Code(s): L03.116 - CELLULITIS OF LEFT LOWER LIMB SNOMED Code(s): 10290552682443731 Plan: 1patient presented to hospital with sepsis in this patient who did have fever elevated white count source is left foot cellulitis in this patient did have diffuse swelling and redness and did have a puncture wound on the plantar aspect of the left foot at the base of the first metatarsal more likely source of entry of bacteria and cellulitis with initial concern for possible cellulitis but now forming more into an abscess and possible staphylococcal aureus infection 2-patient did have CT of the left foot with concern for small abscess patient has been evaluated by podiatry did have I&D of the removal of small piece of fiberglass and culture which are currently pending 3-patient has been advised to continue with IV daptomycin may need IV antibiotics on discharge as did have significant cellulitis with the discharge antibiotic on the basis of final culture multiple questions were answered Dictation was produced using [employer] dictation software. please excuse any grammatical, word or spelling errors. Time with Patient: Less than 30
[2023-12-23 17:00] LABS: Glucose,Whole Blood 157 mg/dL (70-110)
[2023-12-23 20:20] LABS: Glucose,Whole Blood 182 mg/dL (70-110)
[2023-12-24 07:31] LABS: Glucose,Whole Blood 136 mg/dL (70-110)
[2023-12-24 08:37] LABS: Basophils # (A) 0.07 X 10*3/uL (0.00-0.10); Basophils % (A) 0.7 %; Eosinophils # (A) 0.43 X 10*3/uL (0.04-0.35); Eosinophils % (A) 4.5 %; HCT 35.8 % (39.6-50.0); HGB 12.1 g/dL (13.0-17.0); Lymphocytes # (A) 1.75 X 10*3/uL (0.90-5.00); Lymphocytes % (A) 18.4 %; MCH 33.8 pg (27.0-32.0); MCHC 33.8 g/dL (32.0-37.0); Mean Platelet Volume 10.2 FL (9.5-12.2); Monocytes % (A) 10.5 %; NRBC Per 100 WBC 0 X 10*3/uL (0.00-0.01); Neutrophils # (A) 6.18 X 10*3/uL (1.80-7.70); Neutrophils % (A) 65.1 %; Platelet Count 250 X 10*3/uL (140-440); RBC 3.58 X 10*6/uL (4.40-5.60); RDW 11.4 % (11.5-14.5); WBC 9.51 X 10*3/uL (4.50-10.00)
--- NOTE | 2023-12-24 08:53 | P.PN ---
Progress Note - Text Progress Note Date: 12/24/23 HPI: Patient is seen resting comfortably at bedside today. Nursing is present during examination and debridement. Patient rates his pain as a 3 out of 10 to the left foot today. He feels that he is improving. He denies any current nausea, vomiting, fever, chills, shortness of breath, calf pain, chest pain. Lower extremity exam: Alert and oriented x 3, NAD VASc: DP and PT pulses are 2 out of 4 CFT less than 3 seconds to all digits Erythema and edema are improving. They are not as far proximal of the foot but he still has dark purple hue's to the first MPJ as well as plantarly and extending into the sulcus. Derm: Today patient had bulla to medial MPJ and plantar ball of the foot. An extensive debridement was performed today with sterile 15 blade. Residual ulceration was documented. None of this probe past the level of subcutaneous tissue. No tracking no undermining no deep abscess was appreciated. Postdebridement ulceration measures 8.0 x 4.0 x 0.2 cm. No purulent drainage was expressed. Surrounding erythema is noted. Photographs are in chart. Neuro: SWMF monofilament is a 6 out of 10 bilateral. Light touch sensation is intact to the forefoot. MSK: Left foot pain with palpation to the plantar foot and medial first metatarsal phalangeal joint. Strength is 5 out of 5 to all pedal muscle groups crossing ankle joint. No pain with calf pain. Calves are soft and supple. Assessment: 1. Cellulitis left foot 2. Left foot pain 3. Diabetes mellitus with peripheral neuropathy 4. Full-thickness ulceration plantar left foot Plan: -Cultures are all showing no growth. -Residual erythema is appreciated to the first MPJ and along the ball of the foot extending into the sulcus. -With patient verbal consent debridement was performed today. This was excisional, surgical debridement to the level of subcutaneous tissue. Debridement was performed with a sterile 15 blade as well as pickups and sterile scissors. Patient tolerated this without anesthesia. Extensive hyperkeratotic tissue was resected and fibrous tissue. We probed all areas and no signs of deep probing, tracking or undermining is appreciated. No purulent drainage was expressed. A dressing consisting of Betadine, dry gauze, Farheen, [place] bandage was applied. This is to be left intact. This is to be changed once daily by nursing. I discussed this with nursing in detail. Patient still has significant residual erythema and cellulitis. He is mildly improved. If patient were to be discharged I would recommend he is discharged home on IV antibiotics. Infectious diseases following closely for there and antibiotic recommendation. -Patient to follow-up with me 1 week postdischarge in [facility] wound [facility]. Maritza Valdes D.P.M., [facility] Podiatric Surgery
[2023-12-24 09:01] LABS: BUN/Creat Ratio 14.13 Ratio (12.00-20.00); Blood Urea Nitrogen 21.2 mg/dL (9.0-27.0); Calcium 8.7 mg/dL (8.7-10.3); Carbon Dioxide 23.1 mmol/L (21.6-31.8); Chloride 105 mmol/L (96-109); Glucose 145 mg/dL (70-110); Potassium 4.8 mmol/L (3.5-5.5); Sodium 138 mmol/L (135-145)
[2023-12-24 12:18] LABS: Glucose,Whole Blood 174 mg/dL (70-110)
[2023-12-24] MEDS: AMPICILLIN-SULBACTAM 3 GM in SODIUM CHLORIDE 0.9% 100 ML IVPB SCH ×2 (12:42→20:52)
--- NOTE | 2023-12-24 17:11 | P.PN ---
Subjective Progress Note Date: 12/24/23 H&P Date: 12/19/23 Chief Complaint: Left foot cellulitis Is a 78-year-old gentleman admitted with progressive left foot pain accompanied by redness, edema, and the patient with past medical history significant for obesity, diabetes mellitus, hypertension, CAD, [place], hypothyroidism, diverticulosis, prostate disorder, former nicotine dependence and multiple other medical issues. Reports Sunday developed some mild swelling and redness on the ball of his left foot without pain. Redness and edema continued worsening beginning to travel up his leg and by Sunday pain intensified, worsened by weightbearing. Denies drainage. denies trauma to the affected extremity. Denies fevers or chills. Denies lightheadedness, dizziness or focal deficits. EKG reported sinus rhythm with a right bundle branch block, left ante, troponin negative x 1 .denies chest pain, palpitations or shortness of breath. Maintaining O2 sats of mid 90s on room air. On admission afebrile, vital signs stable with elevated WBC of 14.7. Isolated fever developed shortly after adm ission, 100.6. Hemoglobin 13.6, platelets 183, MCV 102. Sodium 133, potassium 4.6, bicarb 19, BUN 29, creatinine 1.19. Blood sugars on admission 166, this morning 186. UA reported moderate leukocytes, negative nitrates, 12 WBCs. Left foot x-ray reported no acute fracture, dislocation, no suspicious bony distraction, joint spaces appear within normal limits. Arterial vascular calcification seen, tiny inferior calcaneal spur. Bony projection or enthesopathy posterior superior calcaneus at distal Achilles tendon insertion is noted. IV antibiotics initiated in the ER. 12/20/23 Uric Acid 3.9. Antibiotics adjusted by ID.currently on cefazolin. Foot improving.Afebrile.Labs pending.BS better controlled.Denies chest pain, palpitations or shortness of breath. 12/24/2023 evaluated by warehouse person surgery, radiology studies reviewed, underwent bedside I&D, wound culture sent. tolerated procedure well. Cultures currently showing no growth , anaerobic pending .tender, reports pain controlled. Blood sugars controlled. Continues on Unasyn. afebrile, normal WBC, maintaining O2 sats in the 90s on room air. BUN 21.2, creatinine 1.5, bicarb 23. Objective - Vital Signs Vital signs: Vital Signs Temp 97.9 F 12/24/23 12:12 Pulse 64 12/24/23 12:12 Resp 16 12/24/23 12:12 BP 170/74 12/24/23 12:12 Pulse Ox 94 L 12/24/23 12:12 FiO2 21 12/20/23 11:10 Intake & Output 12/23/23 12/24/23 12/24/23 18:59 06:59 18:59 Intake Total 590 660 Balance 590 660 Intake: Intake, IV Titration 660 Amount Sodium Chloride 0.9% 1, 660 000 ml @ 60 mls/hr IV . [id number] [facility] Rx#:[id number] Oral 590 Other: Voiding Method Toilet # Voids 2 - Exam PHYSICAL EXAM: VITAL SIGNS: [As above] GENERAL: Alert and oriented x 3, sitting up in bed, no acute distress HEENT: Normocephalic, atraumatic, conjunctivae normal. eyes normal. MMM. NECK: Supple, no JVD. CARDIOVASCULAR: S1, S2 regular. No murmur RESPIRATION: Unlabored, equal air entry, CTA ABDOMEN: Soft, nondistended, nontender . No guarding. no masses palpable. Bowel sounds heard. LEGS: Left lower extremity dressing clean dry and intact. NERVOUS SYSTEM: Cranial N 2-12 grossly normal. No focal deficits. Strength and sensation grossly intact. Skin: Warm and dry Microbiology 12/19/23 01:45 Blood Blood Culture - Final 12/19/23 02:10 Blood Blood Culture - Final 12/21/23 15:40 Foot - Left Anaerobic Culture - Preliminary 12/21/23 15:40 Foot - Left Gram Stain - Final 12/21/23 15:40 Foot - Left Wound Culture - Final - Labs CBC & Chem 7: 12/24/23 05:25 12/24/23 05:25 Labs: Abnormal Lab Results - Last 24 Hours (Table) 12/23/23 12/24/23 12/24/23 Range/Units 20:18 05:25 05:25 RBC 3.58 L (4.40-5.60) X 10*6/uL Hgb 12.1 L (13.0-17.0) g/dL Hct 35.8 L (39.6-50.0) % MCV 100.0 H (80.0-97.0) FL MCH 33.8 H (27.0-32.0) pg RDW 11.4 L (11.5-14.5) % Immature Gran # 0.08 H (0.00-0.04) X 10*3/uL Eosinophils # 0.43 H (0.04-0.35) X 10*3/uL Est GFR (CKD-EPI) 48 L (>=60) Glucose 145 H (70-110) mg/dL POC Glucose (mg/dL) 182 H (70-110) mg/dL 12/24/23 12/24/23 Range/Units 07:30 12:17 RBC (4.40-5.60) X 10*6/uL Hgb (13.0-17.0) g/dL Hct (39.6-50.0) % MCV (80.0-97.0) FL MCH (27.0-32.0) pg RDW (11.5-14.5) % Immature Gran # (0.00-0.04) X 10*3/uL Eosinophils # (0.04-0.35) X 10*3/uL Est GFR (CKD-EPI) (>=60) Glucose (70-110) mg/dL POC Glucose (mg/dL) 136 H 174 H (70-110) mg/dL Microbiology - Last 24 Hours (Table) 12/19/23 01:45 Blood Culture - Final Blood 12/19/23 02:10 Blood Culture - Final Blood 12/21/23 15:40 Anaerobic Culture - Preliminary Foot - Left 12/21/23 15:40 Gram Stain - Final Foot - Left Wound Culture - Final Assessment and Plan Assessment: Sepsis secondary to cellulitis of left foot, full-thickness ulceration plantar left foot. Left foot x-ray reports bony projection or enthesopathy posterior superior calcaneus at distal Achilles tendon. Status post I&D, anaerobic culture pending History of MRSA Diabetes mellitus type 2, uncontrolled, hemoglobin A1c 7.3 Obesity, BMI 35 Acute on Chronic renal failure III, baseline 1.1-1.2,vancomycin induced. Hypothyroidism CAD, history of [place] Hypertension Hyperlipidemia History of CVA Former nicotine dependence Plan: Continue on current medication resume ,monitoring and symptomatic treatment. Antibx. as per ID.anaerobic culture finalizing. continue avoiding weightbearing of left foot. Avoid nephrotoxins.tight blood sugar control with close monitoring of Accu-Cheks. Discharge planning in progress pending finalization of cultures, final DC recommendations and clearance per ID. The impression and plan of care has been dictated as directed. : I performed a history and examination of this patient, discussed the same with the dictator. I agree with the dictator's note ,documented as a scribe. Any additional findings or plans will be noted.
[2023-12-24 17:51] LABS: Glucose,Whole Blood 155 mg/dL (70-110)
--- NOTE | 2023-12-24 18:05 | P.PN ---
Subjective Progress Note Date: 12/24/23 Principal diagnosis: Reason for follow-up is left foot cellulitis concerning for possible abscess Patient is a 78-year-old male past medical history significant for diabetes mellitus hypertension [place] hypothyroidism COVID-19 presenting to the hospital for evaluation of left foot pain swelling and redness has been diagnosed with the left foot cellulitis, x-rays were negative for any bony changes or foreign body.Patient is status post evaluation by podiatry and did have I&D of the left foot small piece of fiberglass was removed did not mention any pocket of pus deep culture obtained which are currently pending. On today's evaluation that is 12/24/2023, patient has been afebrile, patient is breathing comfortably and is currently on room air, patient denies having any significant cough no chest pain shortness of breath, patient denies nausea vomiting or diarrhea and no abdominal pain patient denies any worsening pain to the left foot. Patient white count is 9.51 creatinine is 1.5 cultures have been negative Objective - Vital Signs Vital signs: Vital Signs Temp 98.1 F 12/24/23 07:25 Pulse 65 12/24/23 07:25 Resp 16 12/24/23 07:25 BP 152/78 12/24/23 07:25 Pulse Ox 95 12/24/23 07:25 FiO2 21 12/20/23 11:10 Intake & Output 12/23/23 12/24/23 12/24/23 18:59 06:59 18:59 Intake Total 590 660 Balance 590 660 Intake: Intake, IV Titration 660 Amount Sodium Chloride 0.9% 1, 660 000 ml @ 60 mls/hr IV . [id number][id number] Oral 590 Other: Voiding Method Toilet # Voids 2 - Exam GENERAL DESCRIPTION: An elderly male lying in bed in no distress RESPIRATORY SYSTEM: Unlabored breathing , decreased breath sounds at bases HEART: S1 S2 regular rate and rhythm , ABDOMEN: Soft , no tenderness EXTREMITIES: Left foot plantar wound is currently dressed looking at the picture taken by the patient this morning overall swelling redness has decreased - Labs CBC & Chem 7: 12/24/23 05:25 12/24/23 05:25 Labs: Abnormal Lab Results - Last 24 Hours (Table) 12/23/23 12/23/23 12/23/23 Range/Units 11:59 16:58 20:18 RBC (4.40-5.60) X 10*6/uL Hgb (13.0-17.0) g/dL Hct (39.6-50.0) % MCV (80.0-97.0) FL MCH (27.0-32.0) pg RDW (11.5-14.5) % Immature Gran # (0.00-0.04) X 10*3/uL Eosinophils # (0.04-0.35) X 10*3/uL Est GFR (CKD-EPI) (>=60) Glucose (70-110) mg/dL POC Glucose (mg/dL) 119 H 157 H 182 H (70-110) mg/dL 12/24/23 12/24/23 12/24/23 Range/Units 05:25 05:25 07:30 RBC 3.58 L (4.40-5.60) X 10*6/uL Hgb 12.1 L (13.0-17.0) g/dL Hct 35.8 L (39.6-50.0) % MCV 100.0 H (80.0-97.0) FL MCH 33.8 H (27.0-32.0) pg RDW 11.4 L (11.5-14.5) % Immature Gran # 0.08 H (0.00-0.04) X 10*3/uL Eosinophils # 0.43 H (0.04-0.35) X 10*3/uL Est GFR (CKD-EPI) 48 L (>=60) Glucose 145 H (70-110) mg/dL POC Glucose (mg/dL) 136 H (70-110) mg/dL Microbiology - Last 24 Hours (Table) 12/21/23 15:40 Anaerobic Culture - Preliminary Foot - Left 12/21/23 15:40 Gram Stain - Final Foot - Left Wound Culture - Final Assessment and Plan (1) Sepsis Current Visit: Yes Status: Acute Code(s): A41.9 - SEPSIS, UNSPECIFIED ORGANISM SNOMED Code(s): 26253547 (2) Leukocytosis Current Visit: Yes Status: Acute Code(s): D72.829 - ELEVATED WHITE BLOOD CELL COUNT, UNSPECIFIED SNOMED Code(s): 480007479 (3) Cellulitis of left foot Current Visit: Yes Status: Acute Code(s): L03.116 - CELLULITIS OF LEFT LOWER LIMB SNOMED Code(s): 78858783037442609 Plan: 1patient presented to hospital with sepsis in this patient who did have fever elevated white count source is left foot cellulitis in this patient did have diffuse swelling and redness and did have a puncture wound on the plantar aspect of the left foot at the base of the first metatarsal more likely source of entry of bacteria and cellulitis with initial concern for possible cellulitis but now forming more into an abscess and possible staphylococcal aureus infection 2-patient did have CT of the left foot with concern for small abscess patient h as been evaluated by podiatry did have I&D of the removal of small piece of fiberglass and culture which are so far negative and resistant pathogen 3-I will discontinue Comycin as no MRSA has been grown in the culture we will start patient on Unasyn 3 g every 6 hours reevaluate the foot and the wound tomorrow if overall improvement plan is to finish therapy with oral Augmentin multiple question concern answered Dictation was produced using [employer] dictation software. please excuse any grammatical, word or spelling errors. Time with Patient: Less than 30
[2023-12-24 20:31] LABS: Glucose,Whole Blood 179 mg/dL (70-110)
[2023-12-24] MEDS: SENNOSIDES 8.6 MG TAB PO SCH (20:52)
[2023-12-25 07:45] LABS: Glucose,Whole Blood 147 mg/dL (70-110)
[2023-12-25] MEDS: polyethylene glycoL 3350 17 GM POWD.PACK PO SCH (08:35)
[2023-12-25] MEDS: SENNOSIDES-DOCUSATE SODIUM 1 EACH TAB PO SCH (08:41)
[2023-12-25 12:50] LABS: Glucose,Whole Blood 156 mg/dL (70-110)
--- NOTE | 2023-12-25 14:22 | P.PN ---
Subjective Progress Note Date: 12/25/23 Principal diagnosis: Reason for follow-up is left foot cellulitis concerning for possible abscess Patient is a 78-year-old male past medical history significant for diabetes mellitus hypertension [place] hypothyroidism COVID-19 presenting to the hospital for evaluation of left foot pain swelling and redness has been diagnosed with the left foot cellulitis, x-rays were negative for any bony changes or foreign body.Patient is status post evaluation by podiatry and did have I&D of the left foot small piece of fiberglass was removed did not mention any pocket of pus deep culture obtained which are currently pending. On today's evaluation that is 12/25/2023, Patient is afebrile this morning and denies any chills, patient mention breathing comfortably and is currently on room air, patient denies any chest pain occasional cough patient denies any abdominal pain no diarrhea no nausea no vomiting, denies pain to the left foot overall swelling redness improved no drainage. No new lab has been obtained today culture remains to be negative Objective - Vital Signs Vital signs: Vital Signs Temp 97.9 F 12/25/23 07:39 Pulse 64 12/25/23 07:39 Resp 16 12/25/23 07:39 BP 153/86 12/25/23 07:39 Pulse Ox 97 12/25/23 07:39 FiO2 21 12/20/23 11:10 Intake & Output 12/24/23 12/25/23 12/25/23 18:59 06:59 18:59 Intake Total 240 Balance 240 Intake: Oral 240 Other: Voiding Method Toilet # Voids 3 1 - Exam GENERAL DESCRIPTION: An elderly male lying in bed in no distress RESPIRATORY SYSTEM: Unlabored breathing , decreased breath sounds at bases HEART: S1 S2 regular rate and rhythm , ABDOMEN: Soft , no tenderness EXTREMITIES: Left foot plantar wound has decreased in size no drainage, left foot dorsum redness has decreased - Labs CBC & Chem 7: 12/24/23 05:25 12/24/23 05:25 Labs: Abnormal Lab Results - Last 24 Hours (Table) 12/24/23 12/24/23 12/24/23 Range/Units 12:17 17:50 20:29 POC Glucose (mg/dL) 174 H 155 H 179 H (70-110) mg/dL 12/25/23 Range/Units 07:42 POC Glucose (mg/dL) 147 H (70-110) mg/dL Microbiology - Last 24 Hours (Table) 12/19/23 01:45 Blood Culture - Final Blood 12/19/23 02:10 Blood Culture - Final Blood Assessment and Plan (1) Sepsis Current Visit: Yes Status: Acute Code(s): A41.9 - SEPSIS, UNSPECIFIED ORGANISM SNOMED Code(s): 43053578 (2) Leukocytosis Current Visit: Yes Status: Acute Code(s): D72.829 - ELEVATED WHITE BLOOD CELL COUNT, UNSPECIFIED SNOMED Code(s): 528937854 (3) Cellulitis of left foot Current Visit: Yes Status: Acute Code(s): L03.116 - CELLULITIS OF LEFT LOWER LIMB SNOMED Code(s): 22849204066881288 Plan: 1patient presented to hospital with sepsis in this patient who did have fever elevated white count source is left foot cellulitis in this patient did have diffuse swelling and redness and did have a puncture wound on the plantar aspect of the left foot at the base of the first metatarsal more likely source of entry of bacteria and cellulitis with initial concern for possible cellulitis but now forming more into an abscess and possible staphylococcal aureus infection 2-patient did have CT of the left foot with concern for small abscess patient has been evaluated by podiatry did have I&D of the removal of small piece of fiberglass and culture which are so far negative and resistant pathogen 3-patient seem to have shown overall improvement on Unasyn we will finish therapy with oral Augmentin prescription sent to the pharmacy local wound care with a dry Aquacel silver dressing change every 48 hours also advised front offloading shoe, all question concern answered in layman terms Dictation was produced using [employer] dictation software. please excuse any grammatical, word or spelling errors. Time with Patient: Less than 30
[2023-12-25 14:31] VITALS: BP 174/85; PULSE 60; RESP 17; TEMP 97.6
--- NOTE | 2023-12-26 08:40 | P.DS ---
Providers Date of admission: 12/19/23 01:55 Expected date of discharge: 12/26/23 Attending physician: Alan Butler Consults: 12/19/23 16:47 Consult Physician Routine Consulting Provider: Yodit Holm Consult Reason/Comments: cellulitis Left foot, history of MRSA, CKD III Do you want consulting provider notified?: Yes 12/21/23 11:56 Consult Physician Routine Consulting Provider: Maritza Valdes Consult Reason/Comments: Left foot abscess for draiange and deep cultures Do you want consulting provider notified?: Yes Primary care physician: Alan Butler [facility] Course: Final Diagnoses: Sepsis secondary to cellulitis of left foot, full-thickness ulceration plantar left foot. Left foot x-ray reports bony projection or enthesopathy posterior superior calcaneus at distal Achilles tendon. Status post I&D, cultures currently negative. History of MRSA Diabetes mellitus type 2, uncontrolled, hemoglobin A1c 7.3 Obesity, BMI 35 Acute on Chronic renal failure III, baseline 1.1-1.2,vancomycin induced. Hypothyroidism CAD, history of CT Hypertension Hyperlipidemia History of CVA Former nicotine dependence Hospital course: This is a 78-year-old gentleman admitted with progressive left foot pain accompanied by redness, edema, and the patient with past medical history significant for obesity, diabetes mellitus, hypertension, CAD, [place], hypothyroidism, diverticulosis, prostate disorder, former nicotine dependence and multiple other medical issues. Reports Sunday developed some mild swelling and redness on the ball of his left foot without pain. Redness and edema continued worsening beginning to travel up his leg and by Sunday pain intensified, worsened by weightbearing. Denies drainage. denies trauma to the affected extremity. Denies fevers or chills. Denies lightheadedness, dizziness or focal deficits. EKG reported sinus rhythm with a right bundle branch block, left ante, troponin negative x 1 .denies chest pain, palpitations or shortness of breath. Maintaining O2 sats of mid 90s on room air. On admission afebrile, vital signs stable with elevated WBC of 14.7. Isolated fever developed shortly after admission, 100.6. Hemoglobin 13.6, platelets 183, MCV 102. Sodium 133, potassium 4.6, bicarb 19, BUN 29, creatinine 1.19. Blood sugars on admission 166, this morning 186. UA reported moderate leukocytes, negative nitrates, 12 WBCs. Left foot x-ray reported no acute fracture, dislocation, no suspicious bony distraction, joint spaces appear within normal limits. Arterial vascular calcification seen, tiny inferior calcaneal spur. Bony projection or enthesopathy posterior superior calcaneus at distal Achilles tendon insertion is noted. IV antibiotics initiated in the ER. 12/20/23 Uric Acid 3.9. Antibiotics adjusted by ID.currently on cefazolin. Foot improving.Afebrile.Labs pending.BS better controlled.Denies chest pain, palpitations or shortness of breath. 12/24/2023 evaluated by smoking pipe liner surgery, radiology studies reviewed, underwent bedside I&D, wound culture sent. tolerated procedure well. Cultures currently showing no growth , anaerobic pending .tender, reports pain controlled. Blood sugars controlled. Continues on Unasyn. afebrile, normal WBC, maintaining O2 sats in the 90s on room air. BUN 21.2, creatinine 1.5, bicarb 23. Antibx. as per ID.anaerobic culture finalizing. continue avoiding weightbearing of left foot. Avoid nephrotoxins.tight blood sugar control with close monitoring of Accu-Cheks. Discharge planning in progress pending finalization of cultures, final DC recommendations and clearance per ID. 7024. Significant clinical improvement. Afebrile, denies chest pain, palpitations or shortness of breath. Maintaining O2 sats in the 90s on room air. Continues on IV antibiotics as per ID with no nausea vomiting or diarrhea. Denies abdominal pain. Denies left foot pain. Left foot dressing clean dry and intact. Cultures remains negative. Patient will be discharged home today in a stable condition with guarded prognosis pending final DC recommendations/antibiotics/local wound care and clearance per ID. Offloading shoe reinforced. The impression and plan of care has been dictated as directed. : I performed a history and examination of this patient, discussed the same with the dictator. I agree with the dictator's note ,documented as a scribe. Any additional findings or plans will be noted. Patient Condition at Discharge: Stable Plan - Discharge Summary Discharge Rx Participant: Yes New Discharge Prescriptions: New polyethylene glycoL 3350 [Miralax] 17 gm PO DAILY packet Sennosides-Docusate Sodium [Senokot-S] 2 each PO BID tab traMADol HCl [Ultram] 50 mg PO Q8H PRN #9 tab PRN Reason: Pain/Discomfort Amoxic-Pot Clav 875-125Mg [Augmentin 875-125] 1 tab PO BID 10 Days #20 tab Continue metFORMIN HCL 500 mg PO BID@0800,2099 Sertraline [Zoloft] 50 mg PO DAILY@0800 Levothyroxine Sodium [Synthroid] 175 mcg PO DAILY@0800 Cyanocobalamin [Vitamin B-12] 500 mcg PO DAILY@0900 Ascorbic Acid [Vitamin C] 500 mg PO DAILY@0900 Multivitamins, Thera [Multivitamin (formulary)] 1 tab PO DAILY@0900 Trospium Chloride 20 mg PO BID@0800,2100 Tamsulosin HCl [Flomax] 0.4 mg PO HS@2100 Ezetimibe [Zetia] 10 mg PO DAILY@0800 Benazepril [Lotensin] 10 mg PO DAILY@0800 Metoprolol Tartrate [Lopressor] 12.5 mg PO HS@2100 Aspirin [Adult Low Dose Aspirin EC] 81 mg PO HS@2100 Zinc Gluconate [Zinc] 50 mg PO DAILY@0900 Vitamin E Mixed [Vitamin E] 1,000 unit PO DAILY@0900 L.acidoph,Paracasei, B.lactis [Probiotic] 1 cap PO DAILY@0900 Cinnamon Bark [Cinnamon] 500 mg PO DAILY@0900 Loratadine [Claritin] 10 mg PO HS@2100 Esomeprazole Magnesium [NexIUM] 20 mg PO DAILY@0800 No Action Atorvastatin [Lipitor] 40 mg PO HS@2100 Discharge Medication List Ezetimibe [Zetia] 10 mg PO DAILY@0800 03/31/21 [History] Tamsulosin HCl [Flomax] 0.4 mg PO HS@209903/31/21 [History] metFORMIN HCL 500 mg PO BID@0800,2100 03/31/21 [History] Ascorbic Acid [Vitamin C] 500 mg PO DAILY@0900 12/19/23 [History] Aspirin [Adult Low Dose Aspirin EC] 81 mg PO HS@209912/19/23 [History] Atorvastatin [Lipitor] 40 mg PO HS@209912/19/23 [History] Benazepril [Lotensin] 10 mg PO DAILY@0800 12/19/23 [History] Cinnamon Bark [Cinnamon] 500 mg PO DAILY@0912/19/23 [History] Cyanocobalamin [Vitamin B-12] 500 mcg PO DAILY@89912/19/23 [History] Esomeprazole Magnesium [NexIUM] 20 mg PO DAILY@79912/19/23 [History] L.acidoph,Paracasei, B.lactis [Probiotic] 1 cap PO DAILY@89912/19/23 [History] Levothyroxine Sodium [Synthroid] 175 mcg PO DAILY@79912/19/23 [History] Loratadine [Claritin] 10 mg PO HS@209912/19/23 [History] Metoprolol Tartrate [Lopressor] 12.5 mg PO HS@209912/19/23 [History] Multivitamins, Thera [Multivitamin (formulary)] 1 tab PO DAILY@89912/19/23 [History] Sertraline [Zoloft] 50 mg PO DAILY@79912/19/23 [History] Trospium Chloride 20 mg PO BID@799,209912/19/23 [History] Vitamin E Mixed [Vitamin E] 1,000 unit PO DAILY@89912/19/23 [History] Zinc Gluconate [Zinc] 50 mg PO DAILY@89912/19/23 [History] Amoxic-Pot Clav 875-125Mg [Augmentin 875-125] 1 tab PO BID 10 Days #20 tab 12/25/23 [Rx] Sennosides-Docusate Sodium [Senokot-S] 2 each PO BID tab 12/25/23 [Rx] polyethylene glycoL 3350 [Miralax] 17 gm PO DAILY packet 12/25/23 [Rx] traMADol HCl [Ultram] 50 mg PO Q8H PRN #9 tab 12/25/23 [Rx] Follow up Appointment(s)/Referral(s): Alan Butler DO [Primary Care Provider] - 01/01/24 1:20 pm (appointment with El[facility]) [facility] [[facility]STAFF] - As Needed ([place]WAIT[place] APPROVAL) Maritza Valdes DPM [STAFF PHYSICIAN] - 1 Week (The clinic will call with a follow up appointment. Patient to follow-up at [facility]. [phone] ) Yodit Holm MD [STAFF PHYSICIAN] - 01/02/24 2:30 pm () Patient Instructions/Handouts: Amoxicillin/Clavulanate Potassium (By mouth), Tramadol (By mouth) Activity/Diet/Wound Care/Special Instructions: apply dry opticell silver ever 2 days, cover with gauze, and apply HANNA wrap apply dry opticell silver, white 4x4 gauze, then HANNA wrap Discharge Disposition: HOME SELF-CARE
== END 2023-12-25 15:05 | disposition home or self-care (01) | DRG 854 ==
LOC: EC 23:06 → 4SSUR 12-19 01:55 → 5NMEDONC 12-19 05:40
PROVIDERS: ADMIT Family Medicine; ATTEND Family Medicine
PROC: 0JBR0ZZ Excision of Left Foot Subcutaneous Tissue and Fascia, Open Approach (ICD-10-PCS; principal; 2023-12-19)
DX: A41.9 Sepsis, unspecified organism (principal); I45.2 Bifascicular block; L03.116 Cellulitis of left lower limb; L03.115 Cellulitis of right lower limb; N17.9 Acute kidney failure, unspecified; E11.628 Type 2 diabetes mellitus with other skin complications; E11.22 Type 2 diabetes mellitus with diabetic chronic kidney disease; I12.9 Hypertensive chronic kidney disease with stage 1 through stage 4 chronic kidney disease, or unspecified chronic kidney disease; L97.529 Non-pressure chronic ulcer of other part of left foot with unspecified severity; T36.8X5A Adverse effect of other systemic antibiotics, initial encounter; X58.XXXA Exposure to other specified factors, initial encounter; E11.42 Type 2 diabetes mellitus with diabetic polyneuropathy; E11.621 Type 2 diabetes mellitus with foot ulcer; E11.65 Type 2 diabetes mellitus with hyperglycemia; L40.9 Psoriasis, unspecified; E78.5 Hyperlipidemia, unspecified; Z87.19 Personal history of other diseases of the digestive system; Z79.890 Hormone replacement therapy; I25.2 Old myocardial infarction; E66.01 Morbid (severe) obesity due to excess calories; E03.9 Hypothyroidism, unspecified; M77.52 Other enthesopathy of left foot and ankle; I25.10 Atherosclerotic heart disease of native coronary artery without angina pectoris; N18.30 Chronic kidney disease, stage 3 unspecified; N40.0 Benign prostatic hyperplasia without lower urinary tract symptoms; Z68.35 Body mass index [BMI] 35.0-35.9, adult; Z79.82 Long term (current) use of aspirin; Z79.84 Long term (current) use of oral hypoglycemic drugs; Z79.899 Other long term (current) drug therapy; Z82.49 Family history of ischemic heart disease and other diseases of the circulatory system; Z86.14 Personal history of Methicillin resistant Staphylococcus aureus infection; Z86.16 Personal history of COVID-19; Z86.73 Personal history of transient ischemic attack (TIA), and cerebral infarction without residual deficits; Z87.891 Personal history of nicotine dependence; Z90.49 Acquired absence of other specified parts of digestive tract; Z98.42 Cataract extraction status, left eye
CPT/HCPCS: 36415; 80048; 80053; 81001; 83036; 83605; 83735; 83880; 84100; 84484; 84550; 85025; 85610; 85730; 86140; 87040; 87070; 87075; 87205; 93005; 94760; 96365; 96366; 96367; 96375; 99285

== ENCOUNTER 2024-11-13 15:02 | Emergency (ER) | payer MEDICARE, OTHER ==
[2024-11-13] MEDS: HYDROcodone/APAP 5-325MG 1 EACH TAB PO STA (15:42)
[2024-11-13] MEDS: DIPH,PERTUS(ACELL)TETVAC-LF 0.5 ML VIAL IM ONE (15:43)
[2024-11-13] MEDS: LIDOCAINE 4% PATCH TOPICAL ONE (15:45)
--- NOTE | 2024-11-13 16:02 | ED ---
General Adult HPI - General Chief complaint: Fall Stated complaint: fall, back pain Time Seen by Provider: 11/13/24 15:25 Source: patient, RN notes reviewed, old records reviewed Mode of arrival: ambulatory Limitations: no limitations - History of Present Illness Initial comments: Patient is a 78-year-old male with past medical history remarkable for diabetes, hypertension, prostate disorder, thyroid disorder. Patient had a mechanical fall at home while weed whacking. Fell backwards into his stairs. Stumbled backwards and landed on his back on the cement block by the drainage area. He has pain to his low lumbar spine and coccyx area. Patient has been ambulatory. States primary concern is pain at that site with some bruising and abrasion. Denies any saddle paresthesias, lower extremity weakness, urinary or bowel incontinence or retention. Fall occurred approximately an hour ago. Did not hit his head. Did not lose consciousness. Has no other injuries. Presents for further evaluation at this time. Is not on blood thinners.Fall occurred approximately an hour to 2 hours prior to arrival. - Related Data Home Medications Medication Instructions Recorded Confirmed Ezetimibe [Zetia] 10 mg PO DAILY@0800 03/31/21 12/19/23 Tamsulosin HCl [Flomax] 0.4 mg PO HS@209903/31/21 12/19/23 metFORMIN HCL 500 mg PO BID@799,209903/31/21 12/19/23 Ascorbic Acid [Vitamin C] 500 mg PO DAILY@89912/19/23 12/19/23 Aspirin [Adult Low Dose Aspirin EC] 81 mg PO HS@209912/19/23 12/19/23 Atorvastatin [Lipitor] 40 mg PO HS@209912/19/23 12/19/23 Benazepril [Lotensin] 10 mg PO DAILY@79912/19/23 12/19/23 Cinnamon Bark [Cinnamon] 500 mg PO DAILY@89912/19/23 12/19/23 Cyanocobalamin [Vitamin B-12] 500 mcg PO DAILY@89912/19/23 12/19/23 Esomeprazole Magnesium [NexIUM] 20 mg PO DAILY@79912/19/23 12/19/23 L.acidoph,Paracasei, B.lactis 1 cap PO DAILY@89912/19/23 12/19/23 [Probiotic] Levothyroxine Sodium [Synthroid] 175 mcg PO DAILY@0812/19/23 12/19/23 Loratadine [Claritin] 10 mg PO HS@209912/19/23 12/19/23 Metoprolol Tartrate [Lopressor] 12.5 mg PO HS@209912/19/23 12/19/23 Multivitamins, Thera [Multivitamin 1 tab PO DAILY@0912/19/23 12/19/23 (formulary)] Sertraline [Zoloft] 50 mg PO DAILY@0812/19/23 12/19/23 Trospium Chloride 20 mg PO BID@0800,209912/19/23 12/19/23 Vitamin E Mixed [Vitamin E] 1,000 unit PO DAILY@0912/19/23 12/19/23 Zinc Gluconate [Zinc] 50 mg PO DAILY@0912/19/23 12/19/23 Previous Rx's Medication Instructions Recorded Amoxic-Pot Clav 875-125Mg 1 tab PO BID 10 Days #20 tab 12/25/23 [Augmentin 875-125] Sennosides-Docusate Sodium 2 each PO BID tab 12/25/23 [Senokot-S] polyethylene glycoL 3350 [Miralax] 17 gm PO DAILY packet 12/25/23 traMADol HCl [Ultram] 50 mg PO Q8H PRN #9 tab 12/25/23 Allergies Allergy/AdvReac Type Severity Reaction Status Date / Time No Known Allergies Allergy Verified 11/13/24 15:20 Review of Systems ROS Statement: Those systems with pertinent positive or pertinent negative responses have been documented in the HPI. Review of Systems: CONST: Denies fever EYES: Denies blurry vision ENT: Denies nasal congestion C/V: Denies Chest pain RESP: Denies shortness of breath GI: Denies abdominal pain : Denies dysuria SKIN: Endorses low back bruising and abrasions MSK: Endorses low back pain NEURO: Denies headache ROS Other: All systems not noted in ROS Statement are negative. Past Medical History Past Medical History: Diabetes Mellitus, Hypertension, Musculoskeletal Disorder, Prostate Disorder, Thyroid Disorder Additional Past Medical History / Comment(s): covid May 2020,CONCUSSION 2014; PSORIASES, HEMORRHOIDS, LT SHOULDER IMPINGMENT SYNDROME,THRYOID NODLUE ;BPH,SCIATICA Last Myocardial Infarction Date:: 03/03/2017 History of Any Multi-Drug Resistant Organisms: MRSA Date of last positivie culture/infection: 2014 MDRO Source:: Buttocks Past Surgical History: Cholecystectomy, Heart Catheterization With Stent, Hernia Repair Additional Past Surgical History / Comment(s): thyroidectomy, RK LASIK, COLONOSCOPY, LT INGUINAL HERNIA, UMBILICAL HERNIA,lt cataract Past Anesthesia/Blood Transfusion Reactions: No Reported Reaction Date of Last Stent Placement:: 2016 Past Psychological History: No Psychological Hx Reported Smoking Status: Never smoker Past Alcohol Use History: Rare Past Drug Use History: None Reported - Past Family History Mother Family Medical History: Liver Disease Additional Family Medical History / Comment(s): MOM WHEN PT WAS 9 YEARS OLD FROM CIRRHOSIS Father Family Medical History: Myocardial Infarction ([place]) Additional Family Medical History / Comment(s): AGE 69 FROM [place] General Exam - General Exam Comments Initial Comments: General: Appears in no acute distress. HEAD: Normal with no signs of head trauma. Negative Kohler sign. Negative raccoon eyes. EYES: PERRLA, EOMI, conjunctiva normal, no discharge. Pupils are 3 mm and equal bilaterally. ENT: Hearing grossly intact, normal oropharynx. RESPIRATORY: Clear breath sounds bilaterally. No wheezes, rales, or rhonchi. C/V: Regular rate and rhythm. S1 and S2 auscultated, peripheral pulses 2+ and intact throughout ABD: Abd is soft, nontender, nondistended EXT: Normal range of motion, no obvious deformity. No midline tenderness palpation of the cervical or thoracic spine. Mild midline tenderness palpation of the lower lumbar L5 and coccyx and sacrum region. No obvious step-offs or deformities appreciated. Some edema over this area with some bruising and a superficial abrasion that is not bleeding. This is all secondary to the fall. Pelvis is stable. SKIN: Abrasions and bruising over the inferior aspect of the lumbar spine as well as the left posterior pelvis and coccygeal region. NEURO: Alert and oriented x 4. Cranial nerves II-XII intact. No focal sensory or strength deficits. GCS of 15. Limitations: no limitations Course Vital Signs 11/13/24 11/13/24 15:15 17:26 Temperature 97.8 F 98 F Pulse Rate 85 80 Respiratory 22 20 Rate Blood Pressure 137/77 130/86 O2 Sat by Pulse 98 98 Oximetry Medical Decision Making - Medical Decision Making Was pt. sent in by a medical professional or institution (, [facility], [facility], urgent care, hospital, or skilled nursing...) When possible be specific @ -No Did you speak to anyone other than the patient for history (EMS, parent, family, police, friend...)? What history was obtained from this source @ -No Did you review nursing and triage notes (agree or disagree)? Why? @ -I reviewed and agree with nursing and triage notes Were old charts reviewed (outside hosp., previous admission, EMS record, old EKG, old radiological studies, urgent care reports/EKG's, skilled nursing records)? Report findings @ -No old charts were reviewed Differential Diagnosis (chest pain, altered mental status, abdominal pain women, abdominal pain men, vaginal bleeding, weakness, fever, dyspnea, syncope, headache, dizziness, GI bleed, back pain, seizure, CVA, palpatations, mental health, musculoskeletal)? @ -Differential Musculoskeletal Muscular strain, contusion, ligament sprain, fracture, arthritis, septic arthritis, bursitis, cellulitis, muscle spasm, nerve compression, DVT, arterial occlusion, herpes zoster, electrolyte abnormality, tumor.... This is not meant to be in all inclusive list EKG interpreted by me (3pts min.). @ -None done X-rays interpreted by me (1pt min.). @ -None done CT interpreted by me (1pt min.). @ -CT pelvis and lumbar spine negative for any obvious acute traumatic injury. Patient has chronic degenerative changes of the lumbar spine and pelvis U/S interpreted by me (1pt. min.). @ -None done What testing was considered but not performed or refused? (CT, X-rays, U/S, labs)? Why? @ -None What meds were considered but not given or refused? Why? @ -None Did you discuss the management of the patient with other professionals (professionals i.e. [facility], [facility], lab, RT, psych nurse, social media director, direct support worker, teacher, loan officer, insurance case manager)? Give summary @ -No Was smoking cessation discussed for >3mins.? @ -No Was critical care preformed (if so, how long)? @ -No Were there social determinants of health that impacted care today? How? (Homelessness, low income, unemployed, alcoholism, drug addiction, transportation, low edu. Level, literacy, decrease access to med. care, halfway, rehab)? @ -No Was there de-escalation of care discussed even if they declined (Discuss DNR or withdrawal of care, Hospice)? DNR status @ -No What co-morbidities impacted this encounter? (DM, HTN, Smoking, COPD, CAD, Cancer, CVA, ARF, Chemo, Hep., AIDS, mental health diagnosis, sleep apnea, morbid obesity)? @ -None Was patient admitted / discharged? Hospital course, mention meds given and route, prescriptions, significant lab abnormalities, going to OR and other per tinent info. @ -Patient presents for a mechanical fall. Is not on blood thinners. Only obvious injuries to the inferior aspect of the lumbar spine in the posterior sacrum and coccygeal region. We will obtain CT imaging of the lumbar spine and pelvis. He will be administered analgesia medications as well as a tetanus booster. He was in agreement this plan. Has a superficial abrasion at the site of the bruising. Vitals are within acceptable limits. No red flag symptoms to be concern for cauda equina syndrome. CT imaging returned negative for any obvious acute process. I updated patient he will be discharged home. He is following up with his spine orthopedic surgeon Dr. Fontenot in approximately a week. He can discuss any complications at that time. Strict return precautions discussed. I will provide the patient with a prescription for starter pack of Tylenol 3. I instructed the patient to follow up with their PCP in the next 1-3 days. I provided contact information for follow up with his surgeon Dr. fontenot. I explained that the patient should return to the emergency department if they experience any worsening symptoms. Strict return precautions were discussed with the patient. The patient expressed understanding of these instructions. I answered all questions that the patient had. The patient was discharged home in good condition with their prescriptions and follow up information. Undiagnosed new problem with uncertain prognosis? @ -No Drug Therapy requiring intensive monitoring for toxicity (Heparin, Nitro, Insulin, Cardizem)? @ -No Were any procedures done? @ -No Diagnosis/symptom? @ -Fall, lumbar spine region contusion, abrasion Acute, or Chronic, or Acute on Chronic? @ -Acute Uncomplicated (without systemic symptoms) or Complicated (systemic symptoms)? @ -Uncomplicated Side effects of treatment? @ -None Exacerbation, Progression, or Severe Exacerbation] @ -No Poses a threat to life or bodily function? @ -Unlikely at this time Disposition Clinical Impression: Fall, Contusion of lumbar spinal region, Abrasion Disposition: HOME SELF-CARE Condition: Good Instructions (If sedation given, give patient instructions): Fall Prevention for Older Adults (ED), Contusion in Adults (ED), Abrasion (ED) Is patient prescribed a controlled substance at d/c from ED?: Yes When asked, does pt state using other controlled substances?: No If prescribed controlled substance>3 days was MAPS reviewed?: Prescribed <3 Days If opioid is for acute pain is fill amount 7 days or less?: Yes If Rx opioid, was Start Talking consent form obtained?: Yes Referrals: Alan Butler DO [Primary Care Provider] - 1-2 days Feliciano Fontenot DO [Doctor of Osteopathic Medicine] - 1-2 days Time of Disposition: 17:04
--- NOTE | 2024-11-13 16:09 | CT ---
EXAMINATION TYPE: CT lumbar spine wo con DATE OF EXAM: 11/13/2024 4:01 PM COMPARISON: CLINICAL INDICATION: Male, 78 years old with history of fall, lower back/sacrum bruising posteriorly; PHH, Fall, lower back/sacrum bruising posteriorly. TECHNIQUE: Unenhanced CT of the lumbar spine was performed. Bone and soft tissue window settings are submitted as well as coronal and sagittal reconstructions. CT DLP: [address] CTDI: mGy Automated exposure control for dose reduction was used. FINDINGS: The lumbar vertebral segments are normal in height and alignment and there is no fracture or subluxat ion. The disc spaces are well preserved in height. There is mild spondylosis throughout the lumbar re gion suggesting mild degenerative disc disease. There are no lumbar disc herniations. Secondary to circumferential disc bulge, marked facet hypertrophy and thickening of ligamentum flavu m, there is moderate to possibly severe spinal stenosis at the L4-5 level. There is moderate to marke d facet are particularly at the L4-5 and L5-S1 levels and mild hypertrophy at the L3-4 level. There is mild bony neural foraminal encroachment at the L5-S1 level bilaterally and at the L3-4 level on the left. IMPRESSION: 1. No lumbar spine fracture or malalignment. 2. Mild degenerative disease throughout the lumbar spine. No large lumbar disc herniation. 3. Moderate to possibly severe spinal stenosis at the L4-5 level. 4. Mild multilevel bony neural foraminal encroachment as described above. [facility], , 11/13/2024 4:06 PM
--- NOTE | 2024-11-13 16:12 | CT ---
EXAMINATION TYPE: CT pelvis wo con DATE OF EXAM: 11/13/2024 COMPARISON: None CLINICAL INDICATION: Male, 78 years old with history of fall, lower back/sacrum bruising posteriorly; PHH, Fall, lower back/sacrum bruising posteriorly. CT DLP: 728.8 mGycm Automated exposure control for dose reduction was used. FINDINGS: The hips are normal and symmetric is no fracture or dislocation. The pelvis is intact without fracture or focal intraosseous abnormality. There is no diastasis of the SI joints or pubic symphysis. There is moderate to marked facet hypertrophy in the lower lumbar spine and there is a moderate to se mio spinal stenosis at the L4-5 level. Visualized bowel loops are normal in caliber and there is no evidence of obstruction. No inflammatory changes are identified in the lower abdomen or pelvis. There is moderate prostatic hypertrophy. IMPRESSION: 1. No acute trauma to the pelvis or hips. 2. Moderate to marked spinal stenosis at the L4-5 level. 3. moderate prostatic hypertrophy. IMPRESSION: [facility], , 11/13/2024 4:10 PM
[2024-11-13] MEDS: ACET/COD 300 MG/30 MG STARTER PACK 6 TAB BTL PO STA (17:17)
[2024-11-13 17:27] VITALS: BP 130/86; PULSE 80; RESP 20; TEMP 98
== END 2024-11-13 17:26 | disposition home or self-care (01) ==
LOC: EC 15:02
DX: S30.0XXA Contusion of lower back and pelvis, initial encounter (principal); W01.0XXA Fall on same level from slipping, tripping and stumbling without subsequent striking against object, initial encounter; Y92.009 Unspecified place in unspecified non-institutional (private) residence as the place of occurrence of the external cause
CPT/HCPCS: 72131; 72192; 90471; 90715; 99283